=== PATIENT | male | born 1945 | race Caucasian/White ===

== ENCOUNTER → 2020-01-11 14:37 | Outpatient (BNVA) | payer MEDICARE, SELFPAY | PROVIDERS: Family Provider Nurse Practitioner; PCP Nurse Practitioner; Visit Provider Nurse Practitioner | DX: I11.0 Hypertensive heart disease with heart failure (principal) | CPT/HCPCS: 80053; 81003; 85025 ==

== ENCOUNTER → 2020-01-31 09:30 | Outpatient (BNVA) | payer MEDICARE, SELFPAY | PROVIDERS: Family Provider Nurse Practitioner; PCP Nurse Practitioner; Visit Provider Nurse Practitioner | DX: E11.9 Type 2 diabetes mellitus without complications (principal); I10 Essential (primary) hypertension | CPT/HCPCS: 80061; 83036 ==

== ENCOUNTER → 2020-04-20 10:11 | Outpatient (BNVA) | payer MEDICARE, SELFPAY | PROVIDERS: Family Provider Nurse Practitioner; PCP Nurse Practitioner; Visit Provider Nurse Practitioner | DX: I10 Essential (primary) hypertension (principal); E78.5 Hyperlipidemia, unspecified; Z95.1 Presence of aortocoronary bypass graft; E11.9 Type 2 diabetes mellitus without complications; I50.9 Heart failure, unspecified; J44.9 Chronic obstructive pulmonary disease, unspecified | CPT/HCPCS: 80053; 81000; 83036 ==

== ENCOUNTER 2020-05-09 12:53 | Emergency (ER) | payer MEDICARE, SELFPAY ==
[2020-05-09 13:05] VITALS: PULSE 60; RESP 18; TEMP 36.5; O2SAT 91; BMI 28.8
--- NOTE | 2020-05-09 14:01 | W.ED.SKABFB ---
HPI - Skin/Abscess/Foreign Bdy General: Chief complaint: General Medical Stated complaint: chemical ortega Time Seen by Provider: 05/09/20 13:35 Source: patient Mode of arrival: ambulatory Limitations: no limitations History of Present Illness: HPI narrative: Patient is a very nice 75-year-old male who presents to ED today with complaints of itching to his bilateral forearms. Patient tells me approximately 1.5 weeks ago he was spraying bug spray around his house when the wind caused some of the spray to get on his forearms. Patient tells me he irrigated the arms but has noticed itching since that time. He has been trying several OTC lotions/creams/ointments without much relief. He states placing cold packs on his arms seems to help with the itching. He has not noticed any blisters or swelling. Patient has not started any new medications recently. He has had no other known household or chemical exposures. MD complaint: rash Onset (ago): day(s) Tetanus up to date: yes Location: E and RUE Quality: pruritic Pain Consistency: constant Relieving factors: cold therapy Exacerbating factors: none Context: other (chemical use) Associated symptoms: Deny chills, fever(s), nausea or vomiting Review of Systems Const: Denies: fever(s) or chills Eyes: Denies: change in vision, blurry vision, photophobia, floaters or seeing flashes ENMT: Denies: throat pain, enlarged tonsils, odynophagia, swelling of lips/tongue, oral sores, bleeding gums, nasal discharge or nasal congestion Card: Denies: chest pain Resp: Denies: dyspnea GI: Denies: abdominal pain, nausea or vomiting Musc: Denies: neck pain or back pain Skin/Breast: Reports: rash and pruritus; Denies: skin pain Neuro: Denies: numbness in extremities or sensory changes PFS ED PFSH: Medical History (Updated 05/09/20 @ 14:04 by AARON Allison) Abdominal aortic aneurysm (AAA) Aortic stenosis, mild Carotid stenosis CHF (congestive heart failure) CKD (chronic kidney disease) COPD (chronic obstructive pulmonary disease) Dyslipidemia History of stent insertion of renal artery Hypertension Occlusion of right internal carotid artery Pulmonary emphysema Renal artery stenosis Tobacco abuse Type 2 diabetes mellitus Surgical History Aortocoronary bypass status History of carotid artery stenosis History of colon cancer 2014 History of endovascular stent graft for abdominal aortic aneurysm (AAA) History of fracture of right shoulder 3 times surgery- bone repair with screws and anchor History of procedure for peripheral vascular disease Right leg Hx of primary malignant neoplasm of urinary bladder Status post four vessel coronary artery bypass (~02/2014) Family History Family/Other Diabetes Hypertension CAD (coronary artery disease) Social History Smoking and tobacco status: current every day smoker Second hand smoke exposure: Yes Smoking risk assessment/counseling performed?: Yes Alcohol intake: current Desire information about alcohol rehabilitation?: No Counseling given: No Desire information about substance/drug rehabilitation?: No Counseling given: No Adopted: No Caregiver/support person: No Lives independently: Yes Household members: spouse Housing: House Marital status: service: No Current occupational status: retired History of recent travel: No Current gender identity: Male Physical Exam Const: COMMON NORMALS: no acute distress, average body habitus, patient oriented x3, no limitations, healthy appearing, alert and well nourished HENMT: COMMON NORMALS: normocephalic and atraumatic HEAD & SCALP: normocephalic and atraumatic Resp: COMMON NORMALS: normal respiratory effort and clear to auscultation bilaterally AUSCULTATION: clear to auscultation bilaterally Cardio: COMMON NORMALS: regular rate and regular rhythm RATE: regular rate RHYTHM: regular rhythm Extremity: COMMON NORMALS: normal to inspection, full ROM, capillary refill normal, no joint enlargement and no clubbing, cyanosis or edema GENERAL: Yes normal exam except as noted Neuro: COMMON NORMALS: patient oriented x3 SENSORIUM/ORIENTATION: Yes alert Skin: OTHER: 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; he has a few scattered erythematous papules to bilateral forearms that he state are itchy Course Vital Signs: Vital signs: Vital Signs Temperature 97.7 F 05/09/20 13:05 Pulse Rate 78 05/09/20 14:32 Respiratory Rate 18 05/09/20 14:32 Blood Pressure 136/75 05/09/20 14:32 Pulse Oximetry 98 05/09/20 14:32 Discharge Plan Discharge Patient Disposition: Home, Self-Care Clinical Impression: Irritant contact dermatitis Qualifiers: Contact dermatitis trigger: other chemical product Qualified Code(s): L24.5 - Irritant contact dermatitis due to other chemical products Condition: Stable Prescriptions: New hydrocortisone 1 % cream 1 applic TOPICAL BID PRN (Reason: itching) Qty: 14.2 RF: 0 prednisone 10 mg tablet 10 mg PO DAILY 7 Days Qty: 20 RF: 0 No Action nitroglycerin [Nitrostat] 0.4 mg tablet, sublingual 0.4 mg SUBLINGUAL Q5M PRN (Reason: chest pain) Qty: 25 RF: 5 amlodipine [Norvasc] 10 mg tablet 10 mg PO DAILY Qty: 30 RF: 2 fenofibrate nanocrystallized [Tricor] 145 mg tablet 145 mg PO DAILY Qty: 30 RF: 2 furosemide 40 mg tablet 40 mg PO BID Qty: 60 RF: 2 isosorbide mononitrate 60 mg tablet extended release 24 hr 60 mg PO BID Qty: 60 RF: 2 Tradjenta 5 mg tablet 5 mg PO DAILY Qty: 30 RF: 2 metolazone 2.5 mg tablet 2.5 mg PO DAILY Qty: 14 RF: 0 Anoro Ellipta 62.5-25 mcg/actuation blister with device 1 inh INHALATION DAILY Qty: 60 RF: 2 metoprolol tartrate 75 mg tablet 75 mg PO BID Qty: 60 RF: 2 hydralazine 50 mg tablet 50 mg PO TID Qty: 90 RF: 2 Discharge Orders: Discharge Order (Routine); Ordered 05/09/20 Ordered By: Candis Yao Referrals: Glenys Portillo, [facility] [Primary Care Provider] - Patient Instructions: Chemical Ortega, Dermatitis (Contact), Chemical Skin Burn (ED) Discharge Date/Time: 05/09/20 14:36 Coding Level of Care Code ED Media Relations Coordinator for Katherine Orr
[2020-05-09 14:32] VITALS: BP 136/75; PULSE 78; RESP 18; O2SAT 98
== END 2020-05-09 14:36 | disposition home or self-care (01) ==
PROVIDERS: Emergency Provider Physician Assistant; PCP Nurse Practitioner
DX: T65.891A Toxic effect of other specified substances, accidental (unintentional), initial encounter (principal); L24.5 Irritant contact dermatitis due to other chemical products; F17.210 Nicotine dependence, cigarettes, uncomplicated; I11.0 Hypertensive heart disease with heart failure; I50.9 Heart failure, unspecified; J44.9 Chronic obstructive pulmonary disease, unspecified; E78.5 Hyperlipidemia, unspecified; E11.9 Type 2 diabetes mellitus without complications
CPT/HCPCS: 12345; 99281

== ENCOUNTER → 2020-07-17 15:54 | Outpatient (BNVA) | payer MEDICARE, SELFPAY | PROVIDERS: PCP Nurse Practitioner; Visit Provider Nurse Practitioner | DX: E11.65 Type 2 diabetes mellitus with hyperglycemia (principal); I12.9 Hypertensive chronic kidney disease with stage 1 through stage 4 chronic kidney disease, or unspecified chronic kidney disease; N18.9 Chronic kidney disease, unspecified; E55.9 Vitamin D deficiency, unspecified; E78.5 Hyperlipidemia, unspecified; Z95.1 Presence of aortocoronary bypass graft; J43.1 Panlobular emphysema; K21.9 Gastro-esophageal reflux disease without esophagitis | CPT/HCPCS: 80053; 80061; 81000; 82306; 82310; 83036; 83970; 85025 ==

== ENCOUNTER → 2020-10-17 10:47 | Outpatient (BNVA) | payer MEDICARE, SELFPAY | PROVIDERS: PCP Nurse Practitioner; Visit Provider Nurse Practitioner | DX: J43.1 Panlobular emphysema (principal); E78.5 Hyperlipidemia, unspecified; Z95.1 Presence of aortocoronary bypass graft; E11.65 Type 2 diabetes mellitus with hyperglycemia; K21.9 Gastro-esophageal reflux disease without esophagitis; E55.9 Vitamin D deficiency, unspecified; I11.0 Hypertensive heart disease with heart failure; I50.9 Heart failure, unspecified | CPT/HCPCS: 80053; 81000; 83036; 85025 ==

== ENCOUNTER 2021-01-02 21:00 | Inpatient (IN) | payer MEDICARE, SELFPAY ==
[2021-01-02] VITALS (7 sets, daily range): BP systolic 143–192; BP diastolic 83–96; PULSE 63–73; RESP 21–24; TEMP 36.6; O2SAT 92–98; BMI 28.2
--- NOTE | 2021-01-02 21:11 | ECG_ITS ---
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 Measurements Intervals [place] Rate: 74 P: 110 DE: 268 QRS: -41 QRSD: 154 T: 88 QT: 427 QTc: 475 Interpretive Statements SINUS RHYTHM WITH FIRST DEGREE AV BLOCK LEFT AXIS DEVIATION [QRS AXIS < -30] LEFT BUNDLE BRANCH BLOCK [120+ ms QRS DURATION, 80+ ms Q/S IN V1/V2, 85+ ms R IN I/aVL/V5/V6] Compared to ECG 12/24/2018 14:33:52 First degree AV block now present Sinus bradycardia no longer present Short DE interval no longer present Electronically Signed On 01-03-2021 20:25:38 AQUACULTURE PROGRAM DIRECTOR by Lauren Thomas M.D. [email or web address]
--- NOTE | 2021-01-02 21:11 | XR_ITS ---
WS: [id number] Portable AP upright chest, 01/02/2021 Clinical Data: sob Comparison: PA and lateral chest, 12/24/2018. Findings: Patchy bilateral opacities may represent interstitial edema.. The heart is enlarged. No nod ules, masses or effusions are seen. Midline sternotomy sutures are present. The aortic arch and desce nding aorta show calcification and tortuosity. There is an orthopedic anchor in the right humeral hea d. XR/XR chest 1V portable [id number] Impression: 1. Cardiomegaly and atherosclerosis. 2. Diffuse interstitial opacities which may represent pulmonary edema.
--- NOTE | 2021-01-02 21:22 | ED_ITS ---
HPI - SOB/Dyspnea General: Chief Complaint: Shortness of Breath/Dyspnea Stated Complaint: COPD/RESP. DISTRESS Time Seen by Provider: 01/02/21 21:14 Source: patient and EMS Mode of arrival: EMS Limitations: no limitations History of Present Illness: HPI Narrative: 76-year-old male has a history of congestive heart failure states tonight he started having increasing shortness of breath. Patient called EMS and he was hypoxic and they arrived and he has been on 4 L. Patient is in distress and able to talk in roughly 5-7 word sentences. He denies any fever or cough. Denies any chest pain. Patient is not on oxygen at baseline. Associated symptoms: Deny abdominal pain, chest pain, fever(s), nausea or vomiting Review of Systems Const: Denies: fever(s), chills, body aches or change in appetite Eyes: Denies: blurry vision or eye discomfort ENMT: Denies: throat pain or dental pain Card: Denies: chest pain Resp: Reports: dyspnea GI: Denies: abdominal pain, nausea, vomiting or diarrhea : Denies: dysuria Musc: Denies: neck pain or back pain Skin/Breast: Denies: rash Neuro: Denies: headache(s) Psych: Denies: depression David/Lymph: Denies: easy bruising All/Imm: Denies: urticaria PFSH ED PFSH: Medical History Abdominal aortic aneurysm (AAA) Aortic stenosis, mild Carotid stenosis CHF (congestive heart failure) CKD (chronic kidney disease) COPD (chronic obstructive pulmonary disease) Dyslipidemia History of stent insertion of renal artery Hypertension Occlusion of right internal carotid artery Pulmonary emphysema Renal artery stenosis Tobacco abuse Type 2 diabetes mellitus Vitamin D deficiency Surgical History Aortocoronary bypass status History of carotid artery stenosis History of colon cancer 2014 History of endovascular stent graft for abdominal aortic aneurysm (AAA) History of fracture of right shoulder 3 times surgery- bone repair with screws and anchor History of procedure for peripheral vascular disease Right leg Hx of primary malignant neoplasm of urinary bladder Status post four vessel coronary artery bypass (~02/2014) Family History Family/Other Diabetes Hypertension CAD (coronary artery disease) Social History Smoking and tobacco status: current every day smoker Second hand smoke exposure: Yes Smoking risk assessment/counseling performed?: Yes Alcohol intake: current Desire information about alcohol rehabilitation?: No Counseling given: No Desire information about substance/drug rehabilitation?: No Counseling given: No Adopted: No Caregiver/support person: No Lives independently: Yes Household members: spouse Housing: House Marital status: service: No Current occupational status: retired History of recent travel: No Current gender identity: Male Physical Exam Const: COMMON NORMALS: patient oriented x3 GENERAL APPEARANCE: in distress and ill appearing HENMT: COMMON NORMALS: normocephalic and atraumatic HEAD & SCALP: normocephalic and atraumatic Eye: COMMON NORMALS: Equal, round and reactive pupils present and EOMs intact bilaterally PUPIL: Yes Equal, round and reactive pupils present Neck/C-Spine: COMMON NORMALS: full ROM and supple Chest: COMMONS NORMALS: normal inspection of the chest and normal palpation of entire chest wall Resp: EFFORT & INSPECTION: Yes tachypneic and Yes respiratory distress AUSCULTATION: rales Cardio: COMMON NORMALS: regular rate, regular rhythm and No murmurs present (Cardio) RATE: regular rate RHYTHM: regular rhythm GI: COMMON NORMALS: Normal to inspection, nondistended, normoactive bowel sounds present, Soft to palpation, non-tender and no masses PALPATION: Yes Soft to palpation Extremity: COMMON NORMALS: full ROM NARRATIVE EXTREMITY EXAM: 2+ edema Neuro: COMMON NORMALS: patient oriented x3, moves all extremities and no focal motor deficits Psych: COMMON NORMALS: mental status grossly normal, Normal thought process present and cooperative THOUGHT PROCESS: Normal thought process present Skin: COMMON NORMALS: no rashes or lesions noted and no wounds GENERAL SKIN EXAM: no rashes or lesions noted Course Vital Signs: Vital signs: Vital Signs Temperature 97.9 F 01/02/21 21:20 Pulse Rate 72 01/02/21 21:24 Respiratory Rate 24 H 01/02/21 21:24 Blood Pressure 172/83 01/02/21 21:24 Pulse Oximetry 98 01/02/21 21:24 MDM - SOB/Dyspnea MDM Narrative: Medical decision making narrative: Max presents here with CHF exacerbation and is requiring oxygen. Patient given Lasix here. Patient had blood pressure treatment as well. I spoke to the hospitalist and will admit. Is no signs of pulmonary embolism. EKG here shows no sign of acute STEMI. Lab Data: Labs: Lab Results 01/02/21 01/02/21 01/02/21 Range/Units 21:30 21:30 21:30 WBC 13.1 H (4.0-10.0) 10^3/ uL RBC 4.47 (4.1-5.3) 10^6/u L Hgb 13.2 (11.7-16.6) g/dL Hct 40.9 L (42.0-52.0) % MCV 91.5 (80-94) fL MCH 29.5 (28.0-34.0) pg MCHC 32.3 (30.0-36.0) g/dL RDW 15.9 H (12.1-15.1) % Plt Count 260 (130-400) 10^3/c mm MPV 10.3 (7.4-10.4) fL Neut % (Auto) 90.7 % Lymph % (Auto) 3.0 % [place] % (Auto) 4.8 % Eos % (Auto) 0.0 % Baso % (Auto) 0.4 % Neut # (Auto) 11.86 H (1.8-7.7) 10^3/u L Lymph # (Auto) 0.4 L (0.8-4.8) 10^3/u L [place] # (Auto) 0.6 (0.2-0.9) 10^3/u L Eos # (Auto) 0.0 (0.0-0.8) 10^3/u L Baso # (Auto) 0.1 (0.0-0.1) 10^3/u L Nucleated RBC % (a uto) 0 % Nucleated RBCs # 0.0 /100WBC Sodium 138 (136-145) mmol/L Potassium 3.6 (3.5-5.1) mmol/L Chloride 99 (98-107) mmol/L Carbon Dioxide 26 (22-29) mmol/L Anion Gap 16.6 (5-19) BUN 34 H (8-23) mg/dL Creatinine 2.3 H (0.7-1.2) mg/dL GFR Calculation Not Reportable Glucose 134 H (65-115) mg/dL Calculated Osmolal ity 296 H (285-295) mOsm/k g Calcium 10.0 (8.5-10.5) mg/dL Total Bilirubin 1.3 H (0.15-1.2) mg/dL AST 17 (0-40) U/L ALT 13 (0-41) U/L Alkaline Phosphata se 39 L (40-130) IU/L Troponin T Baselin e 99 H (0-15) ng/L NT-Pro-B Natriuret Pep 64209 H (0-450) pg/mL Total Protein 7.6 (6.6-8.7) g/dL Albumin 3.9 (3.5-5.2) g/dL Globulin 3.7 (1.3-4.6) g/dL SARS-CoV-2 Ag (Rap id) (Negative) 01/02/21 Range/Units 21:59 WBC (4.0-10.0) 10^3/ uL RBC (4.1-5.3) 10^6/u L Hgb (11.7-16.6) g/dL Hct (42.0-52.0) % MCV (80-94) fL MCH (28.0-34.0) pg MCHC (30.0-36.0) g/dL RDW (12.1-15.1) % Plt Count (130-400) 10^3/c mm MPV (7.4-10.4) fL Neut % (Auto) % Lymph % (Auto) % [place] % (Auto) % Eos % (Auto) % Baso % (Auto) % Neut # (Auto) (1.8-7.7) 10^3/u L Lymph # (Auto) (0.8-4.8) 10^3/u L [place] # (Auto) (0.2-0.9) 10^3/u L Eos # (Auto) (0.0-0.8) 10^3/u L Baso # (Auto) (0.0-0.1) 10^3/u L Nucleated RBC % (a uto) % Nucleated RBCs # /100WBC Sodium (136-145) mmol/L Potassium (3.5-5.1) mmol/L Chloride (98-107) mmol/L Carbon Dioxide (22-29) mmol/L Anion Gap (5-19) BUN (8-23) mg/dL Creatinine (0.7-1.2) mg/dL GFR Calculation Glucose (65-115) mg/dL Calculated Osmolal ity (285-295) mOsm/k g Calcium (8.5-10.5) mg/dL Total Bilirubin (0.15-1.2) mg/dL AST (0-40) U/L ALT (0-41) U/L Alkaline Phosphata se (40-130) IU/L Troponin T Baselin e (0-15) ng/L NT-Pro-B Natriuret Pep (0-450) pg/mL Total Protein (6.6-8.7) g/dL Albumin (3.5-5.2) g/dL Globulin (1.3-4.6) g/dL SARS-CoV-2 Ag (Rap id) Negative (Negative) Imaging Data^: CXR: Attestation: I personally reviewed and interpreted this imaging study as follows: Radiologist's impression: pulmonary edema EKG Data^: EKG 1: Attestation: I personally reviewed and interpreted this EKG as follows: EKG Interpretation Date: 01/02/21 EKG interpretation time: 21:19 Interpretation: nsr hr [address] or t wave abnormalitie qrs 154 qtc 454 LBBB LAd Discharge Plan Discharge Patient Disposition: Admitted As Inpatient Clinical Impression: CHF (congestive heart failure), Hypertension Condition: Stable Prescriptions: No Action nitroglycerin [Nitrostat] 0.4 mg tablet, sublingual 0.4 mg SUBLINGUAL Q5M PRN (Reason: chest pain) Qty: 25 RF: 5 amlodipine [Norvasc] 10 mg tablet 10 mg PO DAILY Qty: 30 RF: 2 budesonide-formoterol [Symbicort] 160-4.5 mcg/actuation HFA aerosol inhaler 2 puff INHALATION Q12H Qty: 10.2 RF: 2 fenofibrate nanocrystallized [Tricor] 145 mg tablet 145 mg PO DAILY Qty: 30 RF: 2 furosemide 40 mg tablet 40 mg PO BID Qty: 60 RF: 2 hydralazine 50 mg tablet 50 mg PO TID Qty: 90 RF: 2 isosorbide mononitrate 60 mg tablet extended release 24 hr 60 mg PO BID Qty: 60 RF: 2 Tradjenta 5 mg tablet 5 mg PO DAILY Qty: 30 RF: 2 metoprolol tartrate 75 mg tablet 75 mg PO BID Qty: 60 RF: 2 famotidine [Pepcid] 40 mg tablet 40 mg PO BID Qty: 180 RF: 0 cholecalciferol (vitamin D3) 125 mcg (5,000 unit) capsule 125 mcg PO DAILY Qty: 90 RF: 0 metolazone 2.5 mg tablet 2.5 mg PO DAILY PRN (Reason: edema) Qty: 14 RF: 0 hydrocortisone 1 % cream 1 applic TOPICAL BID PRN (Reason: itching) Qty: 14.2 RF: 0 Referrals: Glenys Portillo FNP-C [Primary Care Provider] - Coding Level of Care Code ED Animal Skinner for Chg Fwd Exam Comprehensive
[2021-01-02 21:50] LABS: Basophils # 0.1 10^3/uL (0.0-0.1); Basophils % 0.4 %; Hematocrit 40.9 % (42.0-52.0); Hemoglobin 13.2 g/dL (11.7-16.6); Lymphocytes # 0.4 10^3/uL (0.8-4.8); Mean Corpuscular HGB Conc 32.3 g/dL (30.0-36.0); Mean Corpuscular Hemoglobin 29.5 pg (28.0-34.0); Mean Corpuscular Volume 91.5 fL (80-94); Mean Platelet Volume 10.3 fL (7.4-10.4); Monocytes # 0.6 10^3/uL (0.2-0.9); Monocytes % 4.8 %; Neutrophils # 11.86 10^3/uL (1.8-7.7); Neutrophils % 90.7 %; Nucleated Red Blood Cells % 0 %; Platelet Count 260 10^3/cmm (130-400); Red Blood Count 4.47 10^6/uL (4.1-5.3); Red Cell Distribution Width 15.9 % (12.1-15.1); White Blood Count 13.1 10^3/uL (4.0-10.0)
[2021-01-02] MEDS: FUROsemide 10 mg/mL SDV 4mL 40 MG IVP (21:56)
[2021-01-02 22:36] LABS: Troponin(5th) Baseline 99 ng/L (0-15)
[2021-01-02 22:44] LABS: Alanine Aminotransferase 13 U/L (0-41); Albumin Level 3.9 g/dL (3.5-5.2); Alkaline Phosphatase 39 IU/L (40-130); Anion Gap 16.6 (5-19); Aspartate Amino Transferase 17 U/L (0-40); Blood Urea Nitrogen 34 mg/dL (8-23); Carbon Dioxide 26 mmol/L (22-29); Chloride 99 mmol/L (98-107); Globulin 3.7 g/dL (1.3-4.6); Glucose 134 mg/dL (65-115); NT Pro B Type Natriuretic Pept 16079 pg/mL (0-450); Osmolality Calculated 296 mOsm/kg (285-295); Potassium 3.6 mmol/L (3.5-5.1); Sodium 138 mmol/L (136-145); Total Bilirubin 1.3 mg/dL (0.15-1.2); Total Protein 7.6 g/dL (6.6-8.7)
[2021-01-02 22:45] LABS: SARS Covid-2 Antigen Negative (Negative)
[2021-01-02] MEDS: labetalol 5 mg/mL SDV 20mL 10 MG IVP (23:12)
--- NOTE | 2021-01-02 23:12 | P.HP_ITS ---
Providers/Chief Complaint Primary Care Provider: KASHMIR Krueger Chief Complaint: COPD/RESP. DISTRESS History of Present Illness Zak Gibbs is a 76 year old male with a history of congestive heart failure, coronary artery disease, hypertension presented to the emergency department with a complaint of progressive bilateral lower extremity swelling and shortness of breath. Patient stated his lower extremity edema continued to get worse despite being compliant with his oral Lasix therapy. Chest x-ray done in the ED demon strates pulmonary edema. BNP is significantly elevated. His troponin is elevated. Patient is not hypoxic. He is admitted for further management of CHF exacerbation. Review of Systems Narrative: Except as documented, all other systems reviewed and negative. Medications/Allergies Home Medications Medication Instructions Recorded Confirmed Last Taken Type nitroglycerin 0.4 mg sublingual 0.4 mg SUBLINGUAL Q5M PRN #25 tab 02/02/20 10/17/20 Unknown Rx tablet hydrocortisone 1 applic TOPICAL BID PRN #14.2 gm 05/09/20 10/17/20 Unknown Rx amlodipine 10 mg tablet 10 mg PO DAILY #30 tab 10/17/20 10/17/20 Unknown Rx budesonide-formoterol HFA 160 2 puff INHALATION Q12H #10.2 gm 10/17/20 10/17/20 Unknown Rx mcg-4.5 mcg/actuation aerosol inhaler cholecalciferol (vitamin D3) 125 125 mcg PO DAILY #90 cap 10/17/20 10/17/20 Unknown Rx mcg (5,000 unit) capsule famotidine 40 mg tablet 40 mg PO BID #180 tab 10/17/20 10/17/20 Unknown Rx fenofibrate nanocrystallized 145 145 mg PO DAILY #30 tab 10/17/20 10/17/20 Unknown Rx mg tablet furosemide 40 mg tablet 40 mg PO BID #60 tab 10/17/20 10/17/20 Unknown Rx hydralazine 50 mg tablet 50 mg PO TID #90 tab 10/17/20 10/17/20 Unknown Rx isosorbide mononitrate 60 mg 60 mg PO BID #60 tab 10/17/20 10/17/20 Unknown Rx tablet,extended release 24 hr linagliptin 5 mg tablet 5 mg PO DAILY #30 tab 10/17/20 10/17/20 Unknown Rx metolazone 2.5 mg tablet 2.5 mg PO DAILY PRN #14 tab 10/17/20 10/17/20 Unknown Rx metoprolol tartrate 75 mg tablet 75 mg PO BID #60 tab 10/17/20 10/17/20 Unknown Rx Allergies Allergy/AdvReac Type Severity Reaction Status Date / Time morphine Allergy Unknown Verified 01/02/21 21:24 PFSH Acute PFSH: Medical History Abdominal aortic aneurysm (AAA) Aortic stenosis, mild Carotid stenosis CHF (congestive heart failure) CKD (chronic kidney disease) COPD (chronic obstructive pulmonary disease) Dyslipidemia History of stent insertion of renal artery Hypertension Occlusion of right internal carotid artery Pulmonary emphysema Renal artery stenosis Tobacco abuse Type 2 diabetes mellitus Vitamin D deficiency Surgical History Aortocoronary bypass status History of carotid artery stenosis History of colon cancer 2014 History of endovascular stent graft for abdominal aortic aneurysm (AAA) History of fracture of right shoulder 3 times surgery- bone repair with screws and anchor History of procedure for peripheral vascular disease Right leg Hx of primary malignant neoplasm of urinary bladder Status post four vessel coronary artery bypass (~02/2014) Family History Family/Other Diabetes Hypertension CAD (coronary artery disease) Social History Smoking and tobacco status: current every day smoker Second hand smoke exposure: Yes Smoking risk assessment/counseling performed?: Yes Alcohol intake: current Desire information about alcohol rehabilitation?: No Counseling given: No Desire information about substance/drug rehabilitation?: No Counseling given: No Adopted: No Caregiver/support person: No Lives independently: Yes Household members: spouse Housing: House Marital status: service: No Current occupational status: retired History of recent travel: No Current gender identity: Male Vitals/I&O/Wt Last Vital Signs Temp 97.9 F 01/02/21 21:20 Pulse 72 01/02/21 21:24 Resp 24 H 01/02/21 21:24 BP 172/83 01/02/21 21:24 Pulse Ox 98 01/02/21 21:24 Weight last 48 hrs Weight 99.79 kg Physical Exam Const: COMMON NORMALS: no acute distress, patient oriented x3, alert and well nourished GENERAL APPEARANCE: cooperative HENMT: COMMON NORMALS: normocephalic and atraumatic MOUTH: Normal oral and palatal mucosa present and moist mucous membranes abnormal Eye: COMMON NORMALS: Equal, round and reactive pupils present, EOMs intact bilaterally, conjunctivae normal and no scleral icterus Neck/C-Spine: COMMON NORMALS: no lymphadenopathy, supple and no JVD Lymph: LYMPHATIC: no lymphadenopathy noted Chest: COMMONS NORMALS: normal inspection of the chest and normal palpation of entire chest wall Resp: COMMON NORMALS: normal respiratory effort and No retractions AUSCULTATION: crackles Laterality: bilateral, no rhonchi and no wheezes Cardio: COMMON NORMALS: regular rate, regular rhythm, S1 normal heart sound present and S2 normal heart sound present GI: COMMON NORMALS: Normal to inspection, nondistended, normoactive bowel so unds present, Soft to palpation, non-tender and No hepatosplenomegaly present : COMMON NORMALS: Yes no CVA tenderness Back/Pelvis: COMMON NORMALS: no thoracic nor lumbar tenderness and thoraco- lumbar ROM normal Extremity: OTHER: 3+ bilateral lower extremity pitting edema Neuro: COMMON NORMALS: patient oriented x3, CN's II-XII intact bilaterally, moves all extremities and no focal motor deficits Psych: COMMON NORMALS: mental status grossly normal, Normal thought process present, cooperative and speech normal Skin: COMMON NORMALS: no rashes or lesions noted and no jaundice Data : 01/03/21 03:25 01/03/21 03:25 A&P Assessment and plan (1) Acute exacerbation of CHF (congestive heart failure): Status: Acute (2) Pulmonary edema: Status: Acute (3) Chronic kidney disease, stage III (moderate): Status: Acute (4) COPD (chronic obstructive pulmonary disease): Status: Chronic Qualifiers: COPD type: emphysema Emphysema type: panlobular Qualified Code(s): J43.1 - Panlobular emphysema (5) Type 2 diabetes mellitus: Status: Chronic Qualifiers: Diabetes mellitus complication status: with hyperglycemia Diabetes mellitus usp insulin use: without buttermaker helper use Qualified Code(s): E11.65 - Type 2 diabetes mellitus with hyperglycemia (6) Elevated troponin: Status: Acute Additional A&P Information Admit to the medical floor. Elevated troponin likely secondary to demand ischemia. Patient has no chest pain. Treat CHF exacerbation with IV Lasix. We will continue his home dose metolazone. Daily weight. Restrict fluid to 1500 mls per day. Obtain echocardiogram. Bronchodilators Insulin sliding scale for glucose management. Aggressive blood pressure control. Hydralazine IV as needed for BP spikes. Continue home antihypertensives. Attestations Medical Necessity Statement*: Patient need to be hospitalized for further management of CHF exacerbation that has failed outpatient treatment. He is expected to spend more than 2 midnights. Coding Level of Care Code Acute Transit Mixer Operator for [facility] Fwd Exam Comprehensive Diagnoses Acute exacerbation of CHF (congestive heart failure) I50.9 Pulmonary edema J81.1 Chronic kidney disease, stage III (moderate) N18.30 COPD (chronic obstructive pulmonary disease) J43.1 COPD type: emphysema Emphysema type: panlobular Type 2 diabetes mellitus E11.65 Diabetes mellitus complication status: with hyperglycemia Diabetes mellitus usp insulin use: without buttermaker helper use Elevated troponin R77.8
--- NOTE | 2021-01-02 23:20 | ECG_ITS ---
[facility] Test Date: 2021-01-02 Pat Name: Zak Gibbs Department: Room: Gender: Male Human Resources Temp: : 1945 Requested By: Marylou Hernandez Order Number: [id number] Ottoniel MD: Lauren Thomas M.D. Measurements Intervals [place] Rate: 71 P: 113 [place]: 304 QRS: -35 QRSD: 150 T: 74 QT: 429 QTc: 467 Interpretive Statements SINUS RHYTHM WITH FIRST DEGREE AV BLOCK LEFT AXIS DEVIATION [QRS AXIS < -30] LEFT BUNDLE BRANCH BLOCK [120+ ms QRS DURATION, 80+ ms Q/S IN V1/V2, 85+ ms R IN I/aVL/V5/V6] Compared to ECG 01/02/2021 21:19:01 No significant changes Electronically Signed On 01-03-2021 20:30:47 PHOTOGRAPHY ASSISTANT by Lauren Thomas M.D. [id number]
--- NOTE | 2021-01-02 23:33 | PC.NURSE ---
EKG done at 2330 shown to ER doctor
[2021-01-03] VITALS (7 sets, daily range): BP systolic 148–165; BP diastolic 67–85; PULSE 62–71; RESP 18–20; TEMP 36.5–36.9; O2SAT 92–97; BMI 28.2
[2021-01-03 00:12] LABS: Troponin 5 2HR 127.4 ng/L (0-15); Troponin 5 2HR Delta 28.4 ABS# (0-10)
--- NOTE | 2021-01-03 01:30 | USCV_ITS ---
Bernie, Max Age: 76 Gender: M : 1945 Exam Date: 01/03/2021 06:49 Ordering Phys: Angus Villagran MD Technologist: Deyanira Flannery [place] [facility] [place]: CHF BP: 165 / 77 HR: 66 Rhythm: Sinus Technical Quality: Adequate MEASUREMENTS (Male / Female) Normal Values 2D ECHO LV Diastolic Diameter PLAX 6.1 cm 4.2 - 5.9 / 3.9 - 5.3 cm LV Systolic Diameter PLAX 4.6 cm LV Chamber Size 3.4 cm IVS Diastolic Thickness 1.2 cm 0.6 - 1.0 / 0.6 - 0.9 cm IVS Systolic Thickness 1.9 cm LVPW Diastolic Thickness 1.7 cm 0.6 - 1.0 / 0.6 - 0.9 cm LVPW Systolic Thickness 2.3 cm RV Chamber Size 3.9 cm LVOT Diameter 2.1 cm LV Ejection Fraction 2D Teich 49.0 % LV Ejection Fraction MOD 2C 53.6 % LV Ejection Fraction 2C AL 54.1 % LA Diameter 4.4 cm LA Width 4.2 cm LA Height 5.7 cm RA Width 4.7 cm RA Height 5.0 cm Aorta at Sinotubular Diameter 2.5 cm M-MODE LV Diastolic Diameter MM 6.1 cm 4.2 - 5.9 / 3.9 - 5.3 cm LV Systolic Diameter MM 3.7 cm LV Ejection Fraction MM Teich 69.4 % IVS Diastolic Thickness MM 0.9 cm 0.6 - 1.0 / 0.6 - 0.9 cm IVS Systolic Thickness MM 1.1 cm LVPW Diastolic Thickness MM 1.1 cm 0.6 - 1.0 / 0.6 - 0.9 cm LVPW Systolic Thickness MM 1.4 cm Aortic Annulus Diameter 3.0 cm LA Ao Ratio MM 1.5 MV E Point Septal Separation 1.2 cm DOPPLER AV Peak Velocity 199.0 cm/s LVOT Peak Velocity 110.0 cm/s AV Area Cont Eq vti 1.7 cm squared AV Area Cont Eq pk 1.8 cm squared MV Area PHT 6.5 cm squared Mitral E to A Ratio 1.8 MV E' Velocity 84.0 cm/s Mitral E to MV E' Ratio 21.7 Mitral E to LV E' Lateral Ratio 21.1 Mitral E to LV E' Septal Ratio 22.6 TR Peak Velocity 423.0 cm/s TR Peak Gradient 71.6 mmHg TV Peak E Velocity 63.0 cm/s Right Atrial Pressure 3.0 mmHg Pulmonary Artery Systolic Pressu 74.6 mmHg PV Peak Velocity 98.0 cm/s RV Acceleration Time 0.1 s RV Ejection Time 0.3 s RV AcT/ET 0.4 FINDINGS Left Ventricle Normal left ventricular size. LV systolic function is mildly reduced with EF 40 to 45%. Regional wall motion abnormalities cannot be assessed because of limited visualization. Grade 3 diastolic dysfunction is seen. Right Ventricle The right ventricle is normal in size and function. Right Atrium The right atrium is normal in size. Left Atrium The left atrium is dilated. Mitral Valve Mild mitral annular calcification is seen. No significant mitral stenosis. There is trace mitral regurgitation. Aortic Valve Aortic valve is thickened. Mild aortic stenosis is present. There is no aortic regurgitation. Tricuspid Valve Structurally normal tricuspid valve without significant stenosis or regurgitation. Insufficient TR jet to collect RVSP. Pulmonic Valve Structurally normal pulmonic valve without significant stenosis. There is no pulmonic regurgitation. Pericardium Normal pericardium without effusion. Aorta Normal ascending aorta dimension. CONCLUSIONS LV systolic function is mildly reduced with EF of 40 to 45%. Regional wall motion abnormalities cannot be assessed because of limited visualization. Grade 3 diastolic dysfunction is seen. Mild mitral annular calcification is seen. Trace mitral regurgitation present. Left atrial enlargement. Aortic valve is thickened with mild aortic stenosis. Compared to prior study from 10/07/2018, LV systolic function is decreased. Igor Wright MD (Electronically Signed) Final Date: 03 January 2021 12:35 S
[2021-01-03] MEDS: FUROsemide 10 mg/mL SDV 10mL 60 MG IVP (01:55)
[2021-01-03] MEDS: heparin 5,000 unit/mL INJ 1 mL 5000 UNIT SUBCUT (01:55)
[2021-01-03 02:30] LABS: ABG PCO2 48.4 mmHg (35-45); ABG PH Result 7.38 (7.35-7.45); Arterial Blood Gas Hematocrit 42.7 % (42-52); Base Excess ABG 2.3 mmol/L (-2.0-2.0); Blood Gas Allen Test Pos; Blood Gas Operator Identificat HARKR; Blood Gas Sample Site Radial, right; Blood Gas Sample Type Arterial; HCO3 ABG 28.3 mmol/L (22-26); Oxygen Device NC; PO2 ABG 80.2 mmHg (80.0-100.0)
--- NOTE | 2021-01-03 03:20 | ECG_ITS ---
[facility] Test Date: 2021-01-03 Pat Name: Zak Gibbs Department: Room: 271 Gender: Male Compliance Tester: : 1945 Requested By: Marylou Hernandez Order Number: [id number] Ottoniel MD: Lauren Thomas M.D. Measurements Intervals [place] Rate: 68 P: 111 [place]: 287 QRS: -39 QRSD: 178 T: 110 QT: 468 QTc: 501 Interpretive Statements SINUS RHYTHM WITH FIRST DEGREE AV BLOCK MARKED LEFT AXIS DEVIATION [QRS AXIS < -30] INTRAVENTRICULAR CONDUCTION DELAY [130+ ms QRS DURATION] LATERAL MYOCARDIAL INFARCTION [40+ ms Q WAVE AND/OR ST/T ABNORMALITY IN I/aVL/V5/V6], OF INDETERMINATE AGE Compared to ECG 01/02/2021 23:29:52 Intraventricular conduction delay now present Myocardial infarct finding now present Left bundle-branch block no longer present Electronically Signed On 01-03-2021 20:29:23 LUNCHROOM MOTHER by Lauren Thomas M.D. [id number]
[2021-01-03 03:40] LABS: Basophils % 0.1 %; Hematocrit 39.6 % (42.0-52.0); Hemoglobin 12.6 g/dL (11.7-16.6); Lymphocytes # 0.3 10^3/uL (0.8-4.8); Lymphocytes % 4.1 %; Mean Corpuscular HGB Conc 31.8 g/dL (30.0-36.0); Mean Corpuscular Hemoglobin 29.1 pg (28.0-34.0); Mean Corpuscular Volume 91.5 fL (80-94); Mean Platelet Volume 10.2 fL (7.4-10.4); Monocytes # 0.1 10^3/uL (0.2-0.9); Monocytes % 1.7 %; Neutrophils # 7.75 10^3/uL (1.8-7.7); Neutrophils % 93.4 %; Nucleated Red Blood Cells % 0 %; Platelet Count 241 10^3/cmm (130-400); Red Blood Count 4.33 10^6/uL (4.1-5.3); Red Cell Distribution Width 15.9 % (12.1-15.1); White Blood Count 8.3 10^3/uL (4.0-10.0)
[2021-01-03 04:05] LABS: Anion Gap 15.3 (5-19); Blood Urea Nitrogen 36 mg/dL (8-23); Calcium 9.5 mg/dL (8.5-10.5); Carbon Dioxide 27 mmol/L (22-29); Chloride 100 mmol/L (98-107); Glucose 159 mg/dL (65-115); Magnesium 2.7 mg/dL (1.7-2.3); Osmolality Calculated 300 mOsm/kg (285-295); Phosphorus 3.5 mg/dL (2.5-4.5); Potassium 3.3 mmol/L (3.5-5.1); Sodium 139 mmol/L (136-145); Thyroid Stimulating Hormone 0.68 uIU/mL (0.27-4.20)
[2021-01-03 05:27] LABS: Troponin 5 6HR 168.5 ng/L (0-15); Troponin 5 6HR Delta 69.5 ng/L (0-12)
--- NOTE | 2021-01-03 07:14 | PC.NURSE ---
pt stated he will get up for breakfast closer to 8 oclock.
[2021-01-03 08:30] LABS: Partial Thromboplastin Time 35.9 SECONDS (23.9-36.7)
[2021-01-03] MEDS: cholecalciferol (vitamin D3) 1,000 unit Tablet 1000 UNIT PO (09:30)
[2021-01-03] MEDS: amlodipine 10 mg Tablet PO (09:30)
[2021-01-03] MEDS: hyDRALAzine 50 mg Tablet PO (09:30)
[2021-01-03] MEDS: fenofibrate 145 mg Tablet PO (09:30)
[2021-01-03] MEDS: isosorbide mononitrate ER 60 mg Tablet PO (09:30)
[2021-01-03] MEDS: famotidine 20 mg Tablet 40 MG PO (09:30)
[2021-01-03] MEDS: metoprolol tartrate 25 mg Tablet 75 MG PO (09:30)
[2021-01-03] MEDS: heparin 5,000 unit/mL INJ 1 mL IV (09:36)
[2021-01-03] MEDS: heparin drip 25,000 UNIT/500 ML PREMIX 28 UNIT IV (09:40)
--- NOTE | 2021-01-03 09:46 | PM.CONSULT ---
Providers/Reason For Consult Consulting Physican/Specialty*: Igor Wright MD/ Cardiology Reason for Consult*: NSTEMI Requesting Physcian: Dr Rivera Attending Physician: Antoni Rivera MD Primary Care Provider: ELISE KruegerP-C History of Present Illness History of Present Illness 76 year old male past medical history significant for extensive coronary artery disease status post CABG performed at [facility] [place], peripheral vascular disease status post AAA repair, history of renal stenosis and percutaneous intervention to renal artery, history of congestive heart failure, history of chronic kidney disease with baseline creatinine around 2.0, systolic heart failure, hypertension hyperlipidemia presented to ER with burning chest pain, shortness of breath and lower extremity edema. Troponins were elevated with a significant delta. According to patient he was walking yesterday when he started feeling burning sensation in the chest. He has been having increasing swelling in the lower extremities over the last week or so. He has history of noncompliance. He does not want to stay in the hospital and wants to leave. Since coming to the hospital he had 1 more episode of chest pain in the morning. proBNP is more than 16,000. Review of Systems Const: Denies: fever(s), chills, body aches or fatigue Eyes: Denies: change in vision or blurry vision ENMT: Denies: throat pain or odynophagia Card: Reports: chest pain and other (Pretension and hyperlipidemia); Denies: palpitations, irregular heart rhythm, swelling of feet/ankles, lightheadedness, pre-syncope, dyspnea on exertion, orthopnea or leg pain with exertion Resp: Reports: dyspnea, productive cough and other (COPD and smoker); Denies: non-productive cough GI: Denies: nausea, vomiting or heartburn : Denies: difficulty urinating Musc: Denies: neck pain, back pain or joint pain Skin/Breast: Denies: rash or pruritus Neuro: Denies: headache(s), numbness in extremities, weakness in extremities, dizziness or vertigo Psych: Denies: anxiety or depression Endo: Reports: other (Type 2 diabetes with kidney dysfunction) David/Lymph: Denies: easy bruising or easy bleeding All/Imm: Denies: seasonal rhinorrhea Meds/Allergies Home Medications and Allergies Home Medications Medication Instructions Recorded Confirmed Last Taken Type nitroglycerin 0.4 mg sublingual 0.4 mg SUBLINGUAL Q5M PRN #25 tab 02/02/20 01/04/21 01/04/21 Rx tablet amlodipine 10 mg tablet 10 mg PO DAILY #30 tab 10/17/20 01/04/21 01/04/21 Rx budesonide-formoterol HFA 160 2 puff INHALATION Q12H #10.2 gm 10/17/20 01/04/21 01/04/21 Rx mcg-4.5 mcg/actuation aerosol inhaler metolazone 2.5 mg tablet 2.5 mg PO DAILY PRN #14 tab 10/17/20 01/04/21 01/04/21 Rx Pepcid 40 mg PO BID@08,17 01/04/21 01/04/21 01/04/21 History Tricor 145 mg PO DAILY@22 01/04/21 01/04/21 01/03/21 History aspirin 81 mg PO DAILY@08 01/04/21 01/04/21 01/04/21 History cholecalciferol (vitamin D3) 125 mcg PO DAILY@1700 01/04/21 01/04/21 01/03/21 History furosemide 40 mg PO BID@08,17 01/04/21 01/04/21 01/04/21 History hydralazine 50 mg PO TID@08,15,18 01/04/21 01/04/21 01/04/21 History isosorbide mononitrate 60 mg PO BID@08,17 01/04/21 01/04/21 01/04/21 History clopidogrel 75 mg PO DAILY #90 tab 01/07/21 Unknown Rx metoprolol tartrate 12.5 mg PO BID@0900,2100 #60 tab 01/07/21 Unknown Rx Allergies Allergy/AdvReac Type Severity Reaction Status Date / Time morphine Allergy Unknown Verified 01/02/21 21:24 Current Medications Current Medications Generic Name Dose Route Start Last Admin Trade Name Freq PRN Reason Stop Dose Admin Amlodipine Besylate 10 mg 01/03/21 09:00 01/03/21 09:30 Amlodipine 10 Mg Tablet PO 10 mg DAILY JUANI Administration Famotidine 40 mg 01/03/21 09:00 01/03/21 09:30 Famotidine 20 Mg Tablet PO 40 mg BID JUANI Administration Fenofibrate 145 mg 01/03/21 09:00 01/03/21 09:30 Fenofibrate 145 Mg Tablet PO 145 mg DAILY JUANI Administration Furosemide 60 mg 01/03/21 01:30 01/03/21 01:55 Furosemide 10 Mg/Ml Sdv 10ml IVP 60 mg Q12H JUANI Administration Hydralazine HCl 50 mg 01/03/21 09:00 01/03/21 09:30 Hydralazine 50 Mg Tablet PO 50 mg TID JUANI Administration Isosorbide Mononitrate 60 mg 01/03/21 09:00 01/03/21 09:30 Isosorbide Mononitrate Er 60 Mg Tablet PO 60 mg BID JUANI Administration Metoprolol Tartrate 75 mg 01/03/21 09:00 01/03/21 09:30 Metoprolol Tartrate 25 Mg Tablet PO 75 mg BID JUANI Administration Vitamin D 1,000 unit 01/03/21 09:00 01/03/21 09:30 Cholecalciferol (Vitamin D3) 1,000 Unit Tablet PO 1,000 unit DAILY JUANI Administration PFSH Acute PFSH: Medical History Abdominal aortic aneurysm (AAA) Aortic stenosis, mild Carotid stenosis CHF (congestive heart failure) COPD (chronic obstructive pulmonary disease) D-dimer, elevated Dyslipidemia Elevated lipase History of stent insertion of renal artery Hypercalcemia Hypertension Occlusion of right internal carotid artery Pulmonary emphysema Renal artery stenosis Tobacco abuse Type 2 diabetes mellitus Vitamin D deficiency Surgical History Aortocoronary bypass status History of carotid artery stenosis History of colon cancer 2014 History of endovascular stent graft for abdominal aortic aneurysm (AAA) History of fracture of right shoulder 3 times surgery- bone repair with screws and anchor History of procedure for peripheral vascular disease Right leg Hx of primary malignant neoplasm of urinary bladder Status post four vessel coronary artery bypass (~02/2014) Family History Family/Other Diabetes Hypertension CAD (coronary artery disease) Social History Smoking and tobacco status: current every day smoker Second hand smoke exposure: Yes Smoking risk assessment/counseling performed?: Yes Alcohol intake: current Desire information about alcohol rehabilitation?: No Counseling given: No Desire information about substance/drug rehabilitation?: No Counseling given: No Adopted: No Caregiver/support person: No Lives independently: Yes Household members: spouse Housing: House Marital status: service: No Current occupational status: retired History of recent travel: No Current gender identity: Male Vitals/I&O/Wt Last Vital Signs Temp 97.7 F 01/03/21 07:17 Pulse 64 01/03/21 07:17 Resp 18 01/03/21 07:17 BP 164/67 01/03/21 07:17 Pulse Ox 92 01/03/21 07:17 01/02/21 01/03/21 01/03/21 22:59 06:59 14:59 Intake Total 200 / 200 Output Total 850 / 850 500 / 500 Balance -650 / -650 -500 / -500 Weight last 48 hrs Weight 220 lb Weight 220 lb Physical Exam Narrative: EXAM NARRATIVE: GENERAL: Patient is alert, awake and oriented x3. [] NECK: No jugular vein distension. [] HEENT: No cyanosis. No icterus. No pallor. [] HEART: Regular S1 and S2. No murmur, rub or gallop. [] LUNGS: Bilateral crackles throughout the lungs ABDOMEN: Soft, nontender and nondistended. Positive bowel sounds. No guarding, rebound or tenderness. [] CENTRAL NERVOUS SYSTEM: Grossly nonfocal. [] EXTREMITIES: Lower extremities with 2+ edema bilaterally. Pulses palpable in the lower extremities, both dorsalis pedis and posterior tibial. [] A&P Assessment and plan (1) Non-ST elevation SC (NSTEMI): Status: Acute (2) Pulmonary edema: Status: Acute (3) Acute exacerbation of CHF (congestive heart failure): Status: Acute Qualifiers: Heart failure type: systolic Qualified Code(s): I50.23 - Acute on chronic systolic (congestive) heart failure (4) Abdominal aortic aneurysm (AAA): Status: Acute (5) Renal artery stenosis: Status: Acute (6) Dyslipidemia: Status: Chronic (7) Hypertension: Status: Chronic (8) Type 2 diabetes mellitus: Status: Chronic Qualifiers: Diabetes mellitus retirement insulin use: without retirement use Diabetes mellitus complication status: with hyperglycemia Qualified Code(s): E11.65 - Type 2 diabetes mellitus with hyperglycemia Patient presented with chest pressure, worsening shortness of breath and CHF exacerbation. Aggressive diuresis with IV Lasix.Strict I and Os Aspirin and Plavix. IV heparin Order echocardiogram Patient has CKD. Once he is euvolemic, will consider performing a coronary angiography. Patient does not want to stay in the hospital. I have told him that he will end up coming back to the hospital if he leaves before being euvolemic as he is quite volume overloaded. He said he will think about whether he wants to stay in the hospital or not. Thank you for involving us with care of this patient. If patient ends up staying in the hospital, we will continue to follow. Please call with questions Coding Level of Care Code Acute Greenhouse Florist for Katherine Orr Diagnoses Non-ST elevation SC (NSTEMI) I21.4 Pulmonary edema J81.1 Acute exacerbation of CHF (congestive heart failure) I50.23 Heart failure type: systolic Abdominal aortic aneurysm (AAA) I71.4 Renal artery stenosis I70.1 Dyslipidemia E78.5 Hypertension I10 Type 2 diabetes mellitus E11.65 Diabetes mellitus retirement insulin use: without oil heaterman use Diabetes mellitus complication status: with hyperglycemia
--- NOTE | 2021-01-03 10:08 | PM.PN ---
Subjective Subjective: Interval history: Patient reports breathing okay at rest. He has been having worsening dyspnea on exertion over the last week or so. He has been having chest pressure on exertion yesterday which improved with nitroglycerin. He is diagnosed with non-ST elevation TX and cardiology was consulted. He continues to smoke 2 packs/day and reports that he will not quit. He voiced to Dr. Wright that he wants to go home. I had extensive discussion regarding importance of addressing everything correctly and that he needs to be diuresed and then evaluated with coronary angiogram. Patient voiced understanding and agreed to stay. Vitals/I&O/Wt Last Vital Signs Temp 97.7 F 01/03/21 07:17 Pulse 64 01/03/21 07:17 Resp 18 01/03/21 07:17 BP 164/67 01/03/21 07:17 Pulse Ox 92 01/03/21 07:17 01/02/21 01/03/21 01/03/21 22:59 06:59 14:59 Intake Total 200 / 200 Output Total 850 / 850 500 / 500 Balance -650 / -650 -500 / -500 Weight last 48 hrs Weight 99.79 kg Weight 99.79 kg Physical Exam Narrative: EXAM NARRATIVE: Lungs with very minimal bibasilar Rales. Heart is regular. Lower extremity 3+ edema bilaterally. Abdomen is soft and nontender with positive bowel sounds. Data : 01/03/21 03:25 01/03/21 03:25 A&P Assessment and plan (1) Acute exacerbation of CHF (congestive heart failure): Status: Acute (2) Pulmonary edema: Status: Acute (3) Chronic kidney disease, stage III (moderate): Status: Acute (4) COPD (chronic obstructive pulmonary disease): Status: Chronic Qualifiers: COPD type: emphysema Emphysema type: panlobular Qualified Code(s): J43.1 - Panlobular emphysema (5) Type 2 diabetes mellitus: Status: Chronic Qualifiers: Diabetes mellitus prison insulin use: without intermodal dispatcher use Diabetes mellitus complication status: with hyperglycemia Qualified Code(s): E11.65 - Type 2 diabetes mellitus with hyperglycemia (6) Non-ST elevation TX (NSTEMI): Present on admission. Type I versus type II. Status: Acute Additional A&P Information Continue with heparin drip and IV diuresis. Appreciate Dr. Wright's help. Awaiting echo report Replete potassium Attestations Medical Necessity Statement*: Patient with non-ST elevation TX requires close inpatient monitoring and treatment. Time Spent in Patient Care: Greater than 35 minutes Coding Level of Care Code Acute Solar Lab Technician for Chg Fwd Diagnoses Acute exacerbation of CHF (congestive heart failure) I50.9 Pulmonary edema J81.1 Chronic kidney disease, stage III (moderate) N18.30 COPD (chronic obstructive pulmonary disease) J43.1 COPD type: emphysema Emphysema type: panlobular Type 2 diabetes mellitus E11.65 Diabetes mellitus prison insulin use: without intermodal dispatcher use Diabetes mellitus complication status: with hyperglycemia Non-ST elevation TX (NSTEMI) I21.4
[2021-01-03] MEDS: potassium chloride ER 20 mEq Tablet 40 MEQ PO (10:40)
--- NOTE | 2021-01-03 11:10 | PC.CHAP ---
Pastoral Care Encounter/Spiritual Assessment Type of Contact [] Declined mill helper visit [] Patient/Family/Request visit [] Outpatient visit [] Follow-up visit [] Physician referral [] Code/Alert [x] Routine visit [] Staff referral [] Actively dying [] Patient sleeping [] Family support [] [] Out of room [] Palliative care [] [x] Receiving care in room [] Pre-surgical visit [] Trauma [] Long length of stay [] ICU visit [] Other: Relational/Emotional Strength [x] Patient feels connected with others/family/visitors/staff [] Distress [] Loneliness/isolation [] Abandonment Spirituality of Patient [] Person of Velma [] Attends Orthodoxy of their Velma [] Believes in Prayer [] Reads Bible or Jainism materials [] There are Spiritual issues to be addressed [place] Interventions [] Prayer [] Active listening [] Non-anxious presence [] Spiritual/emotional support [] Crisis/trauma care [] Spiritual counseling [] Bereavement support [] Provided bereavement packet [] Provided Bible/devotional materials [] Provided toy/stuffed animal, coloring book to patient or family member [] Provided Communion [] Anointing/[place] [] Salvation [] Completed spiritual assessment [] Other: Impact on Illness or Injury [] Angry [] Fearful [] Anxious [] Often cries [] Exhaustion [] Unable to work [] Unable to attend synagogue [] Unable to walk/stand [] Unable to read [] Unable to drive [] Unable to eat/drink [] Unable to sleep [] Unable to be with family [] Patient intubated [] Other: Summary has had 1 surgery and waiting for second surgery in spring has a good attitude going home for recovery Time spent with patient 10 mins
--- NOTE | 2021-01-03 13:15 | PC.NURSE ---
Patient left AMA at this time. Patient is aware of the risk. Left in the care of spouse. IV discontinued, tip intact. Signed AMA paper.
--- NOTE | 2021-01-03 13:17 | PC.NURSE ---
doctor aware patient left AMA.
--- NOTE | 2021-01-03 13:30 | P.DS_ITS ---
Discharge Providers Date of Admission: 01/02/21 22:52 Date of Discharge: January 03, 2021 Attending Provider at Admission: Angus Villagran Attending Provider at Discharge: Antoni Rivera MD Primary Care Provider: KASHMIR Krueger Diagnoses at Discharge Discharge Diagnosis (1) Acute exacerbation of CHF (congestive heart failure): Status: Acute (2) Pulmonary edema: Status: Acute (3) Chronic kidney disease, stage III (moderate): Status: Acute (4) COPD (chronic obstructive pulmonary disease): Status: Chronic Qualifiers: COPD type: emphysema Emphysema type: panlobular Qualified Code(s): J43.1 - Panlobular emphysema (5) Type 2 diabetes mellitus: Status: Chronic Qualifiers: Diabetes mellitus filler leaf cutter long insulin use: without correction use Diabetes mellitus complication status: with hyperglycemia Qualified Code(s): E11.65 - Type 2 diabetes mellitus with hyperglycemia (6) Non-ST elevation DC (NSTEMI): Status: Acute Reason for Visit Reason for Visit: COPD/RESP. DISTRESS Hospital Course Hospital Course Patient with extensive underlying medical problems including coronary artery disease requiring CABG surgery twice as well as diabetes mellitus and lifelong smoking presented with acute combined heart failure and non-ST elevation DC. Patient was seen by cardiology and treatment was initiated including heparin drip but patient decided to leave AGAINST MEDICAL ADVICE. I had extensive discussion with patient as well as his at the bedside regarding importance of appropriate medical care to make sure we address his heart failure and myocardial infarction. Patient voiced understanding and reports that he absolutely wants to go home and will consider going to [place] in a day or 2 to see a laboratory director at [facility] where his relative works (I think granddaughter). He voiced understanding that he is leaving AGAINST MEDICAL ADVICE may result in significant morbidity/disability and potentially mortality but he is adamant that he is going home. His also did not succeed in making patient stay. He agreed to provide pharmacy and agreed to roller picker medications we will prescribe for him to take. I have told him to follow-up with primary care physician and laboratory director as soon as possible. I have requested lab work with results sent to primary care physician and Dr. Wright in case if he chooses not to be seen in the hospital to make sure his electrolytes within normal limits. I have told the patient that we absolutely need to make sure his kidney function and electrolytes within normal limits since we are changing his medications. He voiced understanding. Patient told me that he previously was on Plavix but self discontinued. He also told me that Lasix does not really work and I suspect that patient was not very compliant with his medications. We have discussed that changing to different diuretic definitely can be considered but he will need to comply with treatment and follow recommendations of physician. I have discussed regarding importance of medical compliance during my morning evaluation and this afternoon but unfortunately patient told me that he is leaving AGAINST MEDICAL ADVICE whether we want it or not. I have discussed with Dr. Wright who is aware that patient is leaving AMA. Dr. Wright recommended to increase Lasix to 80 mg twice daily and to have patient on aspirin and Plavix as well as follow-up with him early as possible if patient chooses not to go to the hospital. Physical Exam Narrative: EXAM NARRATIVE: Exam as per my note earlier. Discharge Data Data Completed and Pending: Completed Studies During Hospitalization Category Date Time Status XR chest 1V pola ble [id number] Urgent Exams 01/02/21 21:11 Completed CV echo complete* [id number] Routine Ultrasound 01/03/21 01:30 Completed Pending at discharge Category Date Time Status PTT [Partial Thro mboplastin Time] T imed Lab 01/03/21 15:45 Ordered Labs from last 24 hours 01/03/21 01/03/21 01/03/21 03:25 03:25 03:25 WBC 8.3 RBC 4.33 Hgb 12.6 Hct 39.6 L MCV 91.5 MCH 29.1 MCHC 31.8 RDW 15.9 H Plt Count 241 MPV 10.2 Neut % (Auto) 93.4 Lymph % (Auto) 4.1 [place] % (Auto) 1.7 Eos % (Auto) 0.0 Baso % (Auto) 0.1 Neut # (Auto) 7.75 H Lymph # (Auto) 0.3 L [place] # (Auto) 0.1 L Eos # (Auto) 0.0 Baso # (Auto) 0.0 Nucleated RBC % (a uto) 0 Nucleated RBCs # 0.0 APTT 35.9 Specimen Type Sample Site ABG pH ABG pCO2 ABG pO2 ABG HCO3 ABG Base Excess Jonas Test Hematocrit O2 Delivery Device O2 Liters/Min [employer] Representative ID Sodium 139 Potassium 3.3 L Chloride 100 Carbon Dioxide 27 Anion Gap 15.3 BUN 36 H Creatinine 2.2 H GFR Calculation Not Reportable Glucose 159 H Calculated Osmolal ity 300 H Calcium 9.5 Phosphorus 3.5 Magnesium 2.7 H Total Bilirubin AST ALT Alkaline Phosphata se Troponin T Baselin e Troponin T 120 Min yurok Delta Troponin T Troponin T Hi Sens 6Hr Troponin T Hi Sens 6Hr Delta NT-Pro-B Natriuret Pep Total Protein Albumin Globulin TSH 0.68 SARS-CoV-2 Ag (Rap id) 01/03/21 01/02/21 01/02/21 03:25 23:13 21:59 WBC RBC Hgb Hct MCV MCH MCHC RDW Plt Count MPV Neut % (Auto) Lymph % (Auto) [place] % (Auto) Eos % (Auto) Baso % (Auto) Neut # (Auto) Lymph # (Auto) [place] # (Auto) Eos # (Auto) Baso # (Auto) Nucleated RBC % (a uto) Nucleated RBCs # APTT Specimen Type Sample Site ABG pH ABG pCO2 ABG pO2 ABG HCO3 ABG Base Excess Jonas Test Hematocrit O2 Delivery Device O2 Liters/Min [employer] Representative ID Sodium Potassium Chloride Carbon Dioxide Anion Gap BUN Creatinine GFR Calculation Glucose Calculated Osmolal ity Calcium Phosphorus Magnesium Total Bilirubin AST ALT Alkaline Phosphata se Troponin T Baselin e Troponin T 120 Min yurok 127.4 H Delta Troponin T 28.4 H* Troponin T Hi Sens 6Hr 168.5 H Troponin T Hi Sens 6Hr Delta 69.5 H* NT-Pro-B Natriuret Pep Total Protein Albumin Globulin TSH SARS-CoV-2 Ag (Rap id) Negative 01/02/21 01/02/21 01/02/21 21:30 21:30 21:30 WBC 13.1 H RBC 4.47 Hgb 13.2 Hct 40.9 L MCV 91.5 MCH 29.5 MCHC 32.3 RDW 15.9 H Plt Count 260 MPV 10.3 Neut % (Auto) 90.7 Lymph % (Auto) 3.0 [place] % (Auto) 4.8 Eos % (Auto) 0.0 Baso % (Auto) 0.4 Neut # (Auto) 11.86 H Lymph # (Auto) 0.4 L [place] # (Auto) 0.6 Eos # (Auto) 0.0 Baso # (Auto) 0.1 Nucleated RBC % (a uto) 0 Nucleated RBCs # 0.0 APTT Specimen Type Sample Site ABG pH ABG pCO2 ABG pO2 ABG HCO3 ABG Base Excess Jonas Test Hematocrit O2 Delivery Device O2 Liters/Min [employer] Representative ID Sodium 138 Potassium 3.6 Chloride 99 Carbon Dioxide 26 Anion Gap 16.6 BUN 34 H Creatinine 2.3 H GFR Calculation Not Reportable Glucose 134 H Calculated Osmolal ity 296 H Calcium 10.0 Phosphorus Magnesium Total Bilirubin 1.3 H AST 17 ALT 13 Alkaline Phosphata se 39 L Troponin T Baselin e 99 H Troponin T 120 Min yurok Delta Troponin T Troponin T Hi Sens 6Hr Troponin T Hi Sens 6Hr Delta NT-Pro-B Natriuret Pep 58771 H Total Protein 7.6 Albumin 3.9 Globulin 3.7 TSH SARS-CoV-2 Ag (Rap id) 01/02/21 21:20 WBC RBC Hgb Hct MCV MCH MCHC RDW Plt Count MPV Neut % (Auto) Lymph % (Auto) [place] % (Auto) Eos % (Auto) Baso % (Auto) Neut # (Auto) Lymph # (Auto) [place] # (Auto) Eos # (Auto) Baso # (Auto) Nucleated RBC % (a uto) Nucleated RBCs # APTT Specimen Type Arterial Sample Site Radial, right ABG pH 7.38 ABG pCO2 48.4 H ABG pO2 80.2 ABG HCO3 28.3 H ABG Base Excess 2.3 H Jonas Test Pos Hematocrit 42.7 O2 Delivery Device Nc O2 Liters/Min 4.0 Veterans Employment Representative ID Harkr Sodium Potassium Chloride Carbon Dioxide Anion Gap BUN Creatinine GFR Calculation Glucose Calculated Osmolal ity Calcium Phosphorus Magnesium Total Bilirubin AST ALT Alkaline Phosphata se Troponin T Baselin e Troponin T 120 Min yurok Delta Troponin T Troponin T Hi Sens 6Hr Troponin T Hi Sens 6Hr Delta NT-Pro-B Natriuret Pep Total Protein Albumin Globulin TSH SARS-CoV-2 Ag (Rap id) Vitals: Last Vital Signs Temp 98.5 F 01/03/21 13:03 Pulse 62 01/03/21 13:03 Resp 18 01/03/21 13:03 BP 162/71 01/03/21 13:03 Pulse Ox 95 01/03/21 13:03 Discharge Plan Discharge Patient Disposition: Left Against Medical Advice Condition: Stable Prescriptions: New aspirin 81 mg tablet,delayed release (DR/EC) 81 mg PO DAILY Qty: 30 RF: 0 potassium chloride [Klor-Con M20] 20 mEq tablet,ER particles/crystals 20 meq PO BID Qty: 20 RF: 0 clopidogrel [Plavix] 75 mg tablet 75 mg PO DAILY Qty: 30 RF: 0 Changed furosemide 40 mg tablet 80 mg PO BID Qty: 60 RF: 2 No Action nitroglycerin [Nitrostat] 0.4 mg tablet, sublingual 0.4 mg SUBLINGUAL Q5M PRN (Reason: chest pain) Qty: 25 RF: 5 amlodipine [Norvasc] 10 mg tablet 10 mg PO DAILY Qty: 30 RF: 2 budesonide-formoterol [Symbicort] 160-4.5 mcg/actuation HFA aerosol inhaler 2 puff INHALATION Q12H Qty: 10.2 RF: 2 fenofibrate nanocrystallized [Tricor] 145 mg tablet 145 mg PO DAILY Qty: 30 RF: 2 hydralazine 50 mg tablet 50 mg PO TID Qty: 90 RF: 2 isosorbide mononitrate 60 mg tablet extended release 24 hr 60 mg PO BID Qty: 60 RF: 2 Tradjenta 5 mg tablet 5 mg PO DAILY Qty: 30 RF: 2 metoprolol tartrate 75 mg tablet 75 mg PO BID Qty: 60 RF: 2 famotidine [Pepcid] 40 mg tablet 40 mg PO BID Qty: 180 RF: 0 cholecalciferol (vitamin D3) 125 mcg (5,000 unit) capsule 125 mcg PO DAILY Qty: 90 RF: 0 metolazone 2.5 mg tablet 2.5 mg PO DAILY PRN (Reason: edema) Qty: 14 RF: 0 Discharge Orders: Discharge Order (Routine); Ordered 01/03/21 Ordered By: Antoni Rivera Other Ambulatory Orders: Comprehensive Metabolic Panel (Routine) Timeframe: 20210107 Facility: [facility] - Location: Lab - Main Lab Ordered By: Antoni Rivera Referrals: Glenys Portillo FNP-C [Primary Care Provider] - Igor Wright M.D [Physician] - 1-3 days Discharge Diet: As Directed Discharge Activity: Limit activity as instructed Activity Restrictions/Additional Instructions: Please follow-up with your primary care physician earliest possible and present back to ER if your condition worsens or you develop chest pain, lightheadedness, fatigue or see blood in your stool or black stool. Please note that you have a very high chance of heart failure and have repeat myocardial infarction which could be massive potentially predisposing you to severe morbidity/disability and possibly mortality as we have discussed. I again would like to mention that I recommend you to reconsider and present b ack to the hospital earliest possible. Please note that I am requesting a lab work to make sure your electrolytes within normal limits in case if you decide not to seek any medical attention in hospitals. Please follow-up with Dr. Wright at cardiology clinic earliest possible. Discharge Attestations Time Spent in Discharge Care*: greater than 30 min Quality Metrics Clinical Quality Measures During this hospital stay, did patient experience: AMI Clinical Trial Participant: No Contraindication to aspirin (AMI): Aspirin given Contraindication to statin: Statin prescribed Coding Level of Care Code Acute Dementia Program Director for g Fwd Diagnoses Acute exacerbation of CHF (congestive heart failure) I50.9 Pulmonary edema J81.1 Chronic kidney disease, stage III (moderate) N18.30 COPD (chronic obstructive pulmonary disease) J43.1 COPD type: emphysema Emphysema type: panlobular Type 2 diabetes mellitus E11.65 Diabetes mellitus correction insulin use: without correction use Diabetes mellitus complication status: with hyperglycemia Non-ST elevation DC (NSTEMI) I21.4
--- NOTE | 2021-01-04 16:01 | PC.RESP ---
Smoking Cessation information sent to patient.
== END 2021-01-03 13:17 | disposition left against medical advice (07) | DRG 280 ==
LOC: ER 23:09 → MEDSURG 23:56
PROVIDERS: Admitting Provider Internal Medicine; Emergency Provider Emergency Medicine; PCP Nurse Practitioner; Visit Provider Internal Medicine
DX: I21.4 Non-ST elevation (NSTEMI) myocardial infarction (principal); I50.43 Acute on chronic combined systolic (congestive) and diastolic (congestive) heart failure; I13.0 Hypertensive heart and chronic kidney disease with heart failure and stage 1 through stage 4 chronic kidney disease, or unspecified chronic kidney disease; N18.30 Chronic kidney disease, stage 3 unspecified; E11.22 Type 2 diabetes mellitus with diabetic chronic kidney disease; I25.10 Atherosclerotic heart disease of native coronary artery without angina pectoris; Z95.1 Presence of aortocoronary bypass graft; I35.0 Nonrheumatic aortic (valve) stenosis; J43.1 Panlobular emphysema; E78.5 Hyperlipidemia, unspecified; F17.210 Nicotine dependence, cigarettes, uncomplicated; E55.9 Vitamin D deficiency, unspecified; E11.51 Type 2 diabetes mellitus with diabetic peripheral angiopathy without gangrene; Z91.19 Patient's noncompliance with other medical treatment and regimen; Z53.29 Procedure and treatment not carried out because of patient's decision for other reasons
CPT/HCPCS: 12345; 36415; 71045; 80048; 80053; 82803; 83735; 83880; 84100; 84443; 84484; 85025; 85730; 87426; 93005; 93306; 96372; 99282; J1644; J1940; J3490

== ENCOUNTER 2021-01-04 13:28 | Inpatient (IN) | payer MEDICARE, SELFPAY ==
[2021-01-04] VITALS (14 sets, daily range): BP systolic 160–195; BP diastolic 65–99; PULSE 52–78; RESP 16–24; TEMP 36.4–36.5; O2SAT 90–96; BMI 27.4
--- NOTE | 2021-01-04 13:39 | XR_ITS ---
WS: [id number] Portable AP upright chest, 01/04/2021 Clinical Data: CP Comparison: Portable chest, 01/02/2021. Findings: The heart remains enlarged. Bilateral pulmonary opacities are present which probably repres ent pulmonary edema although pneumonia could be present. No nodules or masses are seen. Midline aguirre otomy sutures are present. There is a monitor lead on the chest wall. The aortic arch and descending aorta are tortuous. XR/XR chest 1V portable [id number] Impression: 1. Cardiomegaly with probable pulmonary vascular congestion. 2. Atherosclerosis.
--- NOTE | 2021-01-04 13:39 | ECG_ITS ---
[facility] Test Date: 2021-01-04 Pat Name: Zak Gibbs Department: Room: Gender: Male Rhinologist: : 1945 Requested By: Ebony Campbell I Order Number: [id number] Ottoniel MD: Igor Wright M.D. Measurements Intervals [place] Rate: 56 P: 72 WA: 229 QRS: -44 QRSD: 169 T: 113 QT: 478 QTc: 464 Interpretive Statements SINUS BRADYCARDIA WITH FIRST DEGREE AV BLOCK LEFT AXIS DEVIATION [QRS AXIS < -30] INTRAVENTRICULAR CONDUCTION DELAY [130+ ms QRS DURATION] LATERAL MYOCARDIAL INFARCTION , OF INDETERMINATE AGE [40+ ms Q WAVE AND/OR ST/T ABNORMALITY IN I/aVL/V5/V6] Compared to ECG 01/03/2021 03:10:28 Sinus rhythm no longer present Myocardial infarct finding still present Electronically Signed On 01-05-2021 10:55:10 DATA CODER OPERATOR by Igor Wright M.D. [id number]
[2021-01-04 13:57] LABS: Basophils % 0.2 %; Eosinophils % 0.1 %; Hematocrit 41.9 % (42.0-52.0); Hemoglobin 13.5 g/dL (11.7-16.6); Lymphocytes # 1.2 10^3/uL (0.8-4.8); Lymphocytes % 10.5 %; Mean Corpuscular HGB Conc 32.2 g/dL (30.0-36.0); Mean Corpuscular Hemoglobin 29.2 pg (28.0-34.0); Mean Corpuscular Volume 90.5 fL (80-94); Mean Platelet Volume 10.1 fL (7.4-10.4); Monocytes % 8.8 %; Neutrophils # 8.73 10^3/uL (1.8-7.7); Neutrophils % 79.5 %; Nucleated Red Blood Cells % 0 %; Platelet Count 303 10^3/cmm (130-400); Red Blood Count 4.63 10^6/uL (4.1-5.3); Red Cell Distribution Width 15.7 % (12.1-15.1)
[2021-01-04] MEDS: nitroglycerin 1 gm/inch oint Pkt 1 INCH TOPICAL (13:59)
[2021-01-04] MEDS: aspirin 81 mg Chew Tablet 243 MG PO (13:59)
[2021-01-04 14:07] LABS: INR 1.06 (0.8-1.2)
[2021-01-04 14:11] LABS: Lactic Sepsis W/Reflex 1.5 mmol/L (0.5-2.2)
--- NOTE | 2021-01-04 14:16 | W.ED.CHESTPA ---
HPI - Chest Pain General: Chief Complaint: Chest Pain Stated Complaint: Suspects heart attack Time Seen by Provider: 01/04/21 13:32 Source: patient and family () Limitations: no limitations History of Present Illness: HPI narrative: Patient was on admission at this facility for a non-STEMI and CHF exacerbation and his left AGAINST MEDICAL ADVICE yesterday. When asked him why he left he states that he did not like the nurses that was on the floor that he was on, and that they were rude to him. He also states that the transport conductor that he saw was rude to him which is why he left AMA. Developed chest pain earlier today and has gradually worsened. Pertinent past history: coronary artery disease, prior VA and CABG Onset (ago): hour(s) (3) Timing of current episode: episodic Prior episodes: Yes Onset: during rest Pain location: left chest Pain radiation: right arm Severity: moderate Quality: sharp Relieving factors: nitroglycerin Exacerbating factors: nothing Associated symptoms: Reports nausea; Deny abdominal pain, diaphoresis, dyspnea, fever(s), leg edema, palpitations, sense of impending doom, syncope or vomiting Treatment prior to arrival: aspirin and nitroglycerin Review of Systems General: Reports: 10 or more systems reviewed and unremarkable except in HPI and below Const: Denies: fever(s) or diaphoresis Eyes: Denies: change in vision or blurry vision ENMT: Denies: throat pain, enlarged tonsils, odynophagia, hoarseness, mouth pain or swelling of lips/tongue Card: Denies: palpitations or syncope Resp: Denies: dyspnea GI: Reports: nausea; Denies: abdominal pain or vomiting : Denies: flank pain, dysuria, urinary frequency, urinary urgency or urinary hesitancy Musc: Denies: neck pain, back pain or extremity swelling Skin/Breast: Denies: rash, pruritus or erythema Neuro: Denies: headache(s), numbness in extremities or weakness in extremities Endo: Denies: polyuria, polydipsia or tired all the time PFS ED PFSH: Medical History Abdominal aortic aneurysm (AAA) Aortic stenosis, mild Carotid stenosis CHF (congestive heart failure) CKD (chronic kidney disease) COPD (chronic obstructive pulmonary disease) Dyslipidemia History of stent insertion of renal artery Hypertension Occlusion of right internal carotid artery Pulmonary emphysema Renal artery stenosis Tobacco abuse Type 2 diabetes mellitus Vitamin D deficiency Surgical History Aortocoronary bypass status History of carotid artery stenosis History of colon cancer 2014 History of endovascular stent graft for abdominal aortic aneurysm (AAA) History of fracture of right shoulder 3 times surgery- bone repair with screws and anchor History of procedure for peripheral vascular disease Right leg Hx of primary malignant neoplasm of urinary bladder Status post four vessel coronary artery bypass (~02/2014) Family History Family/Other Diabetes Hypertension CAD (coronary artery disease) Social History Smoking and tobacco status: current every day smoker Second hand smoke exposure: Yes Smoking risk assessment/counseling performed?: Yes Alcohol intake: current Desire information about alcohol rehabilitation?: No Counseling given: No Desire information about substance/drug rehabilitation?: No Counseling given: No Adopted: No Caregiver/support person: No Lives independently: Yes Household members: spouse Housing: House Marital status: service: No Current occupational status: retired History of recent travel: No Current gender identity: Male Physical Exam Const: COMMON NORMALS: no acute distress, average body habitus, patient oriented x3, no limitations, healthy appearing, alert and well nourished HENMT: COMMON NORMALS: normocephalic, atraumatic and moist oral mucous membranes HEAD & SCALP: normocephalic and atraumatic Neck/C-Spine: COMMON NORMALS: no meningeal signs and no JVD Chest: COMMONS NORMALS: normal inspection of the chest and normal palpation of entire chest wall Resp: COMMON NORMALS: normal respiratory effort, No retractions, No use of accessory muscles, clear to auscultation bilaterally and percussion normal AUSCULTATION: clear to auscultation bilaterally PERCUSSION: percussion normal Cardio: COMMON NORMALS: no JVD, regular rate, regular rhythm, S1 normal heart sound present, S2 normal heart sound present, No gallops present (Cardio), No clicks present (Cardio), No murmurs present (Cardio), No rub (Cardio) and Peripheral pulses 2+ throughout RATE: regular rate RHYTHM: regular rhythm HEART SOUNDS: S1 normal heart sound present and S2 normal heart sound present PERIPHERAL PULSES: Peripheral pulses 2+ throughout GI: COMMON NORMALS: Normal to inspection, nondistended, normoactive bowel sounds present, Soft to palpation, non-tender, No hepatosplenomegaly present, no masses and no bruits PALPATION: Yes Soft to palpation and Yes No hepatosplenomegaly present Extremity: COMMON NORMALS: normal to inspection, full ROM, capillary refill normal, no calf tenderness and no pedal edema Neuro: COMMON NORMALS: patient oriented x3 SENSORIUM/ORIENTATION: Yes alert MENINGEAL SIGNS: Yes no meningeal signs Skin: COMMON NORMALS: no rashes or lesions noted, no wounds, turgor normal, no jaundice, no petechiae and no mottling GENERAL SKIN EXAM: no rashes or lesions noted and turgor normal Course Reevaluation(s): Reevaluation #1: Discussed his initial troponin with the patient and his , discussed that compared to his labs that he had 2 days ago this is a significant increase in the troponin. Advised that he may have had an VA and will need to be admitted to the hospital for management. I discussed the fact that he left AGAINST MEDICAL ADVICE yesterday and asked if he wanted to be transferred to another facility. He states that he wants to be treated here however he would like to be admitted to a different floor and have a different transport conductor. The transport conductor he saw during admission was Dr. Mcneal and one marketing information analyst today is Dr. Siddiqui. Time: 14:35 Consultations: Consultation #1: Placed a call to Dr. Siddiqui, transport conductor marketing information analyst to discuss the patient with him. He is in a complex procedure and he said he will call me back when he is done. Time: 14:28 Consultation #2: Discussed the patient with Dr. Bowman, hospitalist. He kindly accepted the patient to his service but would like the patient to be evaluated by cardiology also. Also since the patient left AGAINST MEDICAL ADVICE yesterday we need to find out if the patient wants to be treated here. Time: 14:31 Vital Signs: Vital signs: Vital Signs Temperature 97.6 F 01/04/21 19:23 Pulse Rate 65 01/04/21 23:58 Respiratory Rate 16 01/04/21 23:58 Blood Pressure 167/74 01/04/21 23:58 Pulse Oximetry 96 01/04/21 23:58 MDM - Chest Pain MDM Narrative: Medical decision making narrative: 76-year-old male with clinical features consistent with a non-STEMI and a CHF exacerbation. He had left the facility AGAINST MEDICAL ADVICE yesterday because he was apparently not satisfied with the care that he had received. He however was willing to be admitted today. In the emergency department he received a dose of Lovenox and furosemide. He is admitted for further evaluation and management. Medical Records: Attestation: I reviewed the patient's medical records. Lab Data: Attestation: I reviewed the patient's lab results. Labs: Lab Results 01/04/21 01/04/21 01/04/21 Range/Units 13:40 13:40 13:40 WBC 11.0 H (4.0-10.0) 10^3/ uL RBC 4.63 (4.1-5.3) 10^6/u L Hgb 13.5 (11.7-16.6) g/dL Hct 41.9 L (42.0-52.0) % MCV 90.5 (80-94) fL MCH 29.2 (28.0-34.0) pg MCHC 32.2 (30.0-36.0) g/dL RDW 15.7 H (12.1-15.1) % Plt Count 303 (130-400) 10^3/c mm MPV 10.1 (7.4-10.4) fL Neut % (Auto) 79.5 % Lymph % (Auto) 10.5 % [facility] % (Auto) 8.8 % Eos % (Auto) 0.1 % Baso % (Auto) 0.2 % Neut # (Auto) 8.73 H (1.8-7.7) 10^3/u L Lymph # (Auto) 1.2 (0.8-4.8) 10^3/u L [facility] [place] # (Auto) 1.0 H (0.2-0.9) 10^3/u L Eos # (Auto) 0.0 (0.0-0.8) 10^3/u L Baso # (Auto) 0.0 (0.0-0.1) 10^3/u L Nucleated RBC % (a uto) 0 % Nucleated RBCs # 0.0 /100WBC PT 14.20 (12.1-14.9) SECO NDS INR 1.06 (0.8-1.2) D-Dimer 4.26 H (0-0.59) ug/mIFE U Sodium 136 (136-145) mmol/L Potassium 3.4 L (3.5-5.1) mmol/L Chloride 93 L (98-107) mmol/L Carbon Dioxide 28 (22-29) mmol/L Anion Gap 18.4 (5-19) BUN 52 H (8-23) mg/dL Creatinine 2.2 H (0.7-1.2) mg/dL GFR Calculation Not Reportable Glucose 105 (65-115) mg/dL Calculated Osmolal ity 296 H (285-295) mOsm/k g Lactic Acid (0.5-2.2) mmol/L Calcium 10.7 H (8.5-10.5) mg/dL Total Bilirubin 1.0 (0.15-1.2) mg/dL AST 31 (0-40) U/L ALT 16 (0-41) U/L Alkaline Phosphata se 40 (40-130) IU/L Troponin T Baselin e (0-15) ng/L Troponin T 120 Min [place] (0-15) ng/L Delta Troponin T (0-10) ABS# C-Reactive Protein 104.5 H (0.0-4.9) mg/L NT-Pro-B Natriuret Pep 37399 H (0-450) pg/mL Total Protein 8.1 (6.6-8.7) g/dL Albumin 4.0 (3.5-5.2) g/dL Globulin 4.1 (1.3-4.6) g/dL Lipase 79 H (13-60) U/L Procalcitonin 0.22 (0-0.5) ng/mL Influenza Type A A g (Negative) Influenza Type B A g (Negative) SARS-CoV-2 Ag (Rap id) (Negative) 01/04/21 01/04/21 01/04/21 Range/Units 13:40 13:40 14:00 WBC (4.0-10.0) 10^3/ uL RBC (4.1-5.3) 10^6/u L Hgb (11.7-16.6) g/dL Hct (42.0-52.0) % MCV (80-94) fL MCH (28.0-34.0) pg MCHC (30.0-36.0) g/dL RDW (12.1-15.1) % Plt Count (130-400) 10^3/c mm MPV (7.4-10.4) fL Neut % (Auto) % Lymph % (Auto) % [facility] % (Auto) % Eos % (Auto) % Baso % (Auto) % Neut # (Auto) (1.8-7.7) 10^3/u L Lymph # (Auto) (0.8-4.8) 10^3/u L [facility] [place] # (Auto) (0.2-0.9) 10^3/u L Eos # (Auto) (0.0-0.8) 10^3/u L Baso # (Auto) (0.0-0.1) 10^3/u L Nucleated RBC % (a uto) % Nucleated RBCs # /100WBC PT (12.1-14.9) SECO NDS INR (0.8-1.2) D-Dimer (0-0.59) ug/mIFE U Sodium (136-145) mmol/L Potassium (3.5-5.1) mmol/L Chloride (98-107) mmol/L Carbon Dioxide (22-29) mmol/L Anion Gap (5-19) BUN (8-23) mg/dL Creatinine (0.7-1.2) mg/dL GFR Calculation Glucose (65-115) mg/dL Calculated Osmolal ity (285-295) mOsm/k g Lactic Acid 1.5 (0.5-2.2) mmol/L Calcium (8.5-10.5) mg/dL Total Bilirubin (0.15-1.2) mg/dL AST (0-40) U/L ALT (0-41) U/L Alkaline Phosphata se (40-130) IU/L Troponin T Baselin e 416 H* (0-15) ng/L Troponin T 120 Min [place] (0-15) ng/L Delta Troponin T (0-10) ABS# C-Reactive Protein (0.0-4.9) mg/L NT-Pro-B Natriuret Pep (0-450) pg/mL Total Protein (6.6-8.7) g/dL Albumin (3.5-5.2) g/dL Globulin (1.3-4.6) g/dL Lipase (13-60) U/L Procalcitonin (0-0.5) ng/mL Influenza Type A A g Negative (Negative) Influenza Type B A g Negative (Negative) SARS-CoV-2 Ag (Rap id) (Negative) 01/04/21 01/04/21 Range/Units 14:00 15:22 WBC (4.0-10.0) 10^3/ uL RBC (4.1-5.3) 10^6/u L Hgb (11.7-16.6) g/dL Hct (42.0-52.0) % MCV (80-94) fL MCH (28.0-34.0) pg MCHC (30.0-36.0) g/dL RDW (12.1-15.1) % Plt Count (130-400) 10^3/c mm MPV (7.4-10.4) fL Neut % (Auto) % Lymph % (Auto) % [facility] [place] % (Auto) % Eos % (Auto) % Baso % (Auto) % Neut # (Auto) (1.8-7.7) 10^3/u L Lymph # (Auto) (0.8-4.8) 10^3/u L [facility] [place] # (Auto) (0.2-0.9) 10^3/u L Eos # (Auto) (0.0-0.8) 10^3/u L Baso # (Auto) (0.0-0.1) 10^3/u L Nucleated RBC % (a uto) % Nucleated RBCs # /100WBC PT (12.1-14.9) SECO NDS INR (0.8-1.2) D-Dimer (0-0.59) ug/mIFE U Sodium (136-145) mmol/L Potassium (3.5-5.1) mmol/L Chloride (98-107) mmol/L Carbon Dioxide (22-29) mmol/L Anion Gap (5-19) BUN (8-23) mg/dL Creatinine (0.7-1.2) mg/dL GFR Calculation Glucose (65-115) mg/dL Calculated Osmolal ity (285-295) mOsm/k g Lactic Acid (0.5-2.2) mmol/L Calcium (8.5-10.5) mg/dL Total Bilirubin (0.15-1.2) mg/dL AST (0-40) U/L ALT (0-41) U/L Alkaline Phosphata se (40-130) IU/L Troponin T Baselin e (0-15) ng/L Troponin T 120 Min [place] 411.4 H (0-15) ng/L Delta Troponin T -4.6 L (0-10) ABS# C-Reactive Protein (0.0-4.9) mg/L NT-Pro-B Natriuret Pep (0-450) pg/mL Total Protein (6.6-8.7) g/dL Albumin (3.5-5.2) g/dL Globulin (1.3-4.6) g/dL Lipase (13-60) U/L Procalcitonin (0-0.5) ng/mL Influenza Type A A g (Negative) Influenza Type B A g (Negative) SARS-CoV-2 Ag (Rap id) Negative (Negative) Imaging Data^: CXR: Attestation: I personally reviewed and interpreted this imaging study as follows: Radiologist's impression: [address] [address] XRay Report Signed Patient: Zak Gibbs #: [id number] : 5Acct#:[id number] Age/Sex: 76 / MADM Date: 01/04/21 Loc: [facility]/Bed: Attending Dr: Ordering Provider/Ordering MD: Ebony Campbell MD, [facility] [place] of Service: 01/04/21 Procedure(s): XR chest 1V portable [id number] Accession Number(s): [id number] Report Number: [id number] WS: [id number] Portable AP upright chest, 01/04/2021 Clinical Data: CP Comparison: Portable chest, 01/02/2021. Findings: The heart remains enlarged. Bilateral pulmonary opacities are present which probably represent pulmonary edema although pneumonia could be present. No nodules or masses are seen. Midline sternotomy sutures are present. There is a monitor lead on the chest wall. The aortic arch and descending aorta are tortuous. XR/XR chest 1V portable [id number] Impression: 1. Cardiomegaly with probable pulmonary vascular congestion. 2. Atherosclerosis. Dictated By:Kerry Abebe MD Signed By:Kerry Abebe MDSigned Date/Time:01/04/21 1354 DD/ 1352 Other Imaging: Attestation: I personally reviewed and interpreted this imaging study as follows: Radiologist's impression: [address] [address] Nuclear Medicine Report Signed Patient: Zak Gibbs #: [id number] : 5Acct#:[id number] Age/Sex: 76 / MADM Date: 01/04/21 Loc: [place]/Bed: [facility] Attending Dr: Jhonathan Bowman MD Ordering Provider/Ordering MD: Ebony Campbell MD, [facility] [place] Date of Service: 01/04/21 Procedure(s): NM pul vent and perfus* [id number] Accession Number(s): [id number] Report Number: [id number] PROCEDURE INFORMATION: Exam: NM Lung Ventilation and Perfusion Imaging Exam date and time: 01/04/2021 4:12 PM Age: 76 years old Clinical indication: Shortness of breath; Prior surgery; Surgery date: 6+ months; Surgery type: Cabg x 2; Additional info: SOB, elevated d-dimer, copd TECHNIQUE: Imaging protocol: Nuclear pulmonary ventilation with aerosol or gas was performed followed by perfusion. Views: Ventilation acquired with multiple projections. Perfusion acquired with multiple projections. Total images: 2 Radiopharmaceutical: 5.1 mCi Tc-99m MAA (Macroaggregated Albumin), IV. 30.1 mCi Tc-99m DTPA (DTPA Aerosol), Inhalation. COMPARISON: CR XR chest 1V portable [id number] 01/04/2021 1:40 PM FINDINGS: Ventilation: Speckled heterogenous ventilation aerosol tracer activity consistent with the patient's chronic lung disease and pulmonary fibrosis. Perfusion: No perfusion defect. NM/NM pul vent and perfus* [id number] IMPRESSION: Low probability for pulmonary embolism. Dictated By:Gulshan Allen Signed By:Gulshan AllenSisowmya Date/Time:01/04/211756 DD/ 55 EKG Data^: EKG 1: Attestation: I personally reviewed and interpreted this EKG as follows: EKG interpretation date: 01/04/21 EKG interpretation time: 13:34 Prior EKG tracings: available for review Interpretation: Sinus bradycardia with first-degree AV block. Heart rate 56 bpm. Left axis deviation. Intraventricular conduction delay. No ST changes. EKG 2: Attestation: I personally reviewed and interpreted this EKG as follows: EKG interpretation date: 01/04/21 EKG interpretation time: 16:13 Prior EKG tracings: available for review Interpretation: Sinus bradycardia. Heart rate 49 bpm. Left axis deviation. Intraventricular conduction delay. No ST changes. No significant change from earlier Discharge Plan Discharge Patient Disposition: Admitted As Inpatient Admit Provider: Jhonathan Bowman Clinical Impression: Non-ST elevation VA (NSTEMI), CHF (congestive heart failure) Condition: Stable Coding Level of Care Code ED Breaker Oiler for Chg Fwd Exam Comprehensive
[2021-01-04 14:17] LABS: D Dimer 4.26 ug/mIFEU (0-0.59)
[2021-01-04 14:22] LABS: NT Pro B Type Natriuretic Pept 21709 pg/mL (0-450); Procalcitonin 0.22 ng/mL (0-0.5)
[2021-01-04 14:24] LABS: Troponin(5th) Baseline 416 ng/L (0-15)
[2021-01-04 14:29] LABS: Influenza A by IFA Negative (Negative); Influenza B by IFA Negative (Negative); SARS Covid-2 Antigen Negative (Negative)
[2021-01-04 14:34] LABS: Alanine Aminotransferase 16 U/L (0-41); Alkaline Phosphatase 40 IU/L (40-130); Anion Gap 18.4 (5-19); Aspartate Amino Transferase 31 U/L (0-40); Carbon Dioxide 28 mmol/L (22-29); Globulin 4.1 g/dL (1.3-4.6); Glucose 105 mg/dL (65-115); Sodium 136 mmol/L (136-145); Total Protein 8.1 g/dL (6.6-8.7)
[2021-01-04 14:51] LABS: Blood Urea Nitrogen 52 mg/dL (8-23); Calcium 10.7 mg/dL (8.5-10.5); Chloride 93 mmol/L (98-107); Osmolality Calculated 296 mOsm/kg (285-295); Potassium 3.4 mmol/L (3.5-5.1)
[2021-01-04 14:52] LABS: C Reactive Protein 104.5 mg/L (0.0-4.9); Lipase 79 U/L (13-60)
--- NOTE | 2021-01-04 15:39 | ECG_ITS ---
[facility] Test Date: 2021-01-04 Pat Name: Zak Gibbs Department: Room: Gender: Male Hand Tube Bender: : 1945 Requested By: Ebony Campbell I Order Number: [id number] Ottoniel MD: Igor Wright M.D. Measurements Intervals Sharon Rate: 49 P: 90 ME: 221 QRS: -42 QRSD: 182 T: 117 QT: 512 QTc: 463 Interpretive Statements SINUS BRADYCARDIA WITH FIRST DEGREE AV BLOCK LEFT AXIS DEVIATION [QRS AXIS < -30] INTRAVENTRICULAR CONDUCTION DELAY [130+ ms QRS DURATION] Compared to ECG 01/04/2021 13:34:16 No significant changes Electronically Signed On 01-05-2021 11:08:12 SALON MANAGER by Igor Wright M.D. [id number]
--- NOTE | 2021-01-04 15:45 | NMR_ITS ---
PROCEDURE INFORMATION: Exam: NM Lung Ventilation and Perfusion Imaging Exam date and time: 01/04/2021 4:12 PM Age: 76 years old Clinical indication: Shortness of breath; Prior surgery; Surgery date: 6+ months; Surgery type: Cabg x 2; Additional info: SOB, elevated d-dimer, copd TECHNIQUE: Imaging protocol: Nuclear pulmonary ventilation with aerosol or gas was performed followed by perfusion. Views: Ventilation acquired with multiple projections. Perfusion acquired with multiple projections. Total images: 2 Radiopharmaceutical: 5.1 mCi Tc-99m MAA (Macroaggregated Albumin), IV. 30.1 mCi Tc-99m DTPA (DTPA Aerosol), Inhalation. COMPARISON: CR XR chest 1V portable [id number] 01/04/2021 1:40 PM FINDINGS: Ventilation: Speckled heterogenous ventilation aerosol tracer activity consistent with the patient's chronic lung disease and pulmonary fibrosis. Perfusion: No perfusion defect. NM/NM pul vent and perfus* [id number] IMPRESSION: Low probability for pulmonary embolism.
[2021-01-04] MEDS: enoxaparin 100 mg/mL Syringe SUBCUT (15:59)
[2021-01-04] MEDS: FUROsemide 10 mg/mL SDV 10mL 80 MG IVP (16:00)
[2021-01-04 16:07] LABS: Troponin 5 2HR 411.4 ng/L (0-15); Troponin 5 2HR Delta -4.6 ABS# (0-10)
--- NOTE | 2021-01-04 18:23 | P.HP_ITS ---
Providers/Chief Complaint Admitting Physician: Jhonathan Bowman Primary Care Provider: KASHMIR Krueger Chief Complaint: Suspects heart attack History of Present Illness 76-year-old gentleman with history of CAD, CABG, NSTEMI for which she was admitted and assessed on 01/02, leaving the hospital AGAINST MEDICAL ADVICE on 01/03 with intention of seeing a software quality assurance specialist at [facility]. He returned to ER today due to recurrent symptoms of chest pain. The pain is relieved by nitroglycerin. It is sharp. Central. Radiating to the arms. He is noted to have persistent elevation of troponin, currently higher at 416 at baseline. EKG with sinus bradycardia, first-degree block, LAD, Q waves noted in 1, aVL, poor R wave progression. During my visit he is currently chest pain-free, after pain was relieved by nitroglycerin patch. He is noted to have minimal leukocytosis of 11. He does report concomitant shortness of breath which has recently been getting worse. He is quite short of breath on exertion. Also reports PND. He has been having lower extremity edema. He denies that position changes improved symptoms of shortness of breath or chest pain. Chest x-ray with noted cardiomegaly with probable pulmonary vascular congestion, atherosclerosis. With noted D-dimer level of normal at 4.26, with chest pain, shortness of breath, he is additionally assessed by VQ scan which shows low probability for PE. Rapid COVID-19, influenza negative. Chronic any disease noted with creatinine of 2.2. NT proBNP evident at 21,709. Lipase minimally elevated at 79. Calcium minimally elevated 10.7 with albumin of 4. Procalcitonin 0.22. Per discussion of both ER physician myself with patient, he is currently agreeable to stay in the hospital for additional assessment and treatment. In ER he has received in addition to nitroglycerin a dose of Lasix 80 mg, a therapeutic dose of Lovenox and aspirin. He is currently feeling better. He is accompanied in ER by his . Review of Systems Const: Denies: fever(s), chills, body aches or malaise Eyes: Denies: change in vision or eye redness ENMT: Denies: throat pain, oral sores or ear or mastoid pain Card: Reports: chest pain, edema and dyspnea on exertion; Denies: pre-syncope Resp: Reports: dyspnea, productive cough and change in phlegm color; Denies: hemoptysis GI: Denies: abdominal pain, nausea, vomiting, diarrhea, constipation, hematochezia or melena : Denies: flank pain, difficulty urinating, urinary frequency or hematuria Musc: Denies: back pain, joint swelling or joint redness Skin/Breast: Denies: rash, sores or new lesions Neuro: Denies: headache(s), numbness in extremities, weakness in extremities, dizziness, confusion or seizure-like activity Endo: Denies: polyuria or polydipsia David/Lymph: Denies: easy bleeding or purpura All/Imm: Denies: urticaria, throat swelling or tongue swelling Medications/Allergies Home Medications Medication Instructions Recorded Confirmed Last Taken Type nitroglycerin 0.4 mg sublingual 0.4 mg SUBLINGUAL Q5M PRN #25 tab 02/02/20 01/04/21 01/04/21 Rx tablet amlodipine 10 mg tablet 10 mg PO DAILY #30 tab 10/17/20 01/04/21 01/04/21 Rx budesonide-formoterol HFA 160 2 puff INHALATION Q12H #10.2 gm 10/17/20 01/04/21 01/04/21 Rx mcg-4.5 mcg/actuation aerosol inhaler metolazone 2.5 mg tablet 2.5 mg PO DAILY PRN #14 tab 10/17/20 01/04/21 01/04/21 Rx Pepcid 40 mg PO BID@08,01/04/21 01/04/21 01/04/21 History Tricor 145 mg PO DAILY@01/04/21 01/04/21 01/03/21 History aspirin 81 mg PO DAILY@08 01/04/21 01/04/21 01/04/21 History cholecalciferol (vitamin D3) 125 mcg PO DAILY@1700 01/04/21 01/04/21 01/03/21 History furosemide 40 mg PO BID@08,17 01/04/21 01/04/21 01/04/21 History hydralazine 50 mg PO TID@08,15,18 01/04/21 01/04/21 01/04/21 History isosorbide mononitrate 60 mg PO BID@08,17 01/04/21 01/04/21 01/04/21 History metoprolol tartrate 75 mg PO Q12H 01/04/21 01/04/21 01/04/21 History Allergies Allergy/AdvReac Type Severity Reaction Status Date / Time morphine Allergy Unknown Verified 01/02/21 21:24 PFSH Acute PFSH: Medical History Abdominal aortic aneurysm (AAA) Aortic stenosis, mild Carotid stenosis CHF (congestive heart failure) CKD (chronic kidney disease) COPD (chronic obstructive pulmonary disease) Dyslipidemia History of stent insertion of renal artery Hypertension Occlusion of right internal carotid artery Pulmonary emphysema Renal artery stenosis Tobacco abuse Type 2 diabetes mellitus Vitamin D deficiency Surgical History Aortocoronary bypass status History of carotid artery stenosis History of colon cancer 2014 History of endovascular stent graft for abdominal aortic aneurysm (AAA) History of fracture of right shoulder 3 times surgery- bone repair with screws and anchor History of procedure for peripheral vascular disease Right leg Hx of primary malignant neoplasm of urinary bladder Status post four vessel coronary artery bypass (~02/2014) Family History Family/Other Diabetes Hypertension CAD (coronary artery disease) Social History Smoking and tobacco status: current every day smoker Second hand smoke exposure: Yes Smoking risk assessment/counseling performed?: Yes Alcohol intake: current Desire information about alcohol rehabilitation?: No Counseling given: No Desire information about substance/drug rehabilitation?: No Counseling given: No Adopted: No Caregiver/support person: No Lives independently: Yes Household members: spouse Housing: House Marital status: service: No Current occupational status: retired History of recent travel: No Current gender identity: Male Vitals/I&O/Wt Last Vital Signs Temp 97.7 F 01/04/21 13:38 Pulse 54 L 01/04/21 18:13 Resp 23 H 01/04/21 15:58 BP 195/82 01/04/21 18:13 Pulse Ox 90 01/04/21 18:13 Weight last 48 hrs Weight 97.069 kg Physical Exam Const: COMMON NORMALS: no acute distress and patient oriented x3 HENMT: COMMON NORMALS: oropharynx normal Neck/C-Spine: COMMON NORMALS: no JVD Chest: OTHER: Midline all sternotomy scar Resp: COMMON NORMALS: normal respiratory effort AUSCULTATION: diminished lung sounds Cardio: COMMON NORMALS: no JVD, regular rhythm, S1 normal heart sound present, S2 normal heart sound present and No murmurs present (Cardio) RHYTHM: regular rhythm HEART SOUNDS: S1 normal heart sound present and S2 normal heart sound present GI: COMMON NORMALS: Normal to inspection, nondistended, normoactive bowel sounds present, Soft to palpation and non-tender PALPATION: Yes Soft to palpation Extremity: COMMON NORMALS: no joint enlargement GENERAL: Yes edema (2+ LE edema below knees) Neuro: COMMON NORMALS: patient oriented x3 and moves all extremities Skin: COMMON NORMALS: no rashes or lesions noted GENERAL SKIN EXAM: no rashes or lesions noted Data : 01/04/21 13:40 01/04/21 13:40 A&P Assessment and plan (1) Non-ST elevation NC (NSTEMI): Continue aspirin, metabolic, statin, Lovenox. Cardiology consultation. Cardiac monitoring. Echocardiogram was just performed on 01/03. Status: Acute (2) CHF (congestive heart failure): CHF exacerbation, acute, systolic and diastolic with dyspnea on exertion, PND. Continue Lasix IV. Metolazone. Monitor CHRIST. Santillan catheter for accurate I&O. EF 40-45%. Grade 3 diastolic dysfunction. Trace MR. Aortic valve thickened with mild . Status: Chronic Qualifiers: Heart failure chronicity: acute on chronic Heart failure type: unspecified Qualified Code(s): I50.9 - Heart failure, unspecified (3) COPD (chronic obstructive pulmonary disease): Reports history of COPD. Not normally on supplemental oxygen. Collect sputum culture. Discussed with him his , prednisone, doxycycline, neb treatments. Status: Chronic Qualifiers: COPD type: emphysema Emphysema type: panlobular Qualified Code(s): J43.1 - Panlobular emphysema (4) Chronic kidney disease, stage III (moderate): Cr at baseline, 2.2 Status: Acute (5) Tobacco abuse: Encourage cessation. Status: Acute (6) D-dimer, elevated: Low probability PE on VQ Suspect probably 2/2 NSTEMI Status: Acute (7) Hypercalcemia: Minimal 10.7 w albumnin 4. Reassess. Check ionized Ca. Status: Acute (8) Elevated lipase: Minimal lipase elevation. Unclear reason, but not suggestive of acute pancreatitis. Status: Acute (9) Bradycardia, sinus: Decrease metoprolol dose to 50mg. Monitor on telemetry. Status: Acute Attestations Medical Necessity Statement*: Admission of over 2 midnights is going to needed for assessment of management of non-STEMI, CHF exacerbation, COPD distribution. 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
--- NOTE | 2021-01-04 18:50 | PC.NURSE ---
Received patient from the ER via wheelchair at 1835, report received. Patient is bradycardic-in the 50's and hypertensive -161/99. Awaiting medication orders to be loaded in the Pyxis. Patient is alert and oriented. Patient has been oriented to room and call dubon. PT has been instructed to alert nurse for feelings of dizziness, SOB, or if they need any help. Patient verbalized understanding.
--- NOTE | 2021-01-04 19:39 | ECG_ITS ---
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 Measurements Intervals [place] Rate: 59 P: IN: QRS: 22 QRSD: 177 T: 203 QT: 479 QTc: 477 Interpretive Statements SINUS BRADYCARDIA LEFT BUNDLE BRANCH BLOCK [120+ ms QRS DURATION, 80+ ms Q/S IN V1/V2, 85+ ms R IN I/aVL/V5/V6] Compared to ECG 01/04/2021 16:13:08 Left bundle-branch block now present Sinus bradycardia no longer present First degree AV block no longer present Left-axis deviation no longer present Intraventricular conduction delay no longer present Electronically Signed On 01-05-2021 11:01:49 ACADEMIC ADVISER by Igor Wright M.D. [id number]
[2021-01-04 20:11] LABS: Ionized Calcium 1.3 mmol/L (1.1-1.4)
[2021-01-04] MEDS: ipratropium-albuterol 3 mL Neb INHALATION (20:14)
--- NOTE | 2021-01-04 20:17 | PM.CONSULT ---
Providers/Reason For Consult Consulting Physican/Specialty*: Cardiology Reason for Consult*: Non-ST ovation VT, decompensated systolic heart failure Attending Physician: Jhonathan Bowman Primary Care Provider: KASHMIR Krueger History of Present Illness History of Present Illness Zak Gibbs is a 76 year old male past medical history significant for extensive coronary artery disease status [place] [facility] peripheral vascular disease status post AAA repair, history of renal stenosis and percutaneous intervention to renal artery, history of congestive heart failure, history of chronic kidney disease with baseline creatinine around 2.0, systolic heart failure, hypertension hyperlipidemia presented to ER with worsening of chest pain shortness of breath PND orthopnea. Cardiac markers were consistent with non-ST elevation VT with troponin more than 400. Patient left hospital AGAINST MEDICAL ADVICE yesterday when he was admitted for non-ST elevation VT and CHF exacerbation. He was not happy with the care and would like to go to [facility] however he decided to come back since his symptoms are getting worse. Currently he is chest pain-free but admits to orthopnea and dyspnea on exertion. Review of Systems General: Reports: 10 or more systems reviewed and unremarkable except in HPI and below Const: Denies: fever(s), chills, body aches, malaise or diaphoresis Eyes: Denies: change in vision, blurry vision, photophobia or eye redness ENMT: Denies: throat pain, enlarged tonsils, odynophagia, hoarseness, mouth pain, swelling of lips/tongue, oral sores or ear or mastoid pain Card: Reports: chest pain, edema and dyspnea on exertion; Denies: palpitations, syncope or pre-syncope Resp: Reports: dyspnea, productive cough and change in phlegm color; Denies: hemoptysis GI: Denies: abdominal pain, nausea, vomiting, diarrhea, constipation, hematochezia or melena : Denies: flank pain, difficulty urinating, dysuria, urinary frequency, urinary urgency, urinary hesitancy or hematuria Musc: Denies: neck pain, back pain, extremity swelling, joint swelling or joint redness Skin/Breast: Denies: rash, pruritus, erythema, sores or new lesions Neuro: Denies: headache(s), numbness in extremities, weakness in extremities, dizziness, confusion or seizure-like activity Endo: Denies: polyuria, polydipsia or tired all the time David/Lymph: Denies: easy bleeding or purpura All/Imm: Denies: urticaria, throat swelling or tongue swelling Meds/Allergies Home Medications and Allergies Home Medications Medication Instructions Recorded Confirmed Last Taken Type nitroglycerin 0.4 mg sublingual 0.4 mg SUBLINGUAL Q5M PRN #25 tab 02/02/20 01/04/21 01/04/21 Rx tablet amlodipine 10 mg tablet 10 mg PO DAILY #30 tab 10/17/20 01/04/21 01/04/21 Rx budesonide-formoterol HFA 160 2 puff INHALATION Q12H #10.2 gm 10/17/20 01/04/21 01/04/21 Rx mcg-4.5 mcg/actuation aerosol inhaler metolazone 2.5 mg tablet 2.5 mg PO DAILY PRN #14 tab 10/17/20 01/04/21 01/04/21 Rx Pepcid 40 mg PO BID@08,17 01/04/21 01/04/21 01/04/21 History Tricor 145 mg PO DAILY@22 01/04/21 01/04/21 01/03/21 History aspirin 81 mg PO DAILY@08 01/04/21 01/04/21 01/04/21 History cholecalciferol (vitamin D3) 125 mcg PO DAILY@1700 01/04/21 01/04/21 01/03/21 History furosemide 40 mg PO BID@08,17 01/04/21 01/04/21 01/04/21 History hydralazine 50 mg PO TID@08,15,18 01/04/21 01/04/21 01/04/21 History isosorbide mononitrate 60 mg PO BID@08,17 01/04/21 01/04/21 01/04/21 History metoprolol tartrate 75 mg PO Q12H 01/04/21 01/04/21 01/04/21 History Allergies Allergy/AdvReac Type Severity Reaction Status Date / Time morphine Allergy Unknown Verified 01/02/21 21:24 Current Medications Current Medications Generic Name Dose Route Start Last Admin Trade Name Freq PRN Reason Stop Dose Admin Albuterol/Ipratropium 3 ml 01/04/21 21:00 01/04/21 20:14 Ipratropium-Albuterol 3 Ml Neb INHALATION 3 ml Q6H.RESPIRATORY JUANI Administration Fluticasone/Salmeterol 1 puff 01/04/21 20:00 01/04/21 19:36 Fluticasone-Salmeterol 500-50 Diskus INHALATION 1 puff BID.RESPIRATORY JUANI Administration PFSH Acute PFSH: Medical History Abdominal aortic aneurysm (AAA) Aortic stenosis, mild Carotid stenosis CHF (congestive heart failure) CKD (chronic kidney disease) COPD (chronic obstructive pulmonary disease) Dyslipidemia History of stent insertion of renal artery Hypertension Occlusion of right internal carotid artery Pulmonary emphysema Renal artery stenosis Tobacco abuse Type 2 diabetes mellitus Vitamin D deficiency Surgical History Aortocoronary bypass status History of carotid artery stenosis History of colon cancer 2014 History of endovascular stent graft for abdominal aortic aneurysm (AAA) History of fracture of right shoulder 3 times surgery- bone repair with screws and anchor History of procedure for peripheral vascular disease Right leg Hx of primary malignant neoplasm of urinary bladder Status post four vessel coronary artery bypass (~02/2014) Family History Family/Other Diabetes Hypertension CAD (coronary artery disease) Social History Smoking and tobacco status: current every day smoker Second hand smoke exposure: Yes Smoking risk assessment/counseling performed?: Yes Alcohol intake: current Desire information about alcohol rehabilitation?: No Counseling given: No Desire information about substance/drug rehabilitation?: No Counseling given: No Adopted: No Caregiver/support person: No Lives independently: Yes Household members: spouse Housing: House Marital status: service: No Current occupational status: retired History of recent travel: No Current gender identity: Male Dietary Habits: Current diet type/program: diabetic Caffeine: Yes Safety: Seatbelt use: always Helmet use: No Drive intoxicated or ride with intoxicated tow motor driver?: never Vitals/I&O/Wt Last Vital Signs Temp 97.6 F 01/04/21 19:23 Pulse 63 01/04/21 20:17 Resp 16 01/04/21 20:14 BP 161/99 01/04/21 19:23 Pulse Ox 93 01/04/21 20:14 01/04/21 01/04/21 01/04/21 06:59 14:59 22:59 Output Total 500 / 500 Balance -500 / -500 Weight last 48 hrs Weight 214 lb Physical Exam Narrative: EXAM NARRATIVE: GENERAL: Patient is alert, awake and oriented x3. NECK: No jugular vein distension. HEENT: No cyanosis. No icterus. No pallor. HEART: Regular S1 and S2. No murmur, rub or gallop. LUNGS: Inspiratory crackles bilaterally. ABDOMEN: Soft, nontender and nondistended. Positive bowel sounds. No guarding, rebound or tenderness. CENTRAL NERVOUS SYSTEM: Grossly nonfocal. EXTREMITIES: Lower extremities with edema bilaterally. A&P Assessment and plan (1) Non-ST elevation VT (NSTEMI): Patient complains of off-and-on chest pain but overall stable. He is not heart failure with acute exacerbation. He has underlying chronic kidney disease stage IV with baseline creatinine around 2.0 he is high risk for contrast-induced nephropathy. At this point we will try to manage him conservatively if he continues to have chest pain despite of optimization of medicine or euvolemic state in that case due to unstable non-ST elevation VT may will consider left heart catheter weighing risk and benefit. We will add isosorbide mononitrate aspirin Plavix. Will reduce beta-tres due to bradycardia. Patient has already been started on anticoagulation. Status: Acute (2) Acute exacerbation of CHF (congestive heart failure): Continue diuresis as advised by the medicine. Continue to monitor urine output goal is -1.5 L daily continue to monitor creatinine Status: Acute Qualifiers: Heart failure type: systolic Qualified Code(s): I50.23 - Acute on chronic systolic (congestive) heart failure (3) History of endovascular stent graft for abdominal aortic aneurysm (AAA): Appear to be stable. Continue to monitor Status: Acute (4) Tobacco abuse: Status: Acute (5) CKD (chronic kidney disease): Patient baseline creatinine is around 2.0 he is in heart failure. I will diurese and hopefully it will improve his creatinine and bring back to his baseline. 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
[2021-01-04 20:42] LABS: Troponin 5 6HR 479.3 ng/L (0-15)
[2021-01-04 20:43] LABS: Troponin 5 6HR Delta 63.3 ng/L (0-12)
[2021-01-04] MEDS: clopidogrel 300 mg Tablet PO (21:51)
[2021-01-04] MEDS: doxycycline 100 mg Tablet PO (21:51)
[2021-01-04] MEDS: hyDRALAzine 50 mg Tablet PO (21:52)
[2021-01-04] MEDS: fenofibrate 145 mg Tablet PO (21:52)
[2021-01-04] MEDS: atorvastatin 40 mg Tablet PO (21:52)
[2021-01-04] MEDS: metoprolol tartrate 25 mg Tablet 12.5 MG PO (21:52)
[2021-01-04] MEDS: predniSONE 20 mg Tablet 40 MG PO (21:52)
[2021-01-05] VITALS (21 sets, daily range): BP systolic 128–163; BP diastolic 62–89; PULSE 52–95; RESP 13–30; TEMP 36.6–36.9; O2SAT 94–97
[2021-01-05] MEDS: potassium chloride ER 20 mEq Tablet 40 MEQ PO ×2 (00:04→12:43)
[2021-01-05] MEDS: ipratropium-albuterol 3 mL Neb INHALATION ×4 (02:36→20:13)
[2021-01-05] MEDS: FUROsemide 10 mg/mL SDV 10mL 80 MG IVP (04:26)
[2021-01-05 04:47] LABS: Basophils % 0.1 %; Hematocrit 41.8 % (42.0-52.0); Hemoglobin 13.3 g/dL (11.7-16.6); Lymphocytes # 0.4 10^3/uL (0.8-4.8); Lymphocytes % 5.5 %; Mean Corpuscular HGB Conc 31.8 g/dL (30.0-36.0); Mean Corpuscular Hemoglobin 29.1 pg (28.0-34.0); Mean Corpuscular Volume 91.5 fL (80-94); Mean Platelet Volume 10.2 fL (7.4-10.4); Monocytes # 0.2 10^3/uL (0.2-0.9); Monocytes % 2.3 %; Neutrophils # 6.98 10^3/uL (1.8-7.7); Neutrophils % 90.8 %; Nucleated Red Blood Cells % 0 %; Platelet Count 309 10^3/cmm (130-400); Red Blood Count 4.57 10^6/uL (4.1-5.3); Red Cell Distribution Width 15.7 % (12.1-15.1); White Blood Count 7.7 10^3/uL (4.0-10.0)
[2021-01-05 05:29] LABS: Anion Gap 19.3 (5-19); Blood Urea Nitrogen 52 mg/dL (8-23); Calcium 10.8 mg/dL (8.5-10.5); Carbon Dioxide 29 mmol/L (22-29); Chloride 96 mmol/L (98-107); Glucose 145 mg/dL (65-115); Osmolality Calculated 309 mOsm/kg (285-295); Potassium 3.3 mmol/L (3.5-5.1); Sodium 141 mmol/L (136-145)
[2021-01-05] MEDS: hyDRALAzine 50 mg Tablet PO ×3 (07:58→19:01)
[2021-01-05] MEDS: isosorbide mononitrate ER 60 mg Tablet PO ×2 (07:58→17:11)
[2021-01-05] MEDS: clopidogrel 75 mg Tablet PO (08:37)
[2021-01-05] MEDS: predniSONE 20 mg Tablet 40 MG PO (08:39)
[2021-01-05] MEDS: doxycycline 100 mg Tablet PO ×2 (08:40→20:00)
[2021-01-05] MEDS: metoprolol tartrate 25 mg Tablet 12.5 MG PO ×2 (08:40→20:00)
[2021-01-05] MEDS: famotidine 20 mg Tablet 40 MG PO ×2 (08:45→17:11)
[2021-01-05] MEDS: amlodipine 5 mg Tablet PO (10:09)
[2021-01-05] MEDS: aspirin 81 mg EC Tablet PO (14:13)
[2021-01-05 15:24] LABS: Magnesium 2.7 mg/dL (1.7-2.3)
[2021-01-05] MEDS: enoxaparin 100 mg/mL Syringe SUBCUT (16:41)
[2021-01-05] MEDS: cholecalciferol (vitamin D3) 5,000 unit Tablet 5000 UNIT PO (16:46)
[2021-01-05] MEDS: FUROsemide 10 mg/mL SDV 4mL 40 MG IVP (17:11)
--- NOTE | 2021-01-05 17:18 | PM.PN ---
Subjective Subjective: Interval history: Diuresed well overnight feeling much better tightness of the chest has gone away shortness of breath has improved Vitals/I&O/Wt Last Vital Signs Temp 98.0 F 01/05/21 15:06 Pulse 70 01/05/21 15:25 Resp 17 01/05/21 15:19 BP 150/89 01/05/21 15:06 Pulse Ox 95 01/05/21 15:19 01/05/21 01/05/21 01/05/21 06:59 14:59 22:59 Intake Total 1080 / 1080 Output Total 400 / 2600 1500 / 1500 300 / 1800 Balance -400 / -2100 -420 / -420 -300 / -720 Weight last 48 hrs Weight 212 lb 12.8 oz Weight 214 lb Physical Exam Narrative: EXAM NARRATIVE: GENERAL: Patient is alert, awake and oriented x3. NECK: No jugular vein distension. HEENT: No cyanosis. No icterus. No pallor. HEART: Regular S1 and S2. No murmur, rub or gallop. LUNGS: No crepitus bilaterally. ABDOMEN: Soft, nontender and nondistended. Positive bowel sounds. No guarding, rebound or tenderness. CENTRAL NERVOUS SYSTEM: Grossly nonfocal. EXTREMITIES: Lower extremities with edema bilaterally. Data : 01/05/21 04:19 01/05/21 04:19 A&P Assessment and plan (1) Non-ST elevation MT (NSTEMI): Patient complains of off-and-on chest pain but overall stable. He is not heart failure with acute exacerbation. He has underlying chronic kidney disease stage IV with baseline creatinine around 2.0 he is high risk for contrast-induced nephropathy. At this point we will try to manage him conservatively if he continues to have chest pain despite of optimization of medicine or euvolemic state in that case due to unstable non-ST elevation MT may will consider left heart catheter weighing risk and benefit. We will add isosorbide mononitrate aspirin Plavix. Will reduce beta-tres due to bradycardia. Patient has already been started on anticoagulation. On today's rounding with the patient on 01/05/2021 patient is stable and improved. Denies chest pain shortness of breath has also improved. Continue current regimen Status: Acute (2) Acute exacerbation of CHF (congestive heart failure): Diuresed well continue current regimen continue current IV 40 mg of Lasix twice a day Status: Acute Qualifiers: Heart failure type: systolic Qualified Code(s): I50.23 - Acute on chronic systolic (congestive) heart failure (3) History of endovascular stent graft for abdominal aortic aneurysm (AAA): Appear to be stable. Continue to monitor Status: Acute (4) Tobacco abuse: Status: Acute (5) CKD (chronic kidney disease): Stable creatinine continue to monitor Status: Chronic Qualifiers: Chronic kidney disease stage: stage 4 (severe) Qualified Code(s): N18.4 - Chronic kidney disease, stage 4 (severe) Attestations Medical Necessity Statement*: Patient require continuation hospitalization for above defined care. 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
--- NOTE | 2021-01-05 17:45 | P.PN_ITS ---
Subjective Subjective: Interval history: He reports today he is feeling better. Breathing easier. Denies chest pain. Edema in lower extremities is decreasing. Vitals/I&O/Wt Last Vital Signs Temp 98.0 F 01/05/21 15:06 Pulse 70 01/05/21 15:25 Resp 17 01/05/21 15:19 BP 150/89 01/05/21 15:06 Pulse Ox 95 01/05/21 15:19 01/05/21 01/05/21 01/05/21 06:59 14:59 22:59 Intake Total 1080 / 1080 Output Total 400 / 2600 1500 / 1500 300 / 1800 Balance -400 / -2100 -420 / -420 -300 / -720 Weight last 48 hrs Weight 96.524 kg Weight 97.069 kg Physical Exam Const: COMMON NORMALS: no acute distress and patient oriented x3 HENMT: COMMON NORMALS: oropharynx normal Neck/C-Spine: COMMON NORMALS: no JVD Chest: OTHER: Midline all sternotomy scar Resp: COMMON NORMALS: normal respiratory effort AUSCULTATION: diminished lung sounds Cardio: COMMON NORMALS: no JVD, regular rhythm, S1 normal heart sound present, S2 normal heart sound present and No murmurs present (Cardio) RHYTHM: regular rhythm HEART SOUNDS: S1 normal heart sound present and S2 normal heart sound present GI: COMMON NORMALS: Normal to inspection, nondistended, normoactive bowel sounds present, Soft to palpation and non-tender PALPATION: Yes Soft to palpation Extremity: COMMON NORMALS: no joint enlargement GENERAL: Yes edema (2+ LE edema below knees, improving) Neuro: COMMON NORMALS: patient oriented x3 and moves all extremities Skin: COMMON NORMALS: no rashes or lesions noted GENERAL SKIN EXAM: no rashes or lesions noted Data : 01/05/21 04:19 01/05/21 04:19 A&P Assessment and plan (1) Non-ST elevation [place] (NSTEMI): Continue aspirin, metabolic, statin, Lovenox. Plavix. Continue optimization of acute exacerbation of systolic and diastolic CHF with consideration of possible left heart cath depending on response to treatment and condition. Chest pain so far has resolved. Cardiac monitoring. Echocardiogram was just performed on 01/03. Status: Acute (2) CHF (congestive heart failure): CHF exacerbation, acute, systolic and diastolic with dyspnea on exertion, PND. Continue Lasix IV. Hold metolazone as he is diuresing very well. Monitor renal function with chronic kidney disease. He is -2.76 L, he is concerned about overly brisk diuresis, will decrease Lasix a little to 40 mg twice daily. Monitor I&O. He declined Santillan catheter. EF 40-45%. Grade 3 diastolic dysfunction. Trace MR. Aortic valve thickened with mild . Status: Chronic Qualifiers: Heart failure chronicity: acute on chronic Heart failure type: unspecified Qualified Code(s): I50.9 - Heart failure, unspecified (3) COPD (chronic obstructive pulmonary disease): Air entry improving. Reports history of COPD. Not normally on supplemental oxygen. Collect sputum culture. Continue prednisone, doxycycline, neb treatments. Status: Chronic Qualifiers: COPD type: emphysema Emphysema type: panlobular Qualified Code(s): J43.1 - Panlobular emphysema (4) Chronic kidney disease, stage III (moderate): Cr at baseline, 2.2 Status: Acute (5) Tobacco abuse: Encourage cessation. Status: Acute (6) D-dimer, elevated: Low probability PE on VQ. Assess lower extremity venous duplex ultrasound. Suspect probably 2/2 NSTEMI Status: Acute (7) Hypercalcemia: Minimal 10.8, however, ionized calcium is normal. Follow-up with primary care provider. Status: Acute (8) Elevated lipase: Minimal lipase elevation. Unclear reason, but not suggestive of acute pancreatitis. Status: Acute (9) Bradycardia, sinus: Metoprolol decreased to 12.5 mg twice daily. Monitor on telemetry. Status: Acute Attestations Medical Necessity Statement*: Continue admission for assessment management of acute systolic and diastolic CHF exacerbation, COPD exacerbation, NSTEMI in a gentleman with chronic kidney disease, current smoker. 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
[2021-01-05] MEDS: atorvastatin 40 mg Tablet PO (20:00)
[2021-01-05] MEDS: acetaminophen 325 mg Tablet 650 MG PO (20:02)
[2021-01-05] MEDS: fenofibrate 145 mg Tablet PO (22:15)
[2021-01-06] VITALS (17 sets, daily range): BP systolic 123–176; BP diastolic 68–106; PULSE 57–79; RESP 16–20; TEMP 35.8–36.8; O2SAT 95–99
[2021-01-06] MEDS: ipratropium-albuterol 3 mL Neb INHALATION ×4 (03:26→21:08)
[2021-01-06 04:30] LABS: Basophils % 0.3 %; Eosinophils % 0.1 %; Hematocrit 40.4 % (42.0-52.0); Lymphocytes # 1.7 10^3/uL (0.8-4.8); Lymphocytes % 16.8 %; Mean Corpuscular HGB Conc 32.2 g/dL (30.0-36.0); Mean Corpuscular Hemoglobin 28.8 pg (28.0-34.0); Mean Corpuscular Volume 89.4 fL (80-94); Mean Platelet Volume 9.7 fL (7.4-10.4); Neutrophils # 7.29 10^3/uL (1.8-7.7); Neutrophils % 71.4 %; Nucleated Red Blood Cells % 0 %; Platelet Count 311 10^3/cmm (130-400); Red Blood Count 4.52 10^6/uL (4.1-5.3); Red Cell Distribution Width 15.5 % (12.1-15.1); White Blood Count 10.2 10^3/uL (4.0-10.0)
[2021-01-06 04:50] LABS: Blood Urea Nitrogen 60 mg/dL (8-23); Calcium 10.7 mg/dL (8.5-10.5); Carbon Dioxide 30 mmol/L (22-29); Chloride 95 mmol/L (98-107); Glucose 124 mg/dL (65-115); Osmolality Calculated 302 mOsm/kg (285-295); Sodium 137 mmol/L (136-145)
[2021-01-06 04:55] LABS: Anion Gap 15.3 (5-19); Potassium 3.3 mmol/L (3.5-5.1)
[2021-01-06] MEDS: FUROsemide 10 mg/mL SDV 4mL 40 MG IVP ×2 (05:57→16:26)
[2021-01-06] MEDS: amlodipine 5 mg Tablet PO (08:21)
[2021-01-06] MEDS: famotidine 20 mg Tablet 40 MG PO ×2 (08:21→16:25)
[2021-01-06] MEDS: predniSONE 20 mg Tablet 40 MG PO (08:22)
[2021-01-06] MEDS: hyDRALAzine 50 mg Tablet PO ×3 (08:22→17:37)
[2021-01-06] MEDS: metoprolol tartrate 25 mg Tablet 12.5 MG PO ×2 (08:22→20:19)
[2021-01-06] MEDS: doxycycline 100 mg Tablet PO ×2 (08:24→20:18)
[2021-01-06] MEDS: aspirin 81 mg EC Tablet PO (08:24)
--- NOTE | 2021-01-06 08:30 | ECG_ITS ---
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1945 Requested By: Jhonathan Bowman Order Number: [id number] Reading MD: GILDARDO FIGUEROA Measurements Intervals [place] Rate: 64 P: IN: QRS: -46 QRSD: 143 T: 79 QT: 441 QTc: 457 Interpretive Statements ATRIAL FIBRILLATION MARKED LEFT AXIS DEVIATION [QRS AXIS < -30] LEFT BUNDLE BRANCH BLOCK [120+ ms QRS DURATION, 80+ ms Q/S IN V1/V2, 85+ ms R IN I/aVL/V5/V6] Compared to ECG 01/04/2021 20:59:04 Left-axis deviation now present Sinus bradycardia no longer present Electronically Signed On 01-06-2021 21:17:12 CREDIT OFFICER by GILDARDO FIGUEROA [email or web address]
[2021-01-06] MEDS: potassium chloride ER 20 mEq Tablet 40 MEQ PO (09:13)
[2021-01-06] MEDS: clopidogrel 75 mg Tablet PO (09:13)
[2021-01-06] MEDS: isosorbide mononitrate ER 60 mg Tablet PO ×2 (09:14→16:26)
--- NOTE | 2021-01-06 11:00 | PC.NURSE ---
Physician Rounding Rounded with Dr. Siddiqui, the plan is to change lasix to PO and continue to monitor for 24 hours. If no events occur pt will be d/c. Pt has c/o heater not working in the room. Maintenance has been called and patient will be moved to private room when one becomes available.
[2021-01-06] MEDS: enoxaparin 100 mg/mL Syringe SUBCUT (15:17)
--- NOTE | 2021-01-06 16:02 | P.PN_ITS ---
Subjective Subjective: Interval history: Continues to diurese well feeling much better he is walking around without any chest pain creatinine stays around 2.1 Medications: Reviewed: Yes Vitals/I&O/Wt Last Vital Signs Temp 974 F H 01/06/21 15:09 Pulse 73 01/06/21 15:09 Resp 17 01/06/21 15:09 BP 127/77 01/06/21 15:09 Pulse Ox 98 01/06/21 15:09 01/06/21 01/06/21 01/06/21 06:59 14:59 22:59 Intake Total 600 / 600 Output Total 650 / 3970 850 / 850 Balance -650 / -2330 -250 / -250 Weight last 48 hrs Weight 210 lb 8 oz Weight 212 lb 12.8 oz Physical Exam Narrative: EXAM NARRATIVE: GENERAL: Patient is alert, awake and oriented x3. NECK: No jugular vein distension. HEENT: No cyanosis. No icterus. No pallor. HEART: Regular S1 and S2. No murmur, rub or gallop. LUNGS: No crepitus bilaterally. ABDOMEN: Soft, nontender and nondistended. Positive bowel sounds. No guarding, r ebound or tenderness. CENTRAL NERVOUS SYSTEM: Grossly nonfocal. EXTREMITIES: Lower extremities with edema bilaterally. Data : 01/06/21 04:00 01/06/21 04:12 A&P Assessment and plan (1) Non-ST elevation [place] (NSTEMI): Continues to do better denies any more chest pain. Since patient is doing well on optimization of medicine and because of the fact patient has a lot of comorbidities including chronic kidney disease with baseline creatinine of 2.0 and high risk for bleeding we would consider medical management and not opt for invasive strategy until absolutely necessary such as worsening of heart failure with increased ischemia burden arrhythmia. I have discussed with the patient and the by bedside they all are in agreement. Continue current regimen Status: Acute (2) Acute exacerbation of CHF (congestive heart failure): Continue diuretics as it is. We will switch him to p.o. from tomorrow Status: Acute Qualifiers: Heart failure type: systolic Qualified Code(s): I50.23 - Acute on chronic systolic (congestive) heart failure (3) History of endovascular stent graft for abdominal aortic aneurysm (AAA): Appear to be stable. 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
[2021-01-06] MEDS: cholecalciferol (vitamin D3) 5,000 unit Tablet 5000 UNIT PO (16:26)
--- NOTE | 2021-01-06 17:17 | PC.NURSE ---
pt up and ambulating down hallways pt is walking down the hallways with at bedside. Pt denies any chest pain or discomfort to nurse. Pt denies any shortness of breath to nurse.
--- NOTE | 2021-01-06 18:00 | USR_ITS ---
PROCEDURE INFORMATION: Exam: US Duplex Lower Extremity Veins, Bilateral Exam date and time: 01/06/2021 6:13 AM Age: 76 years old Clinical indication: Abnormal findings; Abnormal lab test; Elevated d-dimer; Swelling (edema) of limb; Lower extremity, bilateral; Additional info: Swelling, elev ddimer, assess for vte TECHNIQUE: Imaging protocol: Real-time duplex ultrasound of the extremities with 2-D nguyen scale, color Doppler flow and spectral waveform analysis with image documentation. Complete exam focused on the bilateral lower extremity veins. COMPARISON: No relevant prior studies available. FINDINGS: Right deep veins: Unremarkable. The common femoral, femoral, proximal profunda femoral and popliteal veins are patent without thrombus. Normal Doppler waveforms. Normal compressibility and augmentation response. Right superficial veins: The right greater saphenous vein is not identified (previous graft harvesting?), no thrombus identified. Left deep veins: Unremarkable. The common femoral, femoral, proximal profunda femoral and popliteal veins are patent without thrombus. Normal Doppler waveforms. Normal compressibility and augmentation response. Left superficial veins: Saphenofemoral junction is patent without thrombus. The left greater saphenous vein is not identified below the knee (previous graft harvesting?). Soft tissues: Unremarkable. US/[place] [id number] IMPRESSION: No evidence of deep vein thrombosis.
[2021-01-06] MEDS: acetaminophen 325 mg Tablet 650 MG PO (20:18)
[2021-01-06] MEDS: atorvastatin 40 mg Tablet PO (20:19)
--- NOTE | 2021-01-06 20:54 | P.PN_ITS ---
Subjective Subjective: Interval history: Today he is doing well. Denies any chest pain or pressure. Swelling is significantly decreasing and resolving in his legs. He is walking around and is happy with progress he has been making. Vitals/I&O/Wt Last Vital Signs Temp 98.3 F 01/06/21 19:58 Pulse 77 01/06/21 19:58 Resp 19 H 01/06/21 19:58 BP 126/79 01/06/21 19:58 Pulse Ox 95 01/06/21 19:58 01/06/21 01/06/21 01/06/21 06:59 14:59 22:59 Intake Total 600 / 600 120 / 720 Output Total 650 / 3970 850 / 850 320 / 1170 Balance -650 / -2330 -250 / -250 -200 / -450 Weight last 48 hrs Weight 95.481 kg Weight 96.524 kg Physical Exam Const: COMMON NORMALS: no acute distress and patient oriented x3 HENMT: COMMON NORMALS: oropharynx normal Neck/C-Spine: COMMON NORMALS: no JVD Chest: OTHER: Midline old sternotomy scar Resp: COMMON NORMALS: normal respiratory effort AUSCULTATION: diminished lung sounds Cardio: COMMON NORMALS: no JVD, regular rhythm, S1 normal heart sound present, S2 normal heart sound present and No murmurs present (Cardio) RHYTHM: regular rhythm HEART SOUNDS: S1 normal heart sound present and S2 normal heart sound present GI: COMMON NORMALS: Normal to inspection, nondistended, normoactive bowel sounds present, Soft to palpation and non-tender PALPATION: Yes Soft to palpation Extremity: COMMON NORMALS: no joint enlargement GENERAL: Yes edema (2+ LE edema below knees, improving) Neuro: COMMON NORMALS: patient oriented x3 and moves all extremities Skin: COMMON NORMALS: no rashes or lesions noted GENERAL SKIN EXAM: no rashes or lesions noted Data : 01/06/21 04:00 01/06/21 04:12 A&P Assessment and plan (1) Non-ST elevation [place] (NSTEMI): He is making good progress with his volume status, CHF exacerbation. Chest pain without recurrence. Continue aspirin, metabolic, statin, Lovenox. Plavix. Continue optimization of acute exacerbation of systolic and diastolic CHF with additional assessment and treatment depending on cardiology recommendations. Cardiac monitoring. Status: Acute (2) CHF (congestive heart failure): Continue Lasix IV 40 twice daily. Monitor I&O. Monitor renal function. So far tolerating diuresis very well. Continue CAD medications. May benefit from initiation of ACEI/ARB prior to discharge if renal function remains stable. EF 40-45%. Grade 3 diastolic dysfunction. Trace MR. Aortic valve thickened with mild . Status: Chronic Qualifiers: Heart failure chronicity: acute on chronic Heart failure type: unspecified Qualified Code(s): I50.9 - Heart failure, unspecified (3) COPD (chronic obstructive pulmonary disease): Taper down prednisone. Air entry improving. Reports history of COPD. Not normally on supplemental oxygen. Collect sputum culture. Continue doxycycline, neb treatments. Status: Chronic Qualifiers: COPD type: emphysema Emphysema type: panlobular Qualified Code(s): J43.1 - Panlobular emphysema (4) Chronic kidney disease, stage III (moderate): Cr at baseline, 2.2 Status: Acute (5) Tobacco abuse: Encourage cessation. Status: Acute (6) D-dimer, elevated: Low probability PE on VQ. Assess lower extremity venous duplex ultrasound. Suspect probably 2/2 NSTEMI Status: Acute (7) Hypercalcemia: Minimal 10.8, however, ionized calcium is normal. Follow-up with primary care provider. Status: Acute (8) Elevated lipase: Minimal lipase elevation. Unclear reason, but not suggestive of acute pancreatitis. Status: Acute (9) Bradycardia, sinus: Metoprolol decreased to 12.5 mg twice daily. Improved. Monitor on telemetry. Status: Acute Attestations Medical Necessity Statement*: Continue admission for assessment management of acute exacerbation of systolic and diastolic CHF, non-STEMI, in the setting of chronic kidney disease, COPD exacerbation in a gentleman who is a current smoker and at high risk of cardiac, renal and respiratory complications. 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
[2021-01-06] MEDS: fenofibrate 145 mg Tablet PO (21:29)
[2021-01-07] VITALS (9 sets, daily range): BP systolic 146–171; BP diastolic 69–91; PULSE 60–82; RESP 15–30; TEMP 36.8–37.3; O2SAT 93–96
[2021-01-07] MEDS: ipratropium-albuterol 3 mL Neb INHALATION ×2 (02:28→08:29)
[2021-01-07 05:43] LABS: Basophils % 0.2 %; Eosinophils % 0.1 %; Hematocrit 42.4 % (42.0-52.0); Hemoglobin 13.7 g/dL (11.7-16.6); Lymphocytes # 1.5 10^3/uL (0.8-4.8); Lymphocytes % 15.1 %; Mean Corpuscular HGB Conc 32.3 g/dL (30.0-36.0); Mean Corpuscular Hemoglobin 29.3 pg (28.0-34.0); Mean Corpuscular Volume 90.6 fL (80-94); Mean Platelet Volume 10.1 fL (7.4-10.4); Monocytes # 0.8 10^3/uL (0.2-0.9); Monocytes % 8.2 %; Neutrophils # 7.27 10^3/uL (1.8-7.7); Neutrophils % 74.8 %; Nucleated Red Blood Cells % 0 %; Platelet Count 343 10^3/cmm (130-400); Red Blood Count 4.68 10^6/uL (4.1-5.3); Red Cell Distribution Width 15.9 % (12.1-15.1); White Blood Count 9.7 10^3/uL (4.0-10.0)
[2021-01-07 06:09] LABS: Anion Gap 17.5 (5-19); Blood Urea Nitrogen 62 mg/dL (8-23); Calcium 10.9 mg/dL (8.5-10.5); Carbon Dioxide 28 mmol/L (22-29); Chloride 95 mmol/L (98-107); Glucose 115 mg/dL (65-115); Osmolality Calculated 303 mOsm/kg (285-295); Potassium 3.5 mmol/L (3.5-5.1); Sodium 137 mmol/L (136-145)
[2021-01-07] MEDS: FUROsemide 10 mg/mL SDV 4mL 40 MG IVP (06:22)
[2021-01-07] MEDS: aspirin 81 mg EC Tablet PO (08:36)
[2021-01-07] MEDS: isosorbide mononitrate ER 60 mg Tablet PO (08:36)
[2021-01-07] MEDS: hyDRALAzine 50 mg Tablet PO (08:37)
[2021-01-07] MEDS: amlodipine 5 mg Tablet PO (08:37)
[2021-01-07] MEDS: clopidogrel 75 mg Tablet PO (08:37)
[2021-01-07] MEDS: predniSONE 20 mg Tablet PO (08:37)
[2021-01-07] MEDS: metoprolol tartrate 25 mg Tablet 12.5 MG PO (08:38)
[2021-01-07] MEDS: doxycycline 100 mg Tablet PO (08:39)
[2021-01-07] MEDS: famotidine 20 mg Tablet 40 MG PO (08:40)
--- NOTE | 2021-01-07 10:34 | DCPLANNER ---
IMM completed on 01/07/21 @ 9445. Copy of rights given to pt.
--- NOTE | 2021-01-07 12:47 | PM.PN ---
Subjective Subjective: Interval history: Feeling much better denies any chest pain denies shortness of breath walking around without any difficulty. Medications: Reviewed: Yes Vitals/I&O/Wt Last Vital Signs Temp 98.2 F 01/07/21 10:49 Pulse 64 01/07/21 10:49 Resp 15 01/07/21 10:49 BP 146/91 01/07/21 10:49 Pulse Ox 96 01/07/21 10:49 01/06/21 01/07/21 01/07/21 22:59 06:59 14:59 Intake Total 370 / 970 150 / 1120 720 / 720 Output Total 1720 / 2570 Balance -1350 / -1600 150 / -1450 720 / 720 Weight last 48 hrs Weight 210 lb 8 oz Physical Exam Narrative: EXAM NARRATIVE: GENERAL: Patient is alert, awake and oriented x3. NECK: No jugular vein distension. HEENT: No cyanosis. No icterus. No pallor. HEART: Regular S1 and S2. No murmur, rub or gallop. LUNGS: No crepitus bilaterally. ABDOMEN: Soft, nontender and nondistended. Positive bowel sounds. No guarding, rebound or tenderness. CENTRAL NERVOUS SYSTEM: Grossly nonfocal. EXTREMITIES: Lower extremities with edema bilaterally. Data : 01/07/21 05:11 01/07/21 05:11 A&P Assessment and plan (1) Non-ST elevation [place] (NSTEMI): Patient is stable after optimization of medicine he is euvolemic denies any chest pain. Continue Plavix for 1 year he would like to be treated medically and I agree with him due to his underlying comorbidities including chronic kidney disease stage III-IV. We therefore will be continuing medical management. Patient can be discharged today and see us in clinic as advised Status: Acute (2) Acute exacerbation of CHF (congestive heart failure): Well compensated. Patient will be switched to oral medicine Status: Acute Qualifiers: Heart failure type: systolic Qualified Code(s): I50.23 - Acute on chronic systolic (congestive) heart failure (3) History of endovascular stent graft for abdominal aortic aneurysm (AAA): Appear to be stable. 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
--- NOTE | 2021-01-07 13:10 | P.DS_ITS ---
Discharge Providers Date of Admission: 01/04/21 17:14 Date of Discharge: January 07, 2021 Attending Provider at Admission: Jhonathan Bowman Attending Provider at Discharge: Braydon Ward MD Consults: Cardiology: Dr. Siddiqui Primary Care Provider: KASHMIR Krueger Diagnoses at Discharge Discharge Diagnosis (1) Non-ST elevation MS (NSTEMI): Status: Acute (2) CHF (congestive heart failure): Status: Chronic Qualifiers: Heart failure chronicity: acute on chronic Heart failure type: unspecified Qualified Code(s): I50.9 - Heart failure, unspecified (3) COPD (chronic obstructive pulmonary disease): Status: Chronic Qualifiers: COPD type: emphysema Emphysema type: panlobular Qualified Code(s): J43.1 - Panlobular emphysema (4) Chronic kidney disease, stage III (moderate): Status: Acute (5) Tobacco abuse: Status: Acute (6) D-dimer, elevated: Status: Acute (7) Hypercalcemia: Status: Acute (8) Elevated lipase: Status: Acute (9) Bradycardia, sinus: Status: Acute Reason for Visit Reason for Visit: Suspects heart attack Hospital Course Hospital Course Zak Gibbs is a 76 year old male past medical history significant for extensive coronary artery disease status [place] [facility] [place] peripheral vascular disease status post AAA repair, history of renal stenosis and percutaneous intervention to renal artery, history of congestive heart failure, history of chronic kidney disease with baseline creatinine around 2.0, systolic heart failure, hypertension hyperlipidemia presented to ER with worsening of chest pain shortness of breath PND orthopnea. Cardiac markers were consistent with non-ST elevation MS with troponin more than 400. Patient left hospital AGAINST MEDICAL ADVICE yesterday when he was admitted for non-ST elevation MS and CHF exacerbation. He was under the hospital for symptoms of exacerbation of congestive heart failure and non-ST elevation MS. Cardiology was consulted. Patient was aggressively diuresed with IV Lasix. He responded well to the treatment and is overall 6 L negative since the day of admission. Patient seems to be back to his baseline and has been saturating well on rest, ambulation on room air. He is able to sleep again back in bed without any difficulty in breathing. During hospitalization patient did not have any repeat chest pain. Since patient has been doing well on optimization of medications along with multiple comorbidities including CKD with baseline creatinine of 2, high risk of bleeding it was decided to manage patient with medical optimization versus invasive strategy until illness it was absolutely necessary with symptoms of worsening heart failure or increased ischemia burden. His cardiac medications are further optimized. He is been discharged hemodynamically stable condition advised to follow-up with cardiology in 1 month. He is advised to take low-salt low-fat diet. Monitor his intake and output at home and maintain a blood pressure diary. His care was discussed in detail with both this was at bedside and patient himself and they agree and verbalized understanding. Patient states that going forward he would like to follow-up with Dr. Siddiqui as an outpatient. After discussing with Dr. Siddiqui appointment has been made for him to be seen as an outpatient as well. Physical Exam Narrative: EXAM NARRATIVE: GENERAL: Patient is alert, awake and oriented x3. NECK: No jugular vein distension. HEENT: No cyanosis. No icterus. No pallor. HEART: Regular S1 and S2. No murmur, rub or gallop. LUNGS: No crepitus bilaterally. ABDOMEN: Soft, nontender and nondistended. Positive bowel sounds. No guarding, rebound or tenderness. CENTRAL NERVOUS SYSTEM: Grossly nonfocal. EXTREMITIES: Lower extremities with edema bilaterally. Discharge Data Data Completed and Pending: Completed Studies During Hospitalization Category Date Time Status XR chest 1V pola ble [id number] Stat Exams 01/04/21 13:39 Completed NM pul vent and p erfus* [id number] Stat Nuc Med 01/04/21 15:45 [place] [id number] Routin e Ultrasound 01/06/21 18:00 Completed Pending at discharge Category Date Time Status Sputum Culture an d Gram Stain Routi ne Lab 01/04/21 18:39 Uncollected Labs from last 24 hours 01/07/21 01/07/21 05:11 05:11 WBC 9.7 RBC 4.68 Hgb 13.7 Hct 42.4 MCV 90.6 MCH 29.3 MCHC 32.3 RDW 15.9 H Plt Count 343 MPV 10.1 Neut % (Auto) 74.8 Lymph % (Auto) 15.1 [place] % (Auto) 8.2 Eos % (Auto) 0.1 Baso % (Auto) 0.2 Neut # (Auto) 7.27 Lymph # (Auto) 1.5 [place] # (Auto) 0.8 Eos # (Auto) 0.0 Baso # (Auto) 0.0 Nucleated RBC % (a uto) 0 Nucleated RBCs # 0.0 Sodium 137 Potassium 3.5 Chloride 95 L Carbon Dioxide 28 Anion Gap 17.5 BUN 62 H Creatinine 2.3 H GFR Calculation Not Reportable Glucose 115 Calculated Osmolal ity 303 H Calcium 10.9 H Vitals: Last Vital Signs Temp 98.2 F 01/07/21 10:49 Pulse 64 01/07/21 10:49 Resp 15 01/07/21 10:49 BP 146/91 01/07/21 10:49 Pulse Ox 96 01/07/21 10:49 Discharge Plan Discharge Patient Disposition: Home Condition: Stable Prescriptions: New clopidogrel 75 mg Tablet 75 mg PO DAILY Qty: 90 RF: 3 metoprolol tartrate 25 mg Tablet 12.5 mg PO BID@0900,2100 Qty: 60 RF: 4 Continued nitroglycerin [Nitrostat] 0.4 mg tablet, sublingual 0.4 mg SUBLINGUAL Q5M PRN (Reason: chest pain) Qty: 25 RF: 5 amlodipine [Norvasc] 10 mg tablet 10 mg PO DAILY Qty: 30 RF: 2 budesonide-formoterol [Symbicort] 160-4.5 mcg/actuation HFA aerosol inhaler 2 puff INHALATION Q12H Qty: 10.2 RF: 2 metolazone 2.5 mg tablet 2.5 mg PO DAILY PRN (Reason: edema) Qty: 14 RF: 0 aspirin 81 mg Tablet,Chewable 81 mg PO DAILY@08 RF: 0 furosemide 40 mg tablet 40 mg PO BID@,17 RF: 0 Pepcid 40 mg tablet 40 mg PO BID@, RF: 0 isosorbide mononitrate 60 mg tablet extended release 24 hr 60 mg PO BID@, RF: 0 hydralazine 50 mg tablet 50 mg PO TID@,,18 RF: 0 cholecalciferol (vitamin D3) 125 mcg (5,000 unit) capsule 125 mcg PO DAILY@1700 RF: 0 Tricor 145 mg tablet 145 mg PO DAILY@22 RF: 0 Discontinued metoprolol tartrate 75 mg tablet 75 mg PO Q12H RF: 0 Discharge Orders: Discharge Order (Routine); Ordered 01/07/21 Ordered By: Braydon Ward Referrals: Glenys Portillo FNP-C [Primary Care Provider] - 01/14/21 10:00 am (You have a hospital followup with KASHMIR Manuel at [facility] on January 14 at 10:00am) Pancho Siddiqui MD [Physician] - 02/11/21 3:00 pm (You have a cardiology followup with Dr. Siddiqui at [facility] on February 11 at 3:00pm) Corrina Cabrera FNP [Nurse Practitioner] - 01/14/21 2:30 pm (You have an appointment with MOON Kwan at [facility] on January 14 at 2:30pm) Discharge Diet: Cardiac and Low Salt Discharge Activity: Resume usual activity Patient Instructions: Metoprolol (By mouth), Clopidogrel (By mouth) Activity Restrictions/Additional Instructions: Follow-up with Corrina Cabrera in 7 days, follow-up with Dr. Siddiqui in 1 month Discharge Attestations Time Spent in Discharge Care*: greater than 30 min Specific Discharge Activities: educating patient, educating and/or supporting family/caregiver, discussing with pcp/other providers, documenting/other paperwork and evaluating patient/reviewing data Status at Discharge: Cognitive status at discharge: cognitively intact , Behavioral status at discharge: cooperative , Functional status at discharge: independent ambulation Overall status at discharge: patient is back to baseline Quality Metrics Clinical Quality Measures During this hospital stay, did patient experience: None Coding Level of Care Code 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
--- NOTE | 2021-01-07 16:55 | PC.RESP ---
SMOKING CESSATION AND PULMONARY REHAB INFORMATION SENT TO PATIENT.
== END 2021-01-07 13:34 | disposition home or self-care (01) | DRG 280 ==
LOC: ER 13:50 → CSU 17:34
PROVIDERS: Internal Medicine; Admitting Provider Internal Medicine; Emergency Provider Family Medicine; PCP Nurse Practitioner; Visit Provider Student in an Organized Health Care Education/Training Program
DX: I21.4 Non-ST elevation (NSTEMI) myocardial infarction (principal); I50.43 Acute on chronic combined systolic (congestive) and diastolic (congestive) heart failure; I13.0 Hypertensive heart and chronic kidney disease with heart failure and stage 1 through stage 4 chronic kidney disease, or unspecified chronic kidney disease; I25.10 Atherosclerotic heart disease of native coronary artery without angina pectoris; Z95.1 Presence of aortocoronary bypass graft; I25.2 Old myocardial infarction; I35.0 Nonrheumatic aortic (valve) stenosis; N18.30 Chronic kidney disease, stage 3 unspecified; E11.22 Type 2 diabetes mellitus with diabetic chronic kidney disease; J43.9 Emphysema, unspecified; E78.5 Hyperlipidemia, unspecified; F17.210 Nicotine dependence, cigarettes, uncomplicated; E55.9 Vitamin D deficiency, unspecified; Z85.038 Personal history of other malignant neoplasm of large intestine; Z85.51 Personal history of malignant neoplasm of bladder; E83.52 Hypercalcemia; Z95.828 Presence of other vascular implants and grafts
CPT/HCPCS: 12345; 36415; 71045; 78014; 80048; 80053; 82330; 82803; 83605; 83690; 83735; 83880; 84100; 84132; 84145; 84443; 84484; 85025; 85378; 85610; 85730; 86140; 87426; 87804; 93005; 93306; 93970; 94640; 94664; 96372; 99282; 99283; A9540; A9567; J1644; J1650; J1940; J3490; J7512

== ENCOUNTER → 2021-01-21 13:42 | Outpatient (BNVA) | payer MEDICARE, SELFPAY | PROVIDERS: PCP Nurse Practitioner; Visit Provider Nurse Practitioner | DX: I10 Essential (primary) hypertension (principal); K21.9 Gastro-esophageal reflux disease without esophagitis; E78.5 Hyperlipidemia, unspecified; Z95.1 Presence of aortocoronary bypass graft; J43.1 Panlobular emphysema; I21.4 Non-ST elevation (NSTEMI) myocardial infarction; E11.65 Type 2 diabetes mellitus with hyperglycemia | CPT/HCPCS: 80053 ==

== ENCOUNTER → 2021-01-28 10:46 | Outpatient (BNVA) | payer MEDICARE, SELFPAY | PROVIDERS: PCP Nurse Practitioner; Visit Provider Nurse Practitioner | DX: J43.1 Panlobular emphysema (principal); E11.65 Type 2 diabetes mellitus with hyperglycemia; E87.6 Hypokalemia | CPT/HCPCS: 80048; 83036; 85025 ==

== ENCOUNTER → 2021-01-31 09:50 | Outpatient (BNVA) | payer MEDICARE, SELFPAY | PROVIDERS: PCP Nurse Practitioner; Visit Provider Nurse Practitioner | DX: E87.6 Hypokalemia (principal) | CPT/HCPCS: 80048 ==

== ENCOUNTER → 2021-02-07 09:58 | Outpatient (BNVA) | payer MEDICARE, SELFPAY | PROVIDERS: PCP Nurse Practitioner; Visit Provider Nurse Practitioner | DX: E87.6 Hypokalemia (principal); Z01.89 Encounter for other specified special examinations | CPT/HCPCS: 80048 ==

== ENCOUNTER → 2021-02-12 09:45 | Outpatient (BNVA) | payer MEDICARE, SELFPAY | PROVIDERS: PCP Nurse Practitioner; Visit Provider Nurse Practitioner | DX: E87.6 Hypokalemia (principal) | CPT/HCPCS: 80048 ==

== ENCOUNTER → 2021-02-19 09:42 | Outpatient (BNVA) | payer SELFPAY | PROVIDERS: PCP Nurse Practitioner; Visit Provider Dermatology | DX: Z01.89 Encounter for other specified special examinations (principal) ==

== ENCOUNTER 2021-04-01 08:09 | Inpatient (IN) | payer MEDICARE, SELFPAY ==
[2021-04-01] VITALS (13 sets, daily range): BP systolic 147–174; BP diastolic 59–87; PULSE 48–76; RESP 16–28; TEMP 36.3–36.5; O2SAT 92–95; BMI 25.4
--- NOTE | 2021-04-01 08:20 | ECG_ITS ---
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 Measurements Intervals Jayess Rate: 53 P: ND: QRS: -37 QRSD: 171 T: 135 QT: 512 QTc: 482 Interpretive Statements ATRIAL FIBRILLATION WITH SLOW VENTRICULAR RESPONSE LEFT AXIS DEVIATION [QRS AXIS < -30] INTRAVENTRICULAR CONDUCTION DELAY [130+ ms QRS DURATION] PROBABLE LATERAL MYOCARDIAL INFARCTION , OF INDETERMINATE AGE [35 ms Q WAVE IN I/aVL/V5/V6] Compared to ECG 01/06/2021 08:42:00 Intraventricular conduction delay now present Myocardial infarct finding now present Left bundle-branch block no longer present Electronically Signed On 04-03-2021 7:58:39 CDT by Igor Wright M.D. [id number]
--- NOTE | 2021-04-01 08:20 | XRR_ITS ---
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 Er physician findings: R middle lobe pneumonia, ? ? ? R hilar mass TECHNIQUE: Imaging protocol: XR of the chest. Views: 1 view. COMPARISON: CR XR chest 1V portable [id number] 01/04/2021 1:40 PM FINDINGS: Lungs: There is right basilar pulmonary consolidation consistent with pneumonia. The right pulmonary hilum is prominent. The left lung is clear. Pleural spaces: There is slight blunting of the right costophrenic angle which may indicate a small effusion. No pneumothorax is seen. Heart/Mediastinum: Unremarkable. No cardiomegaly. Bones/joints: Unremarkable. XR/XR chest 1V portable [id number] IMPRESSION: 1. Prominent right basilar consolidation consistent with pneumonia. 2. Right pulmonary hilar prominence. A right hilar mass cannot be excluded so that a CT scan is advised for further evaluation.
--- NOTE | 2021-04-01 08:22 | W.ED.CHESTPA ---
Documented by User: MOON Nowak 04/01/21 09:35 HPI - Chest Pain General: Chief Complaint: Arrhythmia/Palpitations Stated Complaint: HEART ISSUES Time Seen by Provider: 04/01/21 08:20 History of Present Illness: HPI narrative: 76-year-old male patient comes in today with complaints of chest discomfort last night. Patient also reports abdominal discomfort and constipation. Patient reports his last bowel movement was 2 days ago. Patient states that last night he had an episode of chest discomfort but has been having chest pain on and off for over a month now. Patient is waiting to get a stress test done through Dr. Siddiqui in cardiology. Patient was last seen by his office on March 11. Patient states that the nitroglycerin that he takes as needed takes care of his chest pain and he has not had any today. Patient reports that he has some bowel discomfort due to not having a bowel movement. 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 Patient chronic medical history includes COPD, coronary artery disease, chronic kidney disease, CHF, aortic stenosis, abdominal aortic aneurysm, renal artery stenosis, hypertension, and type 2 diabetes. MD complaint: chest pain Timing of current episode: episodic and now resolved Onset: during rest Pain location: substernal Pain radiation: none Severity: moderate Quality: tightness Relieving factors: nitroglycerin Exacerbating factors: nothing Associated symptoms: Reports abdominal pain Review of Systems General: Reports: 10 or more systems reviewed and unremarkable except in HPI and below Card: Reports: chest pain GI: Reports: abdominal pain and constipation PFS ED PFSH: Medical History Abdominal aortic aneurysm (AAA) Aortic stenosis, mild Carotid stenosis CHF (congestive heart failure) Chronic kidney disease, stage III (moderate) COPD (chronic obstructive pulmonary disease) D-dimer, elevated Dyslipidemia Elevated lipase Gastric reflux History of colon cancer 2014 Hx of primary malignant neoplasm of urinary bladder Hypercalcemia Hypertension Occlusion of right internal carotid artery Pulmonary emphysema Renal artery stenosis Tobacco abuse Type 2 diabetes mellitus Vitamin D deficiency Surgical History Aortocoronary bypass status History of carotid artery stenosis History of endovascular stent graft for abdominal aortic aneurysm (AAA) History of fracture of right shoulder 3 times surgery- bone repair with screws and anchor History of partial colectomy History of procedure for peripheral vascular disease Right leg History of stent insertion of renal artery Status post four vessel coronary artery bypass (~02/2014) Family History Family/Other Diabetes Hypertension CAD (coronary artery disease) Social History Smoking and tobacco status: current every day smoker Second hand smoke exposure: Yes Smoking risk assessment/counseling performed?: Yes Alcohol intake: current Desire information about alcohol rehabilitation?: No Counseling given: No Desire information about substance/drug rehabilitation?: No Counseling given: No Adopted: No Caregiver/support person: No Lives independently: Yes Household members: spouse Housing: House Marital status: service: No Current occupational status: retired History of recent travel: No Current gender identity: Male Physical Exam Const: COMMON NORMALS: no acute distress and patient oriented x3 GENERAL APPEARANCE: cooperative HENMT: COMMON NORMALS: normocephalic and Normal external nose present HEAD & SCALP: normal to inspection and normocephalic NOSE: Normal external nose present MOUTH: Normal oral and palatal mucosa present Eye: GENERAL EYE: appearance normal, both eyes and all related structures Neck/C-Spine: COMMON NORMALS: full ROM Chest: COMMONS NORMALS: normal inspection of the chest Resp: COMMON NORMALS: normal respiratory effort EFFORT & INSPECTION: Yes able to speak in complete sentences Cardio: COMMON NORMALS: regular rate and regular rhythm RATE: regular rate RHYTHM: regular rhythm GI: COMMON NORMALS: Soft to palpation PALPATION: Yes Soft to palpation and Yes Tenderness to palpation present (GI) (mild general) Back/Pelvis: COMMON NORMALS: thoracic and lumbar spine normal to inspection Extremity: COMMON NORMALS: normal to inspection Neuro: COMMON NORMALS: patient oriented x3 and moves all extremities Psych: COMMON NORMALS: mental status grossly normal and cooperative Skin: COMMON NORMALS: no rashes or lesions noted GENERAL SKIN EXAM: no rashes or lesions noted Course ED course: 845, discussed with chest x-ray with consolidation in the right middle lung field which may be possible obstructive in nature he recommended CT scan of the chest to rule out mass, we will add that to his CT of the abdomen pelvis for concerns of obstruction due to changes in bowels and abdominal pain. 920, Dr. Samson assumed care of patient for admission of to hospital. Vital Signs: Vital signs: Vital Signs Temperature 97.3 F L 04/01/21 08:11 Pulse Rate 53 L 04/01/21 12:18 Respiratory Rate 18 04/01/21 12:18 Blood Pressure 159/87 04/01/21 12:18 Pulse Oximetry 95 04/01/21 12:18 MDM - Chest Pain Lab Data: Labs: Lab Results 04/01/21 04/01/21 04/01/21 Range/Units 08:29 08:29 08:29 WBC 8.9 (4.0-10.0) 10^3/ uL RBC 4.61 (4.1-5.3) 10^6/u L Hgb 13.3 (11.7-16.6) g/dL Hct 41.7 L (42.0-52.0) % MCV 90.5 (80-94) fL MCH 28.9 (28.0-34.0) pg MCHC 31.9 (30.0-36.0) g/dL RDW 16.0 H (12.1-15.1) % Plt Count 229 (130-400) 10^3/c mm MPV 10.0 (7.4-10.4) fL Neut % (Auto) 69.5 % Lymph % (Auto) 19.2 % Benzie % (Auto) 9.3 % Eos % (Auto) 1.0 % Baso % (Auto) 0.4 % Neut # (Auto) 6.17 (1.8-7.7) 10^3/u L Lymph # (Auto) 1.7 (0.8-4.8) 10^3/u L Benzie # (Auto) 0.8 (0.2-0.9) 10^3/u L Eos # (Auto) 0.1 (0.0-0.8) 10^3/u L Baso # (Auto) 0.0 (0.0-0.1) 10^3/u L Nucleated RBC % (a uto) 0 % Nucleated RBCs # 0.0 /100WBC Sodium 136 (136-145) mmol/L Potassium 2.7 L* (3.5-5.1) mmol/L Chloride 96 L (98-107) mmol/L Carbon Dioxide 26 (22-29) mmol/L Anion Gap 16.7 (5-19) BUN 23 (8-23) mg/dL Creatinine 1.4 H (0.7-1.2) mg/dL GFR Calculation Not Reportable Glucose 141 H (65-115) mg/dL Calculated Osmolal ity 288 (285-295) mOsm/k g Calcium 9.8 (8.5-10.5) mg/dL Total Bilirubin 1.0 (0.15-1.2) mg/dL AST 19 (0-40) U/L ALT 11 (0-41) U/L Alkaline Phosphata se 51 (40-130) IU/L Troponin T Baselin e 61 H (0-15) ng/L Troponin T 120 Min [place] (0-15) ng/L Delta Troponin T (0-10) ABS# NT-Pro-B Natriuret Pep 8263 H (0-450) pg/mL Total Protein 6.5 L (6.6-8.7) g/dL Albumin 4.0 (3.5-5.2) g/dL Globulin 2.5 (1.3-4.6) g/dL Urine Color (Yellow) Urine Appearance (CLEAR) Urine pH (5-7) Ur Specific Gravit y (1.005-1.030) Urine Protein (Negative) Urine Glucose (UA) (Normal) Urine Ketones (Negative) Urine Blood (Negative) Urine Nitrate (Negative) Urine Bilirubin (Negative) Urine Urobilinogen (Negative) mg/dL Ur Leukocyte Dariana ase (Negative) 04/01/21 04/01/21 Range/Units 10:28 11:15 WBC (4.0-10.0) 10^3/ uL RBC (4.1-5.3) 10^6/u L Hgb (11.7-16.6) g/dL Hct (42.0-52.0) % MCV (80-94) fL MCH (28.0-34.0) pg MCHC (30.0-36.0) g/dL RDW (12.1-15.1) % Plt Count (130-400) 10^3/c mm MPV (7.4-10.4) fL Neut % (Auto) % Lymph % (Auto) % Benzie % (Auto) % Eos % (Auto) % Baso % (Auto) % Neut # (Auto) (1.8-7.7) 10^3/u L Lymph # (Auto) (0.8-4.8) 10^3/u L Benzie # (Auto) (0.2-0.9) 10^3/u L Eos # (Auto) (0.0-0.8) 10^3/u L Baso # (Auto) (0.0-0.1) 10^3/u L Nucleated RBC % (a uto) % Nucleated RBCs # /100WBC Sodium (136-145) mmol/L Potassium (3.5-5.1) mmol/L Chloride (98-107) mmol/L Carbon Dioxide (22-29) mmol/L Anion Gap (5-19) BUN (8-23) mg/dL Creatinine (0.7-1.2) mg/dL GFR Calculation Glucose (65-115) mg/dL Calculated Osmolal ity (285-295) mOsm/k g Calcium (8.5-10.5) mg/dL Total Bilirubin (0.15-1.2) mg/dL AST (0-40) U/L ALT (0-41) U/L Alkaline Phosphata se (40-130) IU/L Troponin T Baselin e (0-15) ng/L Troponin T 120 Min [place] 63.53 H (0-15) ng/L Delta Troponin T 2.53 (0-10) ABS# NT-Pro-B Natriuret Pep (0-450) pg/mL Total Protein (6.6-8.7) g/dL Albumin (3.5-5.2) g/dL Globulin (1.3-4.6) g/dL Urine Color Yellow (Yellow) Urine Appearance Clear (CLEAR) Urine pH 7 (5-7) Ur Specific Gravit y 1.005 (1.005-1.030) Urine Protein Neg (Negative) Urine Glucose (UA) Norm (Normal) Urine Ketones Negative (Negative) Urine Blood Neg (Negative) Urine Nitrate Negative (Negative) Urine Bilirubin Neg (Negative) Urine Urobilinogen Norm (Negative) mg/dL Ur Leukocyte Dariana ase Negative (Negative) Discharge Plan Discharge Patient Disposition: Admitted As Inpatient Admit Provider: Benitez Sarmiento Clinical Impression: Postobstructive pneumonia, Hypertension, COPD (chronic obstructive pulmonary disease), Hilar mass, Chest pain Condition: Stable Coding Level of Care Code ED Music Professor for Chg Fwd Exam Comprehensive Documented by User: Kang Samson DO 04/01/21 12:26 HPI - Chest Pain General: Chief Complaint: Arrhythmia/Palpitations Stated Complaint: HEART ISSUES Time Seen by Provider: 04/01/21 08:20 History of Present Illness: HPI narrative: 76-year-old male presents emergency room with complaint of shortness of breath cough is minimally productive. He has chest pain with an irregular heartbeat he is taken some nitro and has relief of it. He is supposed to be scheduled for stress test. He is also has some abdominal pain although he has not had any vomiting his last bowel movement was 2 days ago. He denies any hemoptysis denies any purulence productive cough. MD complaint: chest pain and chest discomfort Pertinent past history: coronary artery disease Onset (ago): day(s) Timing of current episode: episodic Prior episodes: Yes Onset: during rest and during exertion Pain location: left chest Severity: moderate Quality: tightness, aching and heaviness Relieving factors: nitroglycerin Exacerbating factors: nothing Associated symptoms: Reports abdominal pain, diaphoresis, dyspnea, nausea and palpitations; Deny fever(s), leg edema, sense of impending doom, syncope or vomiting Treatment prior to arrival: nitroglycerin Review of Systems Const: Reports: diaphoresis; Denies: fever(s) ENMT: Denies: throat pain, ear or mastoid pain, nasal discharge or nasal congestion Card: Reports: palpitations; Denies: syncope Resp: Reports: dyspnea GI: Reports: abdominal pain and nausea; Denies: vomiting : Denies: flank pain, dysuria, urinary frequency or urinary urgency Skin/Breast: Denies: rash or pruritus PFS ED PFSH: Medical History Abdominal aortic aneurysm (AAA) Aortic stenosis, mild Carotid stenosis CHF (congestive heart failure) Chronic kidney disease, stage III (moderate) COPD (chronic obstructive pulmonary disease) D-dimer, elevated Dyslipidemia Elevated lipase Gastric reflux History of colon cancer 2014 Hx of primary malignant neoplasm of urinary bladder Hypercalcemia Hypertension Occlusion of right internal carotid artery Pulmonary emphysema Renal artery stenosis Tobacco abuse Type 2 diabetes mellitus Vitamin D deficiency Surgical History Aortocoronary bypass status History of carotid artery stenosis History of endovascular stent graft for abdominal aortic aneurysm (AAA) History of fracture of right shoulder 3 times surgery- bone repair with screws and anchor History of partial colectomy History of procedure for peripheral vascular disease Right leg History of stent insertion of renal artery Status post four vessel coronary artery bypass (~02/2014) Family History Family/Other Diabetes Hypertension CAD (coronary artery disease) Social History Smoking and tobacco status: current every day smoker Second hand smoke exposure: Yes Smoking risk assessment/counseling performed?: Yes Alcohol intake: current Desire information about alcohol rehabilitation?: No Counseling given: No Desire information about substance/drug rehabilitation?: No Counseling given: No Adopted: No Caregiver/support person: No Lives independently: Yes Household members: spouse Housing: House Marital status: service: No Current occupational status: retired History of recent travel: No Current gender identity: Male Physical Exam Const: COMMON NORMALS: no acute distress GENERAL APPEARANCE: cooperative and comfortable ORIENTATION/CONSCIOUSNESS: Yes awake, Yes oriented to person, Yes oriented to place and Yes oriented to time HENMT: COMMON NORMALS: normocephalic, atraumatic and hearing grossly normal bilaterally HEAD & SCALP: normocephalic and atraumatic Neck/C-Spine: COMMON NORMALS: no JVD Resp: COMMON NORMALS: normal respiratory effort, No retractions, No use of accessory muscles and clear to auscultation bilaterally AUSCULTATION: clear to auscultation bilaterally Cardio: COMMON NORMALS: no JVD, regular rate, regular rhythm and No murmurs present (Cardio) RATE: regular rate RHYTHM: regular rhythm GI: COMMON NORMALS: Soft to palpation and No hepatosplenomegaly present AUSCULTATION: Yes normoactive bowel sounds PALPATION: Yes Soft to palpation, No Tenderness to palpation present (GI), No Guarding due to palpation present (GI) and Yes No hepatosplenomegaly present Extremity: COMMON NORMALS: normal to inspection, capillary refill normal, no clubbing, cyanosis or edema, no calf tenderness and no pedal edema Neuro: SENSORIUM/ORIENTATION: Yes oriented to person, Yes oriented to place and Yes oriented to time Skin: COMMON NORMALS: no rashes or lesions noted GENERAL SKIN EXAM: no rashes or lesions noted Course Vital Signs: Vital signs: Vital Signs Temperature 97.3 F L 04/01/21 08:11 Pulse Rate 53 L 04/01/21 12:18 Respiratory Rate 18 04/01/21 12:18 Blood Pressure 159/87 04/01/21 12:18 Pulse Oximetry 95 04/01/21 12:18 MDM - Chest Pain MDM Narrative: Medical decision making narrative: Reviewed x-rays discussed case with Erlin Alvarez. 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 Garay antibiotics have been admitted will admit for antibiotics treatment possible biopsy. Lab Data: Labs: Lab Results 04/01/21 04/01/21 04/01/21 Range/Units 08:29 08:29 08:29 WBC 8.9 (4.0-10.0) 10^3/ uL RBC 4.61 (4.1-5.3) 10^6/u L Hgb 13.3 (11.7-16.6) g/dL Hct 41.7 L (42.0-52.0) % MCV 90.5 (80-94) fL MCH 28.9 (28.0-34.0) pg MCHC 31.9 (30.0-36.0) g/dL RDW 16.0 H (12.1-15.1) % Plt Count 229 (130-400) 10^3/c mm MPV 10.0 (7.4-10.4) fL Neut % (Auto) 69.5 % Lymph % (Auto) 19.2 % Benzie % (Auto) 9.3 % Eos % (Auto) 1.0 % Baso % (Auto) 0.4 % Neut # (Auto) 6.17 (1.8-7.7) 10^3/u L Lymph # (Auto) 1.7 (0.8-4.8) 10^3/u L Benzie # (Auto) 0.8 (0.2-0.9) 10^3/u L Eos # (Auto) 0.1 (0.0-0.8) 10^3/u L Baso # (Auto) 0.0 (0.0-0.1) 10^3/u L Nucleated RBC % (a uto) 0 % Nucleated RBCs # 0.0 /100WBC Sodium 136 (136-145) mmol/L Potassium 2.7 L* (3.5-5.1) mmol/L Chloride 96 L (98-107) mmol/L Carbon Dioxide 26 (22-29) mmol/L Anion Gap 16.7 (5-19) BUN 23 (8-23) mg/dL Creatinine 1.4 H (0.7-1.2) mg/dL GFR Calculation Not Reportable Glucose 141 H (65-115) mg/dL Calculated Osmolal ity 288 (285-295) mOsm/k g Calcium 9.8 (8.5-10.5) mg/dL Total Bilirubin 1.0 (0.15-1.2) mg/dL AST 19 (0-40) U/L ALT 11 (0-41) U/L Alkaline Phosphata se 51 (40-130) IU/L Troponin T Baselin e 61 H (0-15) ng/L Troponin T 120 Min [place] (0-15) ng/L Delta Troponin T (0-10) ABS# NT-Pro-B Natriuret Pep 8263 H (0-450) pg/mL Total Protein 6.5 L (6.6-8.7) g/dL Albumin 4.0 (3.5-5.2) g/dL Globulin 2.5 (1.3-4.6) g/dL Urine Color (Yellow) Urine Appearance (CLEAR) Urine pH (5-7) Ur Specific Gravit y (1.005-1.030) Urine Protein (Negative) Urine Glucose (UA) (Normal) Urine Ketones (Negative) Urine Blood (Negative) Urine Nitrate (Negative) Urine Bilirubin (Negative) Urine Urobilinogen (Negative) mg/dL Ur Leukocyte Dariana ase (Negative) 04/01/21 04/01/21 Range/Units 10:28 11:15 WBC (4.0-10.0) 10^3/ uL RBC (4.1-5.3) 10^6/u L Hgb (11.7-16.6) g/dL Hct (42.0-52.0) % MCV (80-94) fL MCH (28.0-34.0) pg MCHC (30.0-36.0) g/dL RDW (12.1-15.1) % Plt Count (130-400) 10^3/c mm MPV (7.4-10.4) fL Neut % (Auto) % Lymph % (Auto) % Benzie % (Auto) % Eos % (Auto) % Baso % (Auto) % Neut # (Auto) (1.8-7.7) 10^3/u L Lymph # (Auto) (0.8-4.8) 10^3/u L Benzie # (Auto) (0.2-0.9) 10^3/u L Eos # (Auto) (0.0-0.8) 10^3/u L Baso # (Auto) (0.0-0.1) 10^3/u L Nucleated RBC % (a uto) % Nucleated RBCs # /100WBC Sodium (136-145) mmol/L Potassium (3.5-5.1) mmol/L Chloride (98-107) mmol/L Carbon Dioxide (22-29) mmol/L Anion Gap (5-19) BUN (8-23) mg/dL Creatinine (0.7-1.2) mg/dL GFR Calculation Glucose (65-115) mg/dL Calculated Osmolal ity (285-295) mOsm/k g Calcium (8.5-10.5) mg/dL Total Bilirubin (0.15-1.2) mg/dL AST (0-40) U/L ALT (0-41) U/L Alkaline Phosphata se (40-130) IU/L Troponin T Baselin e (0-15) ng/L Troponin T 120 Min [place] 63.53 H (0-15) ng/L Delta Troponin T 2.53 (0-10) ABS# NT-Pro-B Natriuret Pep (0-450) pg/mL Total Protein (6.6-8.7) g/dL Albumin (3.5-5.2) g/dL Globulin (1.3-4.6) g/dL Urine Color Yellow (Yellow) Urine Appearance Clear (CLEAR) Urine pH 7 (5-7) Ur Specific Gravit y 1.005 (1.005-1.030) Urine Protein Neg (Negative) Urine Glucose (UA) Norm (Normal) Urine Ketones Negative (Negative) Urine Blood Neg (Negative) Urine Nitrate Negative (Negative) Urine Bilirubin Neg (Negative) Urine Urobilinogen Norm (Negative) mg/dL Ur Leukocyte Dariana ase Negative (Negative) Discharge Plan Discharge Patient Disposition: Admitted As Inpatient Admit Provider: Benitez Sarmiento Clinical Impression: Postobstructive pneumonia, Hypertension, COPD (chronic obstructive pulmonary disease), Hilar mass, Chest pain Condition: Stable Coding Level of Care Code ED Music Professor for Galeng Fwd Exam Comprehensive
[2021-04-01 08:36] LABS: Basophils % 0.4 %; Eosinophils # 0.1 10^3/uL (0.0-0.8); Hematocrit 41.7 % (42.0-52.0); Hemoglobin 13.3 g/dL (11.7-16.6); Lymphocytes # 1.7 10^3/uL (0.8-4.8); Lymphocytes % 19.2 %; Mean Corpuscular HGB Conc 31.9 g/dL (30.0-36.0); Mean Corpuscular Hemoglobin 28.9 pg (28.0-34.0); Mean Corpuscular Volume 90.5 fL (80-94); Monocytes # 0.8 10^3/uL (0.2-0.9); Monocytes % 9.3 %; Neutrophils # 6.17 10^3/uL (1.8-7.7); Neutrophils % 69.5 %; Nucleated Red Blood Cells % 0 %; Platelet Count 229 10^3/cmm (130-400); Red Blood Count 4.61 10^6/uL (4.1-5.3); White Blood Count 8.9 10^3/uL (4.0-10.0)
--- NOTE | 2021-04-01 08:44 | CT_ITS ---
WS: [id number] CT CHEST, ABDOMEN AND PELVIS WITH CONTRAST. HISTORY: possible lung mass, bowel obstruction TECHNIQUE: Contiguous 5 mm axial imaging performed through the chest, abdomen and pelvis with IV cont rast, oral contrast has not been provided. Coronal and sagittal reformats chest. Coronal and sagittal reformats through the abdomen and pelvis. All CT scans at [facility] use at least one of these dose optimization techniques: automated exposure control; mA and/or kV adjustment per patient size (includes targeted exams where dose is matched to clinical indication); or iterative reconstruct ion. CONTRAST: Visipaque 320; 95 mL IV. DLP: 2300.03 mGy.cm COMPARISON: 11/17/2018, 09/28/[address]: Hyperexpanded lungs. Dense consolidation centered at the RIGHT hilum extends into the RIGHT lower lobe corresponds to the abnormality seen on the chest radiograph. This is a dense consolidated soft tissue mass which is contiguous with RIGHT hilar and mediastinal adenopathy. There are multifoc al satellite lesions extending into the RIGHT lower lobe with fluid and or soft tissue thickening monika ng the major fissure. Additional soft tissue nodularity in the RIGHT middle lobe extending along the pleura. There is a soft tissue mass measuring 2.9 x 2.4 cm abutting the pericardium of the RIGHT hear t. Small RIGHT pleural effusion. RIGHT supraclavicular lymph nodes measure up to 1.1 cm. Extensive RIGHT paratracheal and anterior med iastinal lymph nodes. There are additional enlarged lymph nodes extending into the RIGHT hilum, RIGHT subcarinal and precarinal. Large confluent collection of lymph nodes in the RIGHT paratracheal regio n measures at least 6.1 x 4.1 cm. RIGHT hilar confluent adenopathy contiguous with the RIGHT lower lo be mass measures 3.7 x 4.8 cm. Mild enlargement of the LEFT heart chambers. Mild encasement of the RIGHT pulmonary artery RIGHT cent ral bronchi at the hilum. Abdomen CT: No metastatic disease to the liver. Cholelithiasis without acute cholecystitis. Normal sp kristan. Normal pancreas. 10 mm nodule in the RIGHT adrenal gland indeterminate for adenoma versus neopl asm. Lobulated appearance of the RIGHT adrenal gland with 15 mm nodule this nodule was present on the prior study from 2018 and not significantly increased in size. Atrophied RIGHT kidney. Multiple masses associated with the LEFT kidney. Complex cystic and/or solid masses within the LEFT k idney. Complex masses were described on a prior CT from 2018. Slight increase in size of these masses . Not significantly changed in these may be complex cysts or slow-growing neoplasms. No obstruction. RIGHT celiac axis lymph node measures 1.4 cm. Status post aortic stent grafting is unchanged. 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 Pelvic CT: Ventral abdominal wall hernia. No GI tract obstruction. Urinary bladder is moderately well distended with mild wall thickening. Osteopenia. Moderate increase in thoracic kyphosis. No osteoblastic or osteolytic bone disease apprec iated. CT/CT chest abd pel w con* IMPRESSION: 1. Highly suspicious for neoplasm with adjacent satellite lesions involving a large portion of the RIGHT lower lobe with contiguous extension into the medias tinum consistent with neoplasm. Fluid and soft tissue nodularity extends along the RIGHT major fissure. 2. There is significant adenopathy within the chest. RIGHT supraclavicular, an terior mediastinum, RIGHT paratracheal, RIGHT hilar, precarinal and subcarinal adenopathy. 3. Pleural-based soft tissue masses and nodularity consistent with pleural inv olvement of metastatic disease is likely. Most significant nodularity in the RI GHT middle lobe. 4. RIGHT middle lobe soft tissue mass measures 2.9 x 2.4 cm abuts and extends into the pericardium. 5. Enlarging RIGHT celiac axis lymph nodes suspicious for metastatic lesion. 6. Nodules in the adrenal glands. Stable since 2018 and may be benign. 7. Severe atrophy RIGHT kidney, stable. 8. Multiple complex cystic masses in the LEFT kidney. Minimal increase in size since 2018. 9. Status post aortic stent grafting of the abdominal aorta. 10. Stable RIGHT femoral artery aneurysm. 11. Cholelithiasis without acute cholecystitis.
[2021-04-01 08:58] LABS: Troponin(5th) Baseline 61 ng/L (0-15)
[2021-04-01 09:14] LABS: Alanine Aminotransferase 11 U/L (0-41); Alkaline Phosphatase 51 IU/L (40-130); Anion Gap 16.7 (5-19); Aspartate Amino Transferase 19 U/L (0-40); Blood Urea Nitrogen 23 mg/dL (8-23); Calcium 9.8 mg/dL (8.5-10.5); Carbon Dioxide 26 mmol/L (22-29); Chloride 96 mmol/L (98-107); Creatinine Clr Calc Pharmacy 54.1234; Globulin 2.5 g/dL (1.3-4.6); Glucose 141 mg/dL (65-115); NT Pro B Type Natriuretic Pept 8263 pg/mL (0-450); Osmolality Calculated 288 mOsm/kg (285-295); Sodium 136 mmol/L (136-145); Total Protein 6.5 g/dL (6.6-8.7)
[2021-04-01 09:18] LABS: Potassium 2.7 mmol/L (3.5-5.1)
[2021-04-01] MEDS: iodixanol 320 mg/mL 100mL Btl IV (09:42)
[2021-04-01] MEDS: potassium chloride ER 20 mEq Tablet 40 MEQ PO (10:15)
[2021-04-01] MEDS: lidocaine 1% 5 ML in potassium chloride premix 100 ML 25 ML IV (10:17)
[2021-04-01 10:33] LABS: Add Urine Microscopic? NO; Charge for UA Resulting for Rev
[2021-04-01 10:41] LABS: Bilirubin Urine Neg (Negative); Blood Urine Neg (Negative); Glucose Urine UA Norm (Normal); Ketones Urine Negative (Negative); Leukocyte Esterase Urine Negative (Negative); Nitrate Urine Negative (Negative); Protein Urine Neg (Negative); Specific Gravity, Urine 1.005 (1.005-1.030); Urine Appearance Clear (CLEAR); Urine Color Yellow (Yellow); Urobilinogen Urine Norm (Negative); pH Urine 7 (5-7)
--- NOTE | 2021-04-01 11:25 | P.HP_ITS ---
Providers/Chief Complaint Primary Care Provider: KASHMIR Krueger Chief Complaint: HEART ISSUES History of Present Illness Zak Gibbs is a 76 year old male who presents to the emergency department with complaints of increasing shortness of breath the last week, pronounced in the last several days. He has not had a fever. He reports occasional cough but not anything over his norm. He had some chest discomfort last night which prompted him to come in today. It was pressure, left side of chest with no radiation, diaphoresis, or nausea. Currently the pain is gone away. He reports it felt like his angina did before. He relates he was to have a nuclear stress test soon and his mortgage field inspector was going to set this up. He has also had some abdominal pain, and has been attributing this to constipation as he has had some hard stools. Review of Systems General: Reports: 10 or more systems reviewed and unremarkable except in HPI and below Const: Reports: malaise; Denies: fever(s) or chills Eyes: Denies: change in vision ENMT: Denies: throat pain Card: Reports: chest pain Resp: Reports: dyspnea and non-productive cough GI: Reports: abdominal pain and constipation; Denies: melena : Denies: flank pain Musc: Denies: neck pain Skin/Breast: Denies: rash Neuro: Denies: headache(s) Psych: Denies: anxiety or depression Endo: Denies: polyuria David/Lymph: Denies: easy bruising All/Imm: Denies: urticaria Medications/Allergies Home Medications Medication Instructions Recorded Confirmed Last Taken Type nitroglycerin 0.4 mg sublingual 0.4 mg SUBLINGUAL Q5M PRN #25 tab 02/02/20 04/01/21 03/31/21 Rx tablet metolazone 2.5 mg tablet 2.5 mg PO DAILY PRN #14 tab 10/17/20 04/01/21 01/04/21 Rx albuterol sulfate 2.5 mg INHALATION Q4H PRN #75 ml 01/21/21 04/01/21 Unknown Rx budesonide-formoterol HFA 160 2 puff INHALATION Q12H #10.2 gm 01/21/21 04/01/21 03/31/21 Rx mcg-4.5 mcg/actuation aerosol inhaler famotidine 40 mg tablet 40 mg PO BID@08,17 #60 tab 01/21/21 04/01/21 04/01/21 Rx fenofibrate nanocrystallized 145 145 mg PO DAILY@22 #30 tab 01/21/21 04/01/21 03/31/21 Rx mg tablet furosemide 40 mg tablet 40 mg PO Q12H #60 tab 01/21/21 04/01/21 04/01/21 Rx isosorbide mononitrate 60 mg 60 mg PO BID@08,17 #60 tab 01/21/21 04/01/21 04/01/21 Rx tablet,extended release 24 hr cholecalciferol (vitamin D3) 125 125 mcg PO DAILY@1700 #90 cap 01/28/21 04/01/21 03/31/21 Rx mcg (5,000 unit) capsule carvedilol 6.25 mg tablet 6.25 mg PO BID #180 tab 02/11/21 04/01/21 04/01/21 Rx linagliptin 5 mg tablet 5 mg PO DAILY #30 tab 02/21/21 04/01/21 Unknown Rx potassium chloride 20 mEq/15 mL 40 meq PO TID #1500 ml 03/04/21 04/01/21 04/01/21 Rx oral liquid hydralazine 100 mg tablet 100 mg PO TID@08,15,18 #270 tab 03/29/21 04/01/21 04/01/21 Rx amlodipine 5 mg PO BID@08,19 04/01/21 04/01/21 04/01/21 History clopidogrel 75 mg PO DAILY@08 04/01/21 04/01/21 04/01/21 History Allergies Allergy/AdvReac Type Severity Reaction Status Date / Time morphine Allergy Unknown Verified 04/01/21 08:20 PFSH Acute PFSH: Medical History (Updated 04/01/21 @ 12:42 by Benitez Sarmiento MD) Abdominal aortic aneurysm (AAA) Aortic stenosis, mild Atrial fibrillation Carotid stenosis CHF (congestive heart failure) Chronic kidney disease, stage III (moderate) COPD (chronic obstructive pulmonary disease) D-dimer, elevated Dyslipidemia Elevated lipase Gastric reflux History of colon cancer 2014 Hx of primary malignant neoplasm of urinary bladder Hypercalcemia Hypertension Occlusion of right internal carotid artery Pulmonary emphysema Renal artery stenosis Tobacco abuse Type 2 diabetes mellitus Vitamin D deficiency Surgical History Aortocoronary bypass status History of carotid artery stenosis History of endovascular stent graft for abdominal aortic aneurysm (AAA) History of fracture of right shoulder 3 times surgery- bone repair with screws and anchor History of partial colectomy History of procedure for peripheral vascular disease Right leg History of stent insertion of renal artery Status post four vessel coronary artery bypass (~02/2014) Family History Family/Other Diabetes Hypertension CAD (coronary artery disease) Social History Smoking and tobacco status: current every day smoker Second hand smoke exposure: Yes Smoking risk assessment/counseling performed?: Yes Alcohol intake: current Desire information about alcohol rehabilitation?: No Counseling given: No Desire information about substance/drug rehabilitation?: No Counseling given: No Adopted: No Caregiver/support person: No Lives independently: Yes Household members: spouse Housing: House Marital status: service: No Current occupational status: retired History of recent travel: No Current gender identity: Male Vitals/I&O/Wt Last Vital Signs Temp 97.3 F L 04/01/21 08:11 Pulse 76 04/01/21 08:38 Resp 18 04/01/21 08:38 BP 147/59 04/01/21 08:38 Pulse Ox 94 04/01/21 08:38 Weight last 48 hrs Weight 89.811 kg Physical Exam Narrative: EXAM NARRATIVE: General exam is a white male, with mild to moderate respiratory distress HEENT: Atraumatic and normocephalic. Pupils equally round. Oropharynx clear. Neck is supple no lymphadenopathy or thyromegaly Cardiovascular irregular, irregular without murmur. I do not auscultate any rub. Lungs diminished breath sounds bilaterally, markedly right lower lobe with few crackles Abdomen is soft with positive bowel sounds. No obvious organomegaly was deferred Extremities no cyanosis clubbing or edema Skin without rash Neuro no focal deficits Data : 04/01/21 08:29 04/01/21 08:29 Micro: Microbiology 04/01/21 08:29 Blood Culture - Preliminary Blood SPECIMEN COLLECTED 04/01/21 08:50 Blood Culture - Preliminary Blood SPECIMEN COLLECTED Other data: Calcium 9.8, LFTs normal Troponin 61 with repeat of 63 BNP [address] chest abdomen pelvis demonstrates likely neoplasm right lower lobe with extension into mediastinum, and associated adenopathy most consistent with metastatic disease. A portion even invades the pericardium. Chest x-ray demonstrates right-sided hilar prominence, pneumonia EKG demonstrates atrial fibrillation, left axis deviation, intraventricular conduction delay A&P Assessment and plan (1) Postobstructive pneumonia: Secondary to hilar mass Admission to hospital IV antibiotics consisting of Zosyn Check MRSA PCR Oxygen as needed Status: Acute (2) Hilar mass: Probable malignancy Pulmonary consult for opinion regarding bronchoscopy. Note that he is on Plavix, which will likely need to be held prior to bronchoscopy Status: Acute (3) Chest pain: Patient states his discomfort is consistent with his angina prior bypass surgery past Continue home medications I will ask cardiology to see. From my understanding they may have been planning a nuclear stress test. We will need to coordinate this between subspecialties as Plavix will have to be held for bronchoscopy and biopsy. At this time plan on converting Plavix to aspirin Monitor for any recurrent chest discomfort Type II elevation of troponin. This may have been generated secondary to respiratory distress from hypoxia Status: Acute (4) Hypokalemia due to inadequate potassium intake: Supplementation initiated in the emergency department check magnesium level Status: Chronic (5) Type 2 diabetes mellitus: Sliding scale insulin Status: Chronic Qualifiers: Diabetes mellitus fci insulin use: without salvage determiner use Diabetes mellitus complication status: with hyperglycemia Qualified Code(s): E11.65 - Type 2 diabetes mellitus with hyperglycemia (6) Atrial fibrillation: Continue home medications Status: Acute Additional A&P Information Constipation. Add Colace. COPD. Pulmonary toilet. Budesonide twice daily. Will likely need home oxygen evaluation prior to discharge. History of chronic kidney disease 0.8 avoid renal toxic medication History of systolic CHF, currently compensated. BNP lower than usual.. Continue home medications. Recent last echo demonstrated EF of 40 to 45% and 3/4 diastolic dysfunction with mild aortic stenosis December 2020 Multiple other medical problems as outlined in past medical history Full code Heparin for DVT prophylaxis Attestations Medical Necessity Statement*: Will need greater than 2 midnight stay for treatment of postobstructive pneumonia with IV antibiotics Time Spent in Patient Care: Greater than 35 minutes Coding Level of Care Code Acute Credit Front Office Developer for Katherine [facility] Diagnoses Postobstructive pneumonia J18.9 Hilar mass R91.8 Chest pain R07.9 Hypokalemia due to inadequate potassium intake E87.6 Type 2 diabetes mellitus E11.65 Diabetes mellitus salvage determiner insulin use: without salvage determiner use Diabetes mellitus complication status: with hyperglycemia Atrial fibrillation I48.91
[2021-04-01 11:53] LABS: Troponin 5 2HR 63.53 ng/L (0-15); Troponin 5 2HR Delta 2.53 ABS# (0-10)
[2021-04-01] MEDS: levofloxacin-dextrose 5 % 750 MG/150 ML PREMIX 100 MG IV (11:58)
--- NOTE | 2021-04-01 12:19 | PC.NURSE ---
Attempted to call report x2 no answer
--- NOTE | 2021-04-01 12:31 | ECG_ITS ---
[facility] Test Date: 2021-04-01 Pat Name: Zak Gibbs Department: Room: 276 Gender: Male Web Site Developer: : 1945 Requested By: Kang Melgar Order Number: [id number] Ottoniel MD: Igor Wright M.D. Measurements Intervals [place] Rate: 61 P: NV: QRS: -45 QRSD: 162 T: 123 QT: 507 QTc: 511 Interpretive Statements ATRIAL FIBRILLATION INTRAVENTRICULAR CONDUCTION DELAY [130+ ms QRS DURATION] PROBABLE LATERAL MYOCARDIAL INFARCTION , OF INDETERMINATE AGE [35 ms Q WAVE IN I/aVL/V5/V6] Compared to ECG 04/01/2021 08:16:03 Left-axis deviation no longer present Myocardial infarct finding still present Electronically Signed On 04-03-2021 8:06:13 CDT by Igor Wright M.D. [id number]
--- NOTE | 2021-04-01 13:33 | P.CONIM_ITS ---
Providers/Reason For Consult Consulting Physican/Specialty*: Pulmonary critical care medicine Reason for Consult*: Suspected lung cancer Attending Physician: Benitez Sarmiento MD Primary Care Provider: KASHMIR Krueger History of Present Illness History of Present Illness Zak Gibbs is a 76 year old male who presented to the hospital with the complaints of increasing shortness of breath for about a week. The patient also experienced chest discomfort and pressure on the left side last night which has resolved. Patient has an extensive past medical history. He carries a diagnosis of coronary artery disease requiring CABG, peripheral arterial disease, status post AAA repair, ischemic cardiomyopathy, chronic kidney disease with a baseline creatinine around 2, hypertension, hyperlipidemia presented to the hospital with above-mentioned chief complaint. The patient had multiple recent hospitalization. He was hospitalized in December 2020 with NSTEMI and acute exacerbation of heart failure. The patient was diuresed. It appears that during that hospital admission the patient had left AGAINST MEDICAL ADVICE. The patient was admitted on January 01 and left AGAINST MEDICAL ADVICE on January 03. His plan was to go see his lunchroom operator in [place]. However, the patient presented to the hospital with chest pain again on January 04. This time the patient left the hospital on January 07. The patient was evaluated the cardiology office on January 21 after his hospital discharge and he was doing well. In February 11 the patient appeared to be having bilateral lower extremity edema. At that point the amlodipine was discontinued, the metoprolol switched to carvedilol. His last visit with the cardiology team was on March 11. At that visit, the patient did complain of worsening shortness of breath with exertion. In the emergency department today, the patient underwent a chest x-ray which revealed consolidation involving the right lower lung zone. There was fullness in the right hilum. The patient subsequently underwent a CT scan of the chest abdomen and pelvis. CT scan of the chest revealed narrowing of the right bronchus intermedius, right hilar mass and evidence of metastatic lymphadenopathy as well as other pulmonary lesions. The patient also has a right sided pleural effusion. His laboratory work-up did not reveal any leukocytosis. The patient has hypokalemia. His creatinine is 1.4. No significant change in the first follow- up troponin after 2 hours. His proBNP is about 8000. His pro BNP was significantly elevated at 21,000 when he was hospitalized in early December. Echocardiogram from December 2020 revealed an ejection fraction of 40 to 45%. The regional wall motion abnormalities could not be identified because of poor visibility. The patient had grade 3 diastolic dysfunction. Trace mitral regurgitation and mild aortic stenosis was noted. The patient had left atrial enlargement. The patient was seen and examined today. He appeared comfortable. The patient complains of mild cough especially when he lays down. No significant sputum production. Bedside ultrasound revealed moderate volume right-sided pleural effusion. There was positive plankton sign. Review of Systems Narrative: General: No fevers chills or night sweats. The patient reports malaise Skin: No rash HEENT: No change in vision Neck: There is no neck swelling Respiratory: Please see my HPI. Cardiovascular: No chest pain, exertional shortness of breath, no orthopnea or paroxysmal nocturnal dyspnea, minimal lower extremity edema. Gastrointestinal: No abdominal pain, nausea, vomiting Musculoskeletal: No joint pain or swelling Neurological: Patient is awake alert and oriented x3, no paralysis, gross motor function is normal. Psychiatric: No anxiety or depression. Meds/Allergies Home Medications and Allergies Home Medications Medication Instructions Recorded Confirmed Last Taken Type nitroglycerin 0.4 mg sublingual 0.4 mg SUBLINGUAL Q5M PRN #25 tab 02/02/20 04/01/21 03/31/21 Rx tablet metolazone 2.5 mg tablet 2.5 mg PO DAILY PRN #14 tab 10/17/20 04/01/21 01/04/21 Rx albuterol sulfate 2.5 mg INHALATION Q4H PRN #75 ml 01/21/21 04/01/21 Unknown Rx budesonide-formoterol HFA 160 2 puff INHALATION Q12H #10.2 gm 01/21/21 04/01/21 03/31/21 Rx mcg-4.5 mcg/actuation aerosol inhaler famotidine 40 mg tablet 40 mg PO BID@ #60 tab 01/21/21 04/01/21 04/01/21 Rx fenofibrate nanocrystallized 145 145 mg PO DAILY@22 #30 tab 01/21/21 04/01/21 03/31/21 Rx mg tablet furosemide 40 mg tablet 40 mg PO Q12H #60 tab 01/21/21 04/01/21 04/01/21 Rx isosorbide mononitrate 60 mg 60 mg PO BID@ #60 tab 01/21/21 04/01/21 04/01/21 Rx tablet,extended release 24 hr cholecalciferol (vitamin D3) 125 125 mcg PO DAILY@1700 #90 cap 01/28/21 04/01/21 03/31/21 Rx mcg (5,000 unit) capsule carvedilol 6.25 mg tablet 6.25 mg PO BID #180 tab 02/11/21 04/01/21 04/01/21 Rx linagliptin 5 mg tablet 5 mg PO DAILY #30 tab 02/21/21 04/01/21 Unknown Rx potassium chloride 20 mEq/15 mL 40 meq PO TID #1500 ml 03/04/21 04/01/21 04/01/21 Rx oral liquid hydralazine 100 mg tablet 100 mg PO TID@08,15,18 #270 tab 03/29/21 04/01/21 04/01/21 Rx amlodipine 5 mg PO BID@08,19 04/01/21 04/01/21 04/01/21 History clopidogrel 75 mg PO DAILY@08 04/01/21 04/01/21 04/01/21 History Allergies Allergy/AdvReac Type Severity Reaction Status Date / Time morphine Allergy Unknown Verified 04/01/21 08:20 PFSH Acute PFSH: Medical History Abdominal aortic aneurysm (AAA) Aortic stenosis, mild Atrial fibrillation Carotid stenosis CHF (congestive heart failure) Chronic kidney disease, stage III (moderate) COPD (chronic obstructive pulmonary disease) D-dimer, elevated Dyslipidemia Elevated lipase Gastric reflux History of colon cancer 2014 Hx of primary malignant neoplasm of urinary bladder Hypercalcemia Hypertension Occlusion of right internal carotid artery Pulmonary emphysema Renal artery stenosis Tobacco abuse Type 2 diabetes mellitus Vitamin D deficiency Surgical History Aortocoronary bypass status History of carotid artery stenosis History of endovascular stent graft for abdominal aortic aneurysm (AAA) History of fracture of right shoulder 3 times surgery- bone repair with screws and anchor History of partial colectomy History of procedure for peripheral vascular disease Right leg History of stent insertion of renal artery Status post four vessel coronary artery bypass (~02/2014) Family History Family/Other Diabetes Hypertension CAD (coronary artery disease) Social History Smoking and tobacco status: current every day smoker Second hand smoke exposure: Yes Smoking risk assessment/counseling performed?: Yes Alcohol intake: current Desire information about alcohol rehabilitation?: No Counseling given: No Desire information about substance/drug rehabilitation?: No Counseling given: No Adopted: No Caregiver/support person: No Lives independently: Yes Household members: spouse Housing: House Marital status: service: No Current occupational status: retired History of recent travel: No Current gender identity: Male Vitals/I&O/Wt Last Vital Signs Temp 97.3 F L 04/01/21 08:11 Pulse 56 L 04/01/21 13:10 Resp 18 04/01/21 13:10 BP 174/68 04/01/21 13:10 Pulse Ox 94 04/01/21 13:10 03/31/21 04/01/21 04/01/21 22:59 06:59 14:59 Intake Total 150 / 150 Balance 150 / 150 Weight last 48 hrs Weight 198 lb Physical Exam Narrative: EXAM NARRATIVE: General: Patient is awake alert and oriented, in no distress Neck: No JVD, no cervical or supraclavicular lymphadenopathy Respiratory: Auscultation: Reduced breath sound on the right side compared to the left, mild crackles above the dullness in the right posterior hemithorax Cardiovascular: Irregularly regular rhythm, variable first heart sound, no murmur, bilateral peripheral edema Abdomen: Soft, nontender, nondistended, positive bowel sound Musculoskeletal: No obvious joint deformity Skin: No rash Neuro: Mental status is normal, no gross cranial nerve deficit, normal motor and coordination. Data Micro: Micro: Microbiology 04/01/21 08:29 Blood Culture - Pr eliminary Blood SPECIMEN [facility] 04/01/21 08:50 Blood Culture - Pr eliminary Blood SPECIMEN [facility] Other Data: Attestation for Other Data: I personally reviewed and interpreted the following: Other data: I have reviewed his laboratory, microbiologic and radiologic data. Please see the HPI for detail A&P Assessment and plan (1) Hilar mass: The patient most likely has metastatic lung malignancy. I have performed a bedside thoracentesis. This will be tested for both conventional cytology and cell block examination. If we get a diagnosis from the pleural fluid analysis and have adequate cellularity of the sample, we might be able to complete the immunohistochemical testing and obtain to the appropriate diagnosis. If however, the sample is nondiagnostic the patient will need a bronchoscopic evaluation. Currently the patient is on Plavix. He needs to be off of Plavix for 5 days before bronchoscopic evaluation. The patient is in the process of undergoing a stress test that was ordered by his lunchroom operator. I would like for him to complete his cardiac work-up and have a definite cardiac planning before bronchoscopic evaluation if that becomes necessary. I have discussed this in detail with the patient. Status: Acute Coding Level of Care Code Acute F[facility] for [facility] Diagnoses Hilar mass R91.8
[2021-04-01 13:52] LABS: Magnesium 2.4 mg/dL (1.7-2.3)
--- NOTE | 2021-04-01 15:15 | PC.NURSE ---
1514: Dr. Celestin at bedside to perform u/s guided Thoracentesis of the right lung. Patient was placed in sitting position, leaned forward using safe patient techniques onto a bedside table with padded support from a pillow. Patient verbalizes comfort prior to procedure start. Present at bedside is Les Martinez RN, MSN and Dre Menendez RN, BSN for assistance. Time out performed successfully at 1514. Area was marked by Dr. Celestin with verification of patient and CXR. Area was prepped with 1% Lidocaine at 1517. Catheter introduced at 1518 with positive return of serosanguineous fluid. Dr. Celestin then connected the tubing to a 60 mL syringe and obtained 60 mL of sample pleural fluid immediately. Specimens were immediately taken to lab by Lse Martinez RN, MSN with instructions from Dr. Celestin on how to preserve the specimens for Pathology to analyze on 04/02/2021. VSS during procedure and patient denies discomfort throughout the procedure. Catheter was pulled and procedure finished at 1520. Patient tolerated procedure well.
[2021-04-01 15:32] LABS: Troponin 5 6HR 58.38 ng/L (0-15)
--- NOTE | 2021-04-01 15:36 | XRR_ITS ---
PROCEDURE INFORMATION: Exam: XR Chest Exam date and time: 04/01/2021 4:13 PM Age: 76 years old Clinical indication: Shortness of breath; Prior surgery; Surgery type: Open heart; Additional info: Post thoracentesis TECHNIQUE: Imaging protocol: XR of the chest. Views: 1 view. COMPARISON: CT chest abd pel w con* 04/01/2021 9:54 AM FINDINGS: Lungs: Nodular densities in some patchy airspace disease in the right lung similar to prior CT of the chest. Pleural spaces: Trace right pleural effusion. No pneumothorax. Heart/Mediastinum: The cardiac shadow is normal in size. Bones/joints: No acute abnormality. XR/XR chest 1V portable [id number] IMPRESSION: No pneumothorax. Similar appearance to nodular opacities and airspace disease in the right lung.
[2021-04-01 15:38] LABS: Troponin 5 6HR Delta -2.62 ng/L (0-12)
[2021-04-01 16:08] LABS: Body Fluid Polynuclear #Cells 0.291; Body Fluid WBC 2331 /uL
[2021-04-01] MEDS: ipratropium-albuterol 3 mL Neb INHALATION ×3 (16:40→23:25)
--- NOTE | 2021-04-01 16:41 | PM.ACPR ---
Procedure/Consent Time out: Time Out Performed: Yes Consent: Consent for Procedure: Consent obtained from patient Procedure Narrative: Name of the procedure: Right-sided thoracentesis under ultrasound guidance Indication: Suspicion for malignant pleural effusion Anesthetics: Local anesthesia with 1% lidocaine. IV pain medication: None. Description of the procedure: The procedure was explained to the patient in detail including the risks and a consent was obtained. The left hemithorax was scanned with ultrasound to find a safe fluid pocket. Moderate free-flowing fluid was noted. There was positive plankton sign. Following identification of the fluid pocket the site was marked. The site was cleaned using sterile technique. Lidocaine 1% was injected into the skin and the subcutaneous tissue. Subsequently, the periosteum in the parietal pleural was also anesthetized using lidocaine. The pleural space was entered in the posterior axillary line in the right ninth intercostal space. Serosanguineous fluid was aspirated. About 700 cc of fluid was aspirated. Sample: The pleural fluid was sent for cell count and differential, pH, protein, LDH, albumin, Gram stain and culture, fungal stain and culture, AFB stain and culture and cytology. We have saved sample for cell block examination. Postprocedure chest x-ray is pending. Acute Procedures Epistaxis Control: Time out performed: Yes
[2021-04-01 16:44] LABS: LDH Pleural Fluid 1847 U/L; Total Protein Pleural Fluid 3.5 g/dL
--- NOTE | 2021-04-01 17:06 | P.CONIM_ITS ---
Providers/Reason For Consult Consulting Physican/Specialty*: Igor Wright MD/ Cardiology Reason for Consult*: Chest pain/ pre procedure medical managment Requesting Physcian: Dr Sarmiento Attending Physician: Benitez Sarmiento MD Primary Care Provider: ELISE KruegerP-C History of Present Illness History of Present Illness Zak Gibbs is a 76 year old male with past medical history of chronic kidney disease, hypertension, dyslipidemia, history of colon cancer, coronary bypass surgery x2, diabetes, tobacco abuse, COPD, coronary artery disease with a renal artery stent for renal artery stenosis. He has had a AAA repair with a stent graft. He has had heart failure, carotid stenosis and a right carotid occlusion and mild aortic stenosis. Patient had admissions in December with CHF exacerbation and troponin elevation. He presented to hospital with complaints of mild chest discomfort and shortness of breath. He has been found to have a right hilar mass with postobstructive pneumonia. Patient underwent tho racentesis today. Possible plan for a bronchoscopy if diagnosis is not confirmed. Likely malignant neoplasm. Patient is currently not having any chest discomfort. His troponins did not significantly went up. NT proBNP is more than 8000. Has lower extremity edema. Review of Systems General: Reports: 10 or more systems reviewed and unremarkable except in HPI and below Const: Reports: malaise; Denies: fever(s) or chills Eyes: Denies: change in vision ENMT: Denies: throat pain Card: Reports: edema; Denies: chest pain Resp: Reports: dyspnea and non-productive cough GI: Reports: abdominal pain and constipation; Denies: melena : Denies: flank pain Musc: Denies: neck pain Skin/Breast: Denies: rash Neuro: Denies: headache(s) Psych: Denies: anxiety or depression Endo: Denies: polyuria David/Lymph: Denies: easy bruising All/Imm: Denies: urticaria Meds/Allergies Home Medications and Allergies Home Medications Medication Instructions Recorded Confirmed Last Taken Type nitroglycerin 0.4 mg sublingual 0.4 mg SUBLINGUAL Q5M PRN #25 tab 02/02/20 04/01/21 03/31/21 Rx tablet metolazone 2.5 mg tablet 2.5 mg PO DAILY PRN #14 tab 10/17/20 04/01/21 01/04/21 Rx albuterol sulfate 2.5 mg INHALATION Q4H PRN #75 ml 01/21/21 04/01/21 Unknown Rx budesonide-formoterol HFA 160 2 puff INHALATION Q12H #10.2 gm 01/21/21 04/01/21 03/31/21 Rx mcg-4.5 mcg/actuation aerosol inhaler famotidine 40 mg tablet 40 mg PO BID@ #60 tab 01/21/21 04/01/21 04/01/21 Rx fenofibrate nanocrystallized 145 145 mg PO DAILY@22 #30 tab 01/21/21 04/01/21 03/31/21 Rx mg tablet furosemide 40 mg tablet 40 mg PO Q12H #60 tab 01/21/21 04/01/21 04/01/21 Rx isosorbide mononitrate 60 mg 60 mg PO BID@ #60 tab 01/21/21 04/01/21 04/01/21 Rx tablet,extended release 24 hr cholecalciferol (vitamin D3) 125 125 mcg PO DAILY@1700 #90 cap 01/28/21 04/01/21 03/31/21 Rx mcg (5,000 unit) capsule carvedilol 6.25 mg tablet 6.25 mg PO BID #180 tab 02/11/21 04/01/21 04/01/21 Rx linagliptin 5 mg tablet 5 mg PO DAILY #30 tab 02/21/21 04/01/21 Unknown Rx potassium chloride 20 mEq/15 mL 40 meq PO TID #1500 ml 03/04/21 04/01/21 04/01/21 Rx oral liquid hydralazine 100 mg tablet 100 mg PO TID@,,18 #270 tab 03/29/21 04/01/21 04/01/21 Rx amlodipine 5 mg PO BID@08,04/01/21 04/01/21 04/01/21 History clopidogrel 75 mg PO DAILY@08 04/01/21 04/01/21 04/01/21 History Allergies Allergy/AdvReac Type Severity Reaction Status Date / Time morphine Allergy Unknown Verified 04/01/21 08:20 Current Medications Current Medications Generic Name Dose Route Start Last Admin Trade Name Freq PRN Reason Stop Dose Admin Albuterol/Ipratropium 3 ml 04/01/21 16:00 04/01/21 16:40 Ipratropium-Albuterol 3 Ml Neb INHALATION 3 ml Q4H.RESPIRATORY JUANI Administration PFSH Acute PFSH: Medical History Abdominal aortic aneurysm (AAA) Aortic stenosis, mild Atrial fibrillation Carotid stenosis CHF (congestive heart failure) Chronic kidney disease, stage III (moderate) COPD (chronic obstructive pulmonary disease) D-dimer, elevated Dyslipidemia Elevated lipase Gastric reflux History of colon cancer 2014 Hx of primary malignant neoplasm of urinary bladder Hypercalcemia Hypertension Occlusion of right internal carotid artery Pulmonary emphysema Renal artery stenosis Tobacco abuse Type 2 diabetes mellitus Vitamin D deficiency Surgical History Aortocoronary bypass status History of carotid artery stenosis History of endovascular stent graft for abdominal aortic aneurysm (AAA) History of fracture of right shoulder 3 times surgery- bone repair with screws and anchor History of partial colectomy History of procedure for peripheral vascular disease Right leg History of stent insertion of renal artery Status post four vessel coronary artery bypass (~02/2014) Family History Family/Other Diabetes Hypertension CAD (coronary artery disease) Social History Smoking and tobacco status: current every day smoker Second hand smoke exposure: Yes Smoking risk assessment/counseling performed?: Yes Alcohol intake: current Desire information about alcohol rehabilitation?: No Counseling given: No Desire information about substance/drug rehabilitation?: No Counseling given: No Adopted: No Caregiver/support person: No Lives independently: Yes Household members: spouse Housing: House Marital status: service: No Current occupational status: retired History of recent travel: No Current gender identity: Male Vitals/I&O/Wt Last Vital Signs Temp 97.3 F L 04/01/21 08:11 Pulse 67 04/01/21 16:35 Resp 16 04/01/21 16:35 BP 174/68 04/01/21 13:10 Pulse Ox 95 04/01/21 16:35 04/01/21 04/01/21 04/01/21 06:59 14:59 22:59 Intake Total 255 / 255 Output Total 300 / 300 Balance -45 / -45 Weight last 48 hrs Weight 198 lb Physical Exam Narrative: EXAM NARRATIVE: GENERAL: Patient is alert, awake and oriented x3. [] NECK: No jugular vein distension. [] HEENT: No cyanosis. No icterus. No pallor. [] HEART: Regular S1 and S2. No murmur, rub or gallop. [] LUNGS: Diminished lung sounds bilaterally. ABDOMEN: Soft, nontender and nondistended. Positive bowel sounds. No guarding, rebound or tenderness. [] CENTRAL NERVOUS SYSTEM: Grossly nonfocal. [] EXTREMITIES: Lower extremities with 1+ edema bilaterally. Pulses palpable in the lower extremities, both dorsalis pedis and posterior tibial. [] Data Micro: Micro: Microbiology 04/01/21 08:29 Blood Culture - Pr eliminary Blood SPECIMEN [facility] 04/01/21 08:50 Blood Culture - Pr eliminary Blood SPECIMEN [facility] A&P Assessment and plan (1) Postobstructive pneumonia: Status: Acute (2) Hilar mass: Status: Acute (3) Chest pain: Status: Acute (4) Elevated troponin: Status: Acute (5) Abdominal aortic aneurysm (AAA): Status: Acute (6) Dyslipidemia: Status: Chronic (7) Aortocoronary bypass status: Status: Chronic (8) Hypertension: Status: Chronic (9) Type 2 diabetes mellitus: Status: Chronic Qualifiers: Diabetes mellitus complication status: with hyperglycemia Diabetes mellitus correction insulin use: without terminal manager use Qualified Code(s): E11.65 - Type 2 diabetes mellitus with hyperglycemia Patient has a newly found hilar mass which is concerning for malignancy. Undergoing work-up with pulmonology. Had thoracentesis and may require bronchoscopy later. His chest pain is consistent with stable angina. Will manage medically at this time. We will try to avoid performing any interventions at this time while work-up for hilar mass concerning for malignancy is going on. He does not have NSTEMI or unstable angina. Can obtain limited echocardiogram to reassess LV systolic function again. Appropriate to switch Plavix to aspirin in preparation for bronchoscopy. Continue amlodipine, Imdur and hydralazine at current dose. Will recommend adding losartan 75 mg daily. Uptitrate dose of lasix for 1-2 days to 60mg BID Thank you for involving us in the care of this patient. We will continue to follow. Please call with questions. Coding Level of Care Code Acute Sound Ranging Crewmember for [facility] Fwd Diagnoses Postobstructive pneumonia J18.9 Hilar mass R91.8 Chest pain R07.9 Elevated troponin R77.8 Abdominal aortic aneurysm (AAA) I71.4 Dyslipidemia E78.5 Aortocoronary bypass status Z95.1 Hypertension I10 Type 2 diabetes mellitus E11.65 Diabetes mellitus complication status: with hyperglycemia Diabetes mellitus terminal manager insulin use: without correction use
[2021-04-01] MEDS: FUROsemide 40 mg Tablet PO (17:39)
[2021-04-01] MEDS: isosorbide mononitrate ER 60 mg Tablet PO (17:39)
[2021-04-01] MEDS: potassium chloride oral liq 20 mEq/15 mL UDC 40 MEQ PO ×2 (17:39→22:17)
[2021-04-01] MEDS: docusate sodium 100 mg Capsule PO (17:40)
[2021-04-01] MEDS: famotidine 20 mg Tablet 40 MG PO (17:40)
[2021-04-01] MEDS: carvedilol 6.25 mg Tablet PO (17:40)
[2021-04-01] MEDS: hyDRALAzine 50 mg Tablet 100 MG PO (17:40)
[2021-04-01] MEDS: amlodipine 5 mg Tablet PO (17:40)
[2021-04-01] MEDS: piperacillin-tazobactam 3.375 GM in sodium chloride 0.9% (plus) 50 ML IV ×2 (17:40→22:18)
[2021-04-01] MEDS: heparin 5,000 unit/mL INJ 1 mL 5000 UNIT SUBCUT (17:41)
[2021-04-01 18:13] LABS: Glucose Point of Care 154 mg/dL (70-110)
--- NOTE | 2021-04-01 18:54 | PC.RESP ---
SMOKING CESSATION AND PULMONARY REHAB INFORMATION SENT TO PATIENT.
[2021-04-01 18:58] LABS: Apprearance, Body Fluid CLOUDY; Color, Body Fluid RED
[2021-04-01] MEDS: budesonide 0.5 mg/2 mL Neb INHALATION (19:34)
[2021-04-01 20:32] LABS: Glucose Point of Care 104 mg/dL (70-110)
[2021-04-01] MEDS: fenofibrate 145 mg Tablet PO (22:17)
[2021-04-02] VITALS (23 sets, daily range): BP systolic 104–172; BP diastolic 56–73; PULSE 51–64; RESP 16–95; TEMP 36.6–37.1; O2SAT 92–95
[2021-04-02] MEDS: ipratropium-albuterol 3 mL Neb INHALATION ×5 (03:34→20:24)
[2021-04-02] MEDS: FUROsemide 40 mg Tablet PO (04:24)
[2021-04-02] MEDS: heparin 5,000 unit/mL INJ 1 mL 5000 UNIT SUBCUT ×2 (04:26→16:39)
[2021-04-02 05:16] LABS: Basophils % 0.5 %; Eosinophils # 0.1 10^3/uL (0.0-0.8); Eosinophils % 0.9 %; Hematocrit 40.6 % (42.0-52.0); Hemoglobin 12.6 g/dL (11.7-16.6); Lymphocytes # 1.5 10^3/uL (0.8-4.8); Lymphocytes % 18.4 %; Mean Corpuscular Hemoglobin 28.2 pg (28.0-34.0); Mean Corpuscular Volume 90.8 fL (80-94); Mean Platelet Volume 9.9 fL (7.4-10.4); Monocytes # 0.8 10^3/uL (0.2-0.9); Neutrophils # 5.57 10^3/uL (1.8-7.7); Neutrophils % 69.9 %; Nucleated Red Blood Cells % 0 %; Platelet Count 246 10^3/cmm (130-400); Red Blood Count 4.47 10^6/uL (4.1-5.3); Red Cell Distribution Width 16.1 % (12.1-15.1)
[2021-04-02 05:34] LABS: Alanine Aminotransferase 11 U/L (0-41); Albumin Level 3.5 g/dL (3.5-5.2); Alkaline Phosphatase 46 IU/L (40-130); Aspartate Amino Transferase 18 U/L (0-40); Blood Urea Nitrogen 21 mg/dL (8-23); Calcium 9.6 mg/dL (8.5-10.5); Carbon Dioxide 28 mmol/L (22-29); Chloride 99 mmol/L (98-107); Globulin 2.9 g/dL (1.3-4.6); Glucose 119 mg/dL (65-115); Magnesium 2.3 mg/dL (1.7-2.3); Osmolality Calculated 288 mOsm/kg (285-295); Sodium 137 mmol/L (136-145); Total Protein 6.4 g/dL (6.6-8.7)
[2021-04-02 05:41] LABS: Anion Gap 13.8 (5-19); Potassium 3.8 mmol/L (3.5-5.1)
[2021-04-02 06:45] LABS: Glucose Point of Care 117 mg/dL (70-110)
[2021-04-02] MEDS: piperacillin-tazobactam 3.375 GM in sodium chloride 0.9% (plus) 50 ML IV ×3 (06:56→23:27)
[2021-04-02] MEDS: budesonide 0.5 mg/2 mL Neb INHALATION ×2 (08:35→20:24)
--- NOTE | 2021-04-02 08:46 | PM.PN ---
Subjective Subjective: Interval history: Max reports he feels much better than yesterday. Less short of breath. He underwent a thoracentesis yesterday for therapeutic and diagnostic purposes. 700 cc was removed. He denies any chest discomfort overnight. Medications: Reviewed: Yes Vitals/I&O/Wt Last Vital Signs Temp 97.8 F 04/02/21 08:09 Pulse 61 04/02/21 08:43 Resp 18 04/02/21 08:36 BP 172/71 04/02/21 08:09 Pulse Ox 93 04/02/21 08:36 04/01/21 04/02/21 04/02/21 22:59 06:59 14:59 Intake Total 1010 / 1265 530 / 1795 Output Total 400 / 700 850 / 1550 Balance 610 / 565 -320 / 245 Weight last 48 hrs Weight 89.811 kg Physical Exam Narrative: EXAM NARRATIVE: General exam is a white male with no significant respiratory distress currently. Telemetry overnight showed atrial flutter, with some bradycardia Neck is supple no lymphadenopathy or thyromegaly Cardiovascular irregular, irregular without murmur. I do not auscultate any rub. Lungs diminished breath sounds bilaterally. No crackles Abdomen is soft with positive bowel sounds. No obvious organomegaly Extremities no cyanosis clubbing or edema Data : 04/02/21 04:40 04/02/21 04:40 Micro: Microbiology 04/01/21 15:19 Gram Stain - Final Pleural Fluid 04/01/21 08:29 Blood Culture - Preliminary Blood SPECIMEN COLLECTED 04/01/21 08:50 Blood Culture - Preliminary Blood SPECIMEN COLLECTED A&P Assessment and plan (1) Postobstructive pneumonia: Secondary to hilar mass Continue IV Zosyn Await MRSA PCR Clinically improving, likely from thoracentesis and removal of 700 cc of fluid. This was exudative as expected. Status: Acute (2) Hilar mass: Probable malignancy Pulmonary consult for opinion regarding bronchoscopy. They are hopeful, diagnosis can be made off pleural fluid. Plavix has been discontinued for possible need for bronchoscopy. Aspirin started at 325 mg Status: Acute (3) Chest pain: Patient states his discomfort is consistent with his angina prior bypass surgery past Continue home medications I will ask cardiology to see. From my understanding they may have been planning a nuclear stress test. We will need to coordinate this between subspecialties as Plavix will have to be held for bronchoscopy and biopsy. At this time plan on converting Plavix to aspirin Patient has had no recurrent chest pain. Cardiology consultation is pending. Type II elevation of troponin. This may have been generated secondary to respiratory distress from hypoxia Continue beta-tres, nitrate, amlodipine Status: Acute (4) Hypokalemia due to inadequate potassium intake: Potassium is normal this morning Status: Chronic (5) Type 2 diabetes mellitus: Sliding scale insulin Status: Chronic Qualifiers: Diabetes mellitus computer terminal operator insulin use: without custodial use Diabetes mellitus complication status: with hyperglycemia Qualified Code(s): E11.65 - Type 2 diabetes mellitus with hyperglycemia (6) Atrial fibrillation: Reduce carvedilol to 3.125 mg twice daily. He is significantly bradycardic in the low 40s at times. Status: Acute Additional A&P Information Constipation. Colace added. He has had a bowel movement. COPD. Pulmonary toilet. Budesonide twice daily. Will likely need home oxygen evaluation prior to discharge. History of chronic kidney disease 0.8 avoid renal toxic medication History of systolic CHF, currently compensated. BNP lower than usual.. Continue home medications. Recent last echo demonstrated EF of 40 to 45% and 3/4 diastolic dysfunction with mild aortic stenosis December 2020 Multiple other medical problems as outlined in past medical history Full code Heparin for DVT prophylaxis Attestations Medical Necessity Statement*: Needs continued hospitalization for treatment of postobstructive pneumonia, cardiology evaluation for chest discomfort. Coding Level of Care Code Acute Glass Decorator for [facility] Fwd Diagnoses Postobstructive pneumonia J18.9 Hilar mass R91.8 Chest pain R07.9 Hypokalemia due to inadequate potassium intake E87.6 Type 2 diabetes mellitus E11.65 Diabetes mellitus computer terminal operator insulin use: without custodial use Diabetes mellitus complication status: with hyperglycemia Atrial fibrillation I48.91
[2021-04-02] MEDS: potassium chloride oral liq 20 mEq/15 mL UDC 40 MEQ PO ×3 (09:29→21:27)
[2021-04-02] MEDS: isosorbide mononitrate ER 60 mg Tablet PO ×2 (09:29→16:38)
[2021-04-02] MEDS: famotidine 20 mg Tablet 40 MG PO ×2 (09:29→16:38)
[2021-04-02] MEDS: aspirin 325 mg EC Tablet PO (09:29)
[2021-04-02] MEDS: docusate sodium 100 mg Capsule PO ×2 (09:29→16:38)
[2021-04-02] MEDS: carvedilol 3.125 mg Tablet PO ×2 (09:30→16:38)
[2021-04-02] MEDS: hyDRALAzine 50 mg Tablet 100 MG PO ×3 (09:30→18:45)
[2021-04-02] MEDS: amlodipine 5 mg Tablet PO ×2 (09:30→18:45)
--- NOTE | 2021-04-02 10:19 | USCV_ITS ---
Bernie, Max Age: 76 Gender: M : 1945 Exam Date: 04/02/2021 15:42 Ordering Phys: Benitez Sarmiento MD Technologist: Radha Bazan [place] [facility] [place]: chest pain BP: 157 / 73 HR: 52 Rhythm: Sinus Technical Quality: Adequate MEASUREMENTS (Male / Female) Normal Values 2D ECHO LV Diastolic Diameter PLAX 4.1 cm 4.2 - 5.9 / 3.9 - 5.3 cm LV Systolic Diameter PLAX 3.3 cm IVS Diastolic Thickness 2.3 cm 0.6 - 1.0 / 0.6 - 0.9 cm IVS Systolic Thickness 1.9 cm LVPW Diastolic Thickness 1.3 cm 0.6 - 1.0 / 0.6 - 0.9 cm LVPW Systolic Thickness 1.0 cm RV Chamber Size 3.9 cm LVOT Diameter 2.0 cm LV Ejection Fraction 2D Teich 40.2 % LV Ejection Fraction MOD 2C 8.6 % LV Ejection Fraction 2C AL 13.6 % LA Diameter 3.7 cm LA Width 5.0 cm LA Height 4.9 cm RA Width 4.2 cm RA Height 4.2 cm Aorta at Sinotubular Diameter 2.0 cm M-MODE LV Diastolic Diameter MM 4.3 cm 4.2 - 5.9 / 3.9 - 5.3 cm LV Systolic Diameter MM 3.4 cm LV Ejection Fraction MM Teich 42.5 % IVS Diastolic Thickness MM 1.5 cm 0.6 - 1.0 / 0.6 - 0.9 cm IVS Systolic Thickness MM 1.4 cm LVPW Diastolic Thickness MM 1.3 cm 0.6 - 1.0 / 0.6 - 0.9 cm LVPW Systolic Thickness MM 1.1 cm Aortic Annulus Diameter 3.1 cm LA Ao Ratio MM 1.3 MV E Point Septal Separation 0.8 cm FINDINGS Left Ventricle Normal LV size with a diminished ejection fraction of 40%. Diffuse hypokinesia of the left ventricle. Right Ventricle Normal right ventricular size and systolic function. Right Atrium Normal right atrial size. Left Atrium Mildly increased left atrial size. Mitral Valve Thickened mitral valve. Mild to moderatemitral annular calcification. Aortic Valve Thickened aortic valve. Tricuspid Valve Structurally normal tricuspid valve without significant stenosis or regurgitation. Pulmonary artery systolic pressure is normal. Pulmonic Valve Structurally normal pulmonic valve without significant stenosis. There is no pulmonic regurgitation. Pericardium Normal pericardium without effusion. Aorta Normal ascending aorta dimension. CONCLUSIONS Normal LV size with a diminished ejection fraction of 40%. Diffuse hypokinesia of the left ventricle Mildly increased left atrial size. Thickened mitral valve. Mild to moderatemitral annular calcification. Structurally normal tricuspid valve without significant stenosis or regurgitation. Pulmonary artery systolic pressure is normal. No significant pulmonic regurgitation There is no pericardial effusion. There are no intracardiac masses. Compared to the study from 01/03/2021, there may not be a significant change Dr Magnus Narayan MD [facility] (Electronically Signed) Final Date: 02 Apr 2021 23:41 S
--- NOTE | 2021-04-02 11:55 | P.PN_ITS ---
Subjective Subjective: Interval history: Patient is doing well. No chest pain. Breathing has improves since thorcentesis Vitals/I&O/Wt Last Vital Signs Temp 97.8 F 04/02/21 08:09 Pulse 60 04/02/21 11:40 Resp 95 H 04/02/21 11:34 BP 172/71 04/02/21 08:09 Pulse Ox 93 04/02/21 08:36 04/01/21 04/02/21 04/02/21 22:59 06:59 14:59 Intake Total 1010 / 1265 530 / 1795 50 / 50 Output Total 400 / 700 850 / 1550 500 / 500 Balance 610 / 565 -320 / 245 -450 / -450 Weight last 48 hrs Weight 198 lb Physical Exam Narrative: EXAM NARRATIVE: GENERAL: Patient is alert, awake and oriented x3. [] NECK: No jugular vein distension. [] HEENT: No cyanosis. No icterus. No pallor. [] HEART: Regular S1 and S2. No murmur, rub or gallop. [] LUNGS: Diminished lung sounds bilaterally. ABDOMEN: Soft, nontender and nondistended. Positive bowel sounds. No guarding, rebound or tenderness. [] CENTRAL NERVOUS SYSTEM: Grossly nonfocal. [] EXTREMITIES: Lower extremities with 1+ edema bilaterally. Pulses palpable in the lower extremities, both dorsalis pedis and posterior tibial. [] Data : 04/02/21 04:40 04/03/21 04:54 Micro: Microbiology 04/01/21 18:19 Gram Stain - Final Sputum - Expectorated Sputum 04/01/21 08:29 Blood Culture - Preliminary Blood NEGATIVE TO DATE 04/01/21 08:50 Blood Culture - Preliminary Blood NEGATIVE TO DATE 04/01/21 15:19 Gram Stain - Final Pleural Fluid A&P Assessment and plan (1) Postobstructive pneumonia: Status: Acute (2) Hilar mass: Status: Acute (3) Chest pain: Status: Acute (4) Elevated troponin: Status: Acute (5) Abdominal aortic aneurysm (AAA): Status: Acute (6) Dyslipidemia: Status: Chronic (7) Aortocoronary bypass status: Status: Chronic (8) Hypertension: Status: Chronic (9) Type 2 diabetes mellitus: Status: Chronic Qualifiers: Diabetes mellitus long-term insulin use: without terminal makeup operator use Diabetes mellitus complication status: with hyperglycemia Qualified Code(s): E11.65 - Type 2 diabetes mellitus with hyperglycemia Patient has a newly found hilar mass which is concerning for malignancy. Undergoing work-up with pulmonology. Had thoracentesis and may require bronchoscopy later. His chest pain is consistent with stable angina. Will manage medically at this time. We will try to avoid performing any int erventions at this time while work-up for hilar mass concerning for malignancy is going on. He does not have NSTEMI or unstable angina. Limited echo shows LV systolic function has not changed since last echo in December Appropriate to switch Plavix to aspirin in preparation for bronchoscopy. Continue amlodipine, Imdur and hydralazine at current dose. Losartan started Lasix uptitrated, watch renal function closely. Thank you for involving us in the care of this patient. We will continue to fol low. Please call with questions. Attestations Medical Necessity Statement*: Care expected to cross 2 midnights Coding Level of Care Code Acute Assistant Tennis Professional for [facility] Fwd Diagnoses Postobstructive pneumonia J18.9 Hilar mass R91.8 Chest pain R07.9 Elevated troponin R77.8 Abdominal aortic aneurysm (AAA) I71.4 Dyslipidemia E78.5 Aortocoronary bypass status Z95.1 Hypertension I10 Type 2 diabetes mellitus E11.65 Diabetes mellitus long-term insulin use: without terminal makeup operator use Diabetes mellitus complication status: with hyperglycemia
[2021-04-02 12:06] LABS: Glucose Point of Care 98 mg/dL (70-110)
[2021-04-02] MEDS: losartan 50 mg Tablet PO (12:36)
--- NOTE | 2021-04-02 13:29 | PC.OT ---
OT NOTE: OT EVALUATION ORDERS RECEIVED. OT SCREEN COMPLETED. PATIENT DOES NOT NEED ANY ASSISTANCE WITH ADLS. NO FURTHER SKILLED OT REQUIRED AT THIS TIME.
[2021-04-02] MEDS: FUROsemide 40 mg Tablet 60 MG PO (16:39)
[2021-04-02 16:51] LABS: Glucose Point of Care 112 mg/dL (70-110)
--- NOTE | 2021-04-02 19:55 | PC.NURSE ---
PTS BLOOD PRESSURE HAS BEEN KIND OF SOFT TODAY. THIS EVENING THIS NURSE CHECKED PT'S BLOOD PRESSURE MANUALLY. BLOOD PRESSURE WAS 104/56. HEART RATE RUNNING BETWEEN 48-50. THE DOCTOR WAS NOTIFIED OF THESE FINDINGS. DOCTOR WAS NOTIFIED DUE TO A SCHEDULED DOSE OF HYDRALAZINE 100 MG PO AND AMLODIPINE 5MG PO. THE DOCTOR SAID TO GO AHEAD AND GIVE BOTH MEDICATIONS. BOTH MEDICATIONS WERE ADMINISTERED. PT IS DOING FINE. WILL CONTINUE TO MONITOR. REPORT GIVEN TO LABORATORY ANALYST.
[2021-04-02 20:31] LABS: Glucose Point of Care 116 mg/dL (70-110)
[2021-04-02] MEDS: fenofibrate 145 mg Tablet PO (21:27)
[2021-04-03] VITALS (11 sets, daily range): BP systolic 106–131; BP diastolic 64–72; PULSE 53–66; RESP 14–18; TEMP 36.6–36.7; O2SAT 92–96
[2021-04-03] MEDS: ipratropium-albuterol 3 mL Neb INHALATION ×2 (00:51→08:26)
[2021-04-03] MEDS: heparin 5,000 unit/mL INJ 1 mL 5000 UNIT SUBCUT (03:52)
[2021-04-03] MEDS: FUROsemide 40 mg Tablet 60 MG PO (03:57)
[2021-04-03] MEDS: piperacillin-tazobactam 3.375 GM in sodium chloride 0.9% (plus) 50 ML IV (05:58)
[2021-04-03 06:25] LABS: Glucose Point of Care 107 mg/dL (70-110)
[2021-04-03 06:32] LABS: Anion Gap 14.3 (5-19); Blood Urea Nitrogen 27 mg/dL (8-23); Calcium 9.6 mg/dL (8.5-10.5); Carbon Dioxide 27 mmol/L (22-29); Chloride 100 mmol/L (98-107); Glucose 101 mg/dL (65-115); Osmolality Calculated 289 mOsm/kg (285-295); Potassium 4.3 mmol/L (3.5-5.1); Sodium 137 mmol/L (136-145)
[2021-04-03] MEDS: budesonide 0.5 mg/2 mL Neb INHALATION (08:26)
[2021-04-03] MEDS: isosorbide mononitrate ER 60 mg Tablet PO (09:02)
[2021-04-03] MEDS: potassium chloride oral liq 20 mEq/15 mL UDC 40 MEQ PO (09:02)
[2021-04-03] MEDS: carvedilol 3.125 mg Tablet PO (09:02)
[2021-04-03] MEDS: hyDRALAzine 50 mg Tablet 100 MG PO (09:02)
[2021-04-03] MEDS: famotidine 20 mg Tablet 40 MG PO (09:02)
[2021-04-03] MEDS: losartan 50 mg Tablet PO (09:02)
[2021-04-03] MEDS: amlodipine 5 mg Tablet PO (09:02)
[2021-04-03] MEDS: aspirin 325 mg EC Tablet PO (09:02)
[2021-04-03] MEDS: docusate sodium 100 mg Capsule PO (09:02)
--- NOTE | 2021-04-03 10:34 | P.DS_ITS ---
Discharge Providers Date of Admission: 04/01/21 13:44 Date of Discharge: April 03, 2021 Attending Provider at Admission: Benitez Sarmiento MD Attending Provider at Discharge: Benitez Sarmiento MD Primary Care Provider: KASHMIR Krueger Diagnoses at Discharge Discharge Diagnosis (1) Postobstructive pneumonia: Status: Acute (2) Hilar mass: Status: Acute (3) Chest pain: Status: Acute (4) Elevated troponin: Status: Acute (5) Abdominal aortic aneurysm (AAA): Status: Acute (6) Dyslipidemia: Status: Chronic (7) Aortocoronary bypass status: Status: Chronic (8) Hypertension: Status: Chronic (9) Type 2 diabetes mellitus: Status: Chronic Qualifiers: Diabetes mellitus intermediate insulin use: without intermediate use Diabetes mellitus complication status: with hyperglycemia Qualified Code(s): E11.65 - Type 2 diabetes mellitus with hyperglycemia Reason for Visit Reason for Visit: HEART ISSUES Hospital Course Hospital Course Zak is a 76-year-old white male who presented to the emergency department with complaints of chest discomfort. EKG was not diagnostic. Troponin was elevated but did not have significant delta. Potassium was noted to be low. Chest x-ray demonstrated right-sided pneumonia and CT scan chest abdomen pelvis demonstrated likely metastatic lung cancer. Small pleural effusion was also noted on the right with likely pleural implants. He was placed in the hospital and received IV antibiotics for postobstructive pneumonia. Potassium was supplemented. Limited echocardiogram was performed demonstrating an EF of about 40%, no significant change from last echo with diffuse hypokinesia. No significant pericardial effusion. Pulmonary was consulted secondary to his lung mass and they performed a thoracentesis demonstrated an exudative effusion. A cell block will be made from the fluid obtained to try to achieve a diagnosis. Cardiology also saw the patient secondary to chest pain. Considering his diagnosis of likely lung cancer, adjustment of medications occurred for hypertension, fluid overload. He was also changed from Plavix to aspirin for likely future procedures. He tolerated all this without difficulty. He felt much better on the fifth, on room air and was able to ambulate around the room. He wished to go home and this was arranged with close follow-up. He will need a BMP in 3 days for recheck of his creatinine which cardiology has agreed to follow. He will follow-up with his primary care provider as well as pulmonary for close follow-up of his newly diagnosed lung mass, likely representing metastatic lung cancer. All of this was explained in detail to the patient and his family. Physical Exam Narrative: EXAM NARRATIVE: General exam is no apparent distress Neck supple no lymphadenopathy Cardiovascular regular rate and rhythm Lungs distant sounds. A few faint crackles right lung Abdomen is soft positive bowel sounds Extremities no cyanosis clubbing or edema Discharge Data Data Completed and Pending: Completed Studies During Hospitalization Category Date Time Status CT chest abd pel w con* Urgent Cat Scan 04/01/21 08:44 Completed XR chest 1V pola ble [id number] Stat Exams 04/01/21 08:20 Completed XR chest 1V pola ble [id number] Stat Exams 04/01/21 15:36 Completed CV echo limited [id number] Routine Ultrasound 04/02/21 10:19 Completed Pending at discharge Category Date Time Status Blood Culture Sta t Lab 04/01/21 08:29 Results Body Fluid Cultur e & GS Routine Lab 04/01/21 15:19 Results Mycobacteria, Cul ture w/Fluor Routi ne Lab 04/01/21 15:19 Received Sputum Culture an d Gram Stain Stat Lab 04/01/21 18:19 Results Cytology [PTH] Ro utine Pth 04/01/21 15:58 Received Labs from last 24 hours 04/03/21 04/03/21 04/02/21 06:23 04:54 19:57 Sodium 137 Potassium 4.3 Chloride 100 Carbon Dioxide 27 Anion Gap 14.3 BUN 27 H Creatinine 2.2 H GFR Calculation Not Reportable Glucose 101 POC Glucose 107 116 H Calculated Osmolal ity 289 Calcium 9.6 04/02/21 04/02/21 16:00 12:00 Sodium Potassium Chloride Carbon Dioxide Anion Gap BUN Creatinine GFR Calculation Glucose POC Glucose 112 H 98 Calculated Osmolal ity Calcium Vitals: Last Vital Signs Temp 97.9 F 04/03/21 08:00 Pulse 64 04/03/21 08:34 Resp 18 04/03/21 08:28 BP 131/71 04/03/21 09:02 Pulse Ox 95 04/03/21 08:28 Discharge Plan Discharge Patient Disposition: Home Condition: Stable Prescriptions: New losartan 25 mg tablet 25 mg PO DAILY Qty: 30 RF: 0 aspirin 325 mg Tablet,Delayed Release (Dr/Ec) 325 mg PO DAILY Qty: 30 RF: 0 carvedilol 3.125 mg Tablet 3.125 mg PO BID Qty: 60 RF: 0 levofloxacin 750 mg tablet 750 mg PO DAILY 7 Days Qty: 7 RF: 0 Continued nitroglycerin [Nitrostat] 0.4 mg tablet, sublingual 0.4 mg SUBLINGUAL Q5M PRN (Reason: chest pain) Qty: 25 RF: 5 cholecalciferol (vitamin D3) 125 mcg (5,000 unit) capsule 125 mcg PO DAILY@1700 Qty: 90 RF: 0 Pepcid 40 mg tablet 40 mg PO BID@08,17 Qty: 60 RF: 2 Tricor 145 mg tablet 145 mg PO DAILY@22 Qty: 30 RF: 2 furosemide 40 mg tablet 40 mg PO Q12H Qty: 60 RF: 2 isosorbide mononitrate 60 mg tablet extended release 24 hr 60 mg PO BID@08,17 Qty: 60 RF: 2 budesonide-formoterol [Symbicort] 160-4.5 mcg/actuation HFA aerosol inhaler 2 puff INHALATION Q12H Qty: 10.2 RF: 2 albuterol sulfate 2.5 mg /3 mL (0.083 %) solution for nebulization 2.5 mg inhalation Q4H PRN (Reason: shortness of breath or wheezing) Qty: 75 RF: 2 Tradjenta 5 mg tablet 5 mg PO DAILY Qty: 30 RF: 2 potassium chloride 20 mEq/15 mL liquid 40 meq PO TID Qty: 1500 RF: 2 hydralazine 100 mg tablet 100 mg PO TID@08,15,18 Qty: 270 RF: 3 amlodipine 5 mg tablet 5 mg PO BID@08,19 RF: 0 Discontinued metolazone 2.5 mg tablet 2.5 mg PO DAILY PRN (Reason: edema) Qty: 14 RF: 0 carvedilol 6.25 mg tablet 6.25 mg PO BID Qty: 180 RF: 3 clopidogrel 75 mg tablet 75 mg PO DAILY@08 RF: 0 Discharge Orders: Discharge Order (Routine); Ordered 04/03/21 Ordered By: Benitez Sarmiento Referrals: Glenys Portillo FNP-C [Primary Care Provider] - 04/08/21 2:20 pm Corrina Cabrera FNP [Nurse Practitioner] - 7-10 days Francisco Celestin MD [Physician] - Discharge Diet: Cardiac Discharge Activity: Increase activity as tolerated Patient Instructions: Opioid Safety Activity Restrictions/Additional Instructions: Take all medicine as prescribed BMP through cardiology clinic 3 days for recheck of creatinine after adjustment of medications in hospital Follow-up with pulmonary next week, primary care provider 3 to 5 days, cardiology 1 week Discharge Attestations Time Spent in Discharge Care*: greater than 30 min Status at Discharge: Cognitive status at discharge: cognitively intact , Behavioral status at discharge: cooperative , Quality Metrics Clinical Quality Measures During this hospital stay, did patient experience: None Coding Level of Care Code Acute g FW DC note Diagnoses Postobstructive pneumonia J18.9 Hilar mass R91.8 Chest pain R07.9 Elevated troponin R77.8 Abdominal aortic aneurysm (AAA) I71.4 Dyslipidemia E78.5 Aortocoronary bypass status Z95.1 Hypertension I10 Type 2 diabetes mellitus E11.65 Diabetes mellitus intermediate insulin use: without intermediate use Diabetes mellitus complication status: with hyperglycemia
--- NOTE | 2021-04-03 10:40 | P.PN_ITS ---
Subjective Subjective: Interval history: Patient is doing well. He denies any complaints of chest pain, shortness of breath or palpitations. Vitals/I&O/Wt Last Vital Signs Temp 97.9 F 04/03/21 08:00 Pulse 64 04/03/21 08:34 Resp 18 04/03/21 08:28 BP 131/71 04/03/21 09:02 Pulse Ox 95 04/03/21 08:28 04/02/21 04/03/21 04/03/21 22:59 06:59 14:59 Intake Total 400 / 690 530 / 1220 530 / 530 Output Total 1350 / 1850 Balance 400 / 190 -820 / -630 530 / 530 Physical Exam Narrative: EXAM NARRATIVE: GENERAL: Patient is alert, awake and oriented x3. [] NECK: No jugular vein distension. [] HEENT: No cyanosis. No icterus. No pallor. [] HEART: Regular S1 and S2. No murmur, rub or gallop. [] LUNGS: Diminished lung sounds bilaterally. ABDOMEN: Soft, nontender and nondistended. Positive bowel sounds. No guarding, rebound or tenderness. [] CENTRAL NERVOUS SYSTEM: Grossly nonfocal. [] EXTREMITIES: Lower extremities with 1+ edema bilaterally. Pulses palpable in the lower extremities, both dorsalis pedis and posterior tibial. [] Data : 04/02/21 04:40 04/03/21 04:54 Micro: Microbiology 04/01/21 18:19 Gram Stain - Final Sputum - Expectorated Sputum Sputum Culture - Preliminary 04/01/21 15:19 Gram Stain - Final Pleural Fluid Body Fluid Culture - Preliminary 04/01/21 18:00 MRSA Culture - Final Nose 04/01/21 08:29 Blood Culture - Preliminary Blood NEGATIVE TO DATE 04/01/21 08:50 Blood Culture - Preliminary Blood NEGATIVE TO DATE A&P Assessment and plan (1) Postobstructive pneumonia: Status: Inactive (2) Hilar mass: Status: Inactive (3) Chest pain: Status: Resolved (4) Elevated troponin: Status: Resolved (5) Abdominal aortic aneurysm (AAA): (6) Dyslipidemia: (7) Aortocoronary bypass status: (8) Hypertension: (9) Type 2 diabetes mellitus: Qualifiers: Diabetes mellitus detention insulin use: without detention use Diabetes mellitus complication status: with hyperglycemia Qualified Code(s): E11.65 - Type 2 diabetes mellitus with hyperglycemia Patient has a newly found hilar mass which is concerning for malignancy. Undergoing work-up with pulmonology. Had thoracentesis and may require bronchoscopy later. His chest pain is consistent with stable angina. Will manage medically at this time. We will try to avoid performing any interventions at this time while work-up for hilar mass concerning for malignancy is going on. He does not have NSTEMI or unstable angina. Limited echo shows LV systolic function has not changed since last echo in December Continue aspirin Continue amlodipine, Imdur and hydralazine at current dose. Losartan started Patient wants to be discharged today. He appears close to euvolemic and is on room air. Thank you for involving us in the care of this patient. Patient is stable to be discharged from cardiology standpoint. Please call with questions. Attestations Medical Necessity Statement*: Care expected to cross 2 midnights. 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
[2021-04-03 11:58] LABS: Glucose Point of Care 108 mg/dL (70-110)
--- NOTE | 2021-04-03 13:20 | PC.NURSE ---
PT HAS DONE WELL FOR ME TODAY. NO COMPLAINTS OF PAIN. NO COMPLAINTS OF CHEST PAIN. PT HAS BEEN UP AMBULATING AND HAS DONE WELL. PT WILL DISCHARGE TODAY PER MD. DISCHARGE PAPERWORK GONE OVER WITH PT. ALL QUESTIONS ANSWERED. IV WAS REMOVED. PT TOLERATED WELL. CATHETER TIP INTACT. PT WAS WHEELED OUT BY THIS NURSE. WAS PRESENT. PT SAFELY DISCHARGED FROM THIS HOSPITAL AT 13:04.
== END 2021-04-03 15:03 | disposition home health service (06) | DRG 194 ==
LOC: ER 08:55 → MEDSURG 12:26
PROVIDERS: Internal Medicine Critical Care Medicine; Nurse Practitioner Family; Admitting Provider Internal Medicine; Emergency Provider Family Medicine; PCP Nurse Practitioner; Visit Provider Internal Medicine
DX: J18.9 Pneumonia, unspecified organism (principal); J91.0 Malignant pleural effusion; C78.00 Secondary malignant neoplasm of unspecified lung; I13.0 Hypertensive heart and chronic kidney disease with heart failure and stage 1 through stage 4 chronic kidney disease, or unspecified chronic kidney disease; I50.22 Chronic systolic (congestive) heart failure; K59.00 Constipation, unspecified; I35.0 Nonrheumatic aortic (valve) stenosis; I48.91 Unspecified atrial fibrillation; I65.21 Occlusion and stenosis of right carotid artery; N18.30 Chronic kidney disease, stage 3 unspecified; E11.22 Type 2 diabetes mellitus with diabetic chronic kidney disease; E11.65 Type 2 diabetes mellitus with hyperglycemia; J43.9 Emphysema, unspecified; E78.5 Hyperlipidemia, unspecified; K21.9 Gastro-esophageal reflux disease without esophagitis; Z85.038 Personal history of other malignant neoplasm of large intestine; Z85.51 Personal history of malignant neoplasm of bladder; I70.1 Atherosclerosis of renal artery; E55.9 Vitamin D deficiency, unspecified; I25.10 Atherosclerotic heart disease of native coronary artery without angina pectoris; Z95.5 Presence of coronary angioplasty implant and graft; Z90.49 Acquired absence of other specified parts of digestive tract; E11.51 Type 2 diabetes mellitus with diabetic peripheral angiopathy without gangrene; Z98.62 Peripheral vascular angioplasty status; F17.210 Nicotine dependence, cigarettes, uncomplicated; E87.6 Hypokalemia; Z79.51 Long term (current) use of inhaled steroids; I25.2 Old myocardial infarction; I25.5 Ischemic cardiomyopathy
CPT/HCPCS: 36415; 36416; 71045; 71260; 74177; 80048; 80053; 80500; 81003; 82945; 82962; 83615; 83735; 83880; 83986; 84157; 84484; 85025; 87015; 87040; 87070; 87075; 87116; 87205; 87206; 87641; 87801; 88112; 88305; 89050; 93005; 93308; 94640; 96365; 96366; 96367; 96372; 96375; 97161; 99291; J1644; J1815; J1956; J2543; J3480; J7626; Q9967

== ENCOUNTER 2021-04-09 08:40 | Outpatient (CLI) | payer MEDICARE, SELFPAY ==
[2021-04-09 11:08] LABS: Basophils # 0.1 10^3/uL (0.0-0.1); Basophils % 0.6 %; Eosinophils # 0.1 10^3/uL (0.0-0.8); Eosinophils % 1.2 %; Hematocrit 39.2 % (42.0-52.0); Hemoglobin 12.5 g/dL (11.7-16.6); Lymphocytes # 1.7 10^3/uL (0.8-4.8); Lymphocytes % 18.2 %; Mean Corpuscular HGB Conc 31.9 g/dL (30.0-36.0); Mean Corpuscular Hemoglobin 28.8 pg (28.0-34.0); Mean Corpuscular Volume 90.3 fL (80-94); Mean Platelet Volume 9.9 fL (7.4-10.4); Monocytes % 10.1 %; Neutrophils # 6.61 10^3/uL (1.8-7.7); Neutrophils % 69.2 %; Nucleated Red Blood Cells % 0 %; Platelet Count 262 10^3/cmm (130-400); Red Blood Count 4.34 10^6/uL (4.1-5.3); Red Cell Distribution Width 16.5 % (12.1-15.1); White Blood Count 9.6 10^3/uL (4.0-10.0)
[2021-04-09 11:43] LABS: Alanine Aminotransferase 9 U/L (0-41); Albumin Level 3.6 g/dL (3.5-5.2); Alkaline Phosphatase 45 IU/L (40-130); Aspartate Amino Transferase 19 U/L (0-40); Blood Urea Nitrogen 67 mg/dL (8-23); Calcium 10.1 mg/dL (8.5-10.5); Carbon Dioxide 26 mmol/L (22-29); Chloride 92 mmol/L (98-107); Globulin 3.3 g/dL (1.3-4.6); Glucose 97 mg/dL (65-115); Osmolality Calculated 291 mOsm/kg (285-295); Sodium 131 mmol/L (136-145); Thyroid Stimulating Hormone 3.33 uIU/mL (0.27-4.20); Total Bilirubin 0.5 mg/dL (0.15-1.2); Total Protein 6.9 g/dL (6.6-8.7)
[2021-04-09 11:56] LABS: Anion Gap 18.2 (5-19); Potassium 5.2 mmol/L (3.5-5.1)
--- NOTE | 2021-04-09 17:28 | ONC CON_ITS ---
Dr. Schaefer New Patient Note Patient: Zak Gibbs Unit #: [id number]: 1945 Dicatated By: Jus Schaefer M.D.Date of Visit: April 09, 2021 Onc MED New Patient/Consult Referring Physician: Dr. SHANDA CELESTIN M.D. Chief Complaint: Lung cancer. 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 He had presented with gradually worsening shortness of breath over a period of a year or so. Chest x-ray on 04/01/2021 showed prominent right basilar consolidation consistent with pneumonia. Also noted was right pulmonary hilar prominence with right hilar mass not excluded. Further evaluation with CT scans of the chest, abdomen, and pelvis showed mass with adjacent satellite lesions involving a large portion of the right lower lobe with contiguous extension into the mediastinum, consistent with neoplasm. Fluid and soft tissue nodularity was noted to extend along the right major fissure. There was associated right supraclavicular, anterior mediastinal, right paratracheal, right hilar, precarinal, and subcarinal adenopathy. Also noted were pleural-based soft tissue masses and nodularity consistent with pleural involvement, most significantly in the right middle lobe, and there was an additional right middle lobe soft tissue mass measuring 2.9 x 2.4 cm. Enlarging right celiac axis lymph nodes were suspicious for metastatic disease. Bilateral adrenal nodules appeared stable compared to a prior study in 2018. Severe atrophy of the right kidney also appeared stable. He was seen by Dr. Celestin and he underwent right-sided thoracentesis under ultrasound guidance. The pleural fluid cytology was reported to be positive for small cell carcinoma. He is seen now for further management of the lung cancer. He has multiple underlying medical illnesses including hypertension, hyperlipidemia, type 2 diabetes, chronic kidney disease, coronary artery disease with ischemic cardiomyopathy, carotid stenosis, peripheral arterial disease, and COPD. He has been showing significant decline in his general condition. He is very weak generally and he has virtually no activity. His ECOG score is 3. Appetite is poor. His weight is down 25 pounds. He does not have fever or night sweats. He has shortness of breath and he also has cough productive of white or yellow sputum. He is having pain on the right side of his chest. He has not been having hemoptysis. He complains that his stomach feels queasy. He has had ongoing problems with constipation. Bladder function has been okay. He has chronic pain in his back and he also has pain in his knees and elbows. He does not complain of headache or. He does report having numbness/tingling. Past Medical History: His medical history includes abdominal aortic aneurysm, aortic stenosis, atrial fibrillation, carotid stenosis, chronic kidney disease, chronic obstructive pulmonary disease, coronary artery disease with ischemic cardiomyopathy, dyslipidemia, gastroesophageal reflux disease, history of bladder cancer, hypertension, peripheral arterial disease, type II diabetes, and history of colon cancer in 2014. Past Surgical History: His surgical/procedural history includes renal artery stent, right lower extremity arterial bypass procedures x 3, right shoulder surgery x 3, TURBT for superficial bladder cancer in 2019, redo coronary artery bypass graft in 2016, right hemicolectomy for colon cancer in 2012, quadruple coronary artery bypass in 2011, endovascular repair of abdominal aortic aneurysm in 2011, and left carotid endarterectomy in 2005. Medications: Albuterol Sulfate ((2.5 mg/3ml) 0.083%) Nebulization solution Inhalation 8x/d, amLODIPine Besylate (5 mg) Tablet Oral b.i.d., Aspirin (325 mg) Tablet, enteric coated Oral daily, Budesonide-Formoterol Fumarate (160-4.5 mcg/act) Aerosol Inhalation b.i.d., Cholecalciferol (125 mcg ) Tablet Oral daily, Coreg (3.125 mg) Tablet Oral b.i.d., Famotidine (40 mg) Tablet Oral b.i.d., Fenofibrate (145 mg) Tablet Oral at bedtime, Furosemide (40 mg) Tablet Oral b.i.d., hydrALAZINE HCl (50 mg) Tablet Oral b.i.d., Isosorbide Mononitrate ER (60 mg) Tablet SR 24 HR Oral b.i.d., Klor-Con M10 2 (10 meq) Tablet, controlled release Oral b.i.d., linaGLIPtin (5 mg) Tablet Oral daily, Losartan Potassium (25 mg) Tablet Oral daily Allergies: Morphine Sulfate Social History: Mr. Gibbs is . He has a history of smoking for 68 years previously in the range of 2 to 2-1/2 packs of cigarettes daily. He has cut down to 1 pack/day. He currently does not drink alcohol. He has had some alcohol use in the remote past, but never heavy. Family History: Father of heart disease at age 76. Mother had diabetes and of heart attack at age 62. A brother of throat cancer at age 50. A sister at age 48 from a blood clot in her lung. Review Of Symptoms: Constitutional - He is very weak generally and he has very limited activity. Appetite is poor. His weight is down 25 pounds. He does not have fever or night sweats. ECOG score is 3, Eyes - No change in vision, ENMT - No hearing loss or tinnitus. He as some sinus drainage. No mouth sores. No sore throat or difficulty swallowing, Hematologic/Lymphatic - He has easy bruising, Respiratory - He has shortness of breath. He has cough productive of white or yellow sputum. He has pain on the right side of the chest. No hemoptysis, Cardiovascular - No angina pain. No palpitations, Gastrointestinal - He complains that his stomach feels queasy. He has acid reflux. He has constipation. No blood in the stool or black stools, Genitourinary (M) - No dysuria or hematuria. No urinary frequency. No urgency or incontinence, Musculoskeletal - He has pain in his knees and elbows and he has lower back pain, Integumentary - No skin rash or other skin changes, Neurologic - No headache or dizziness. He has numbness/tingling. No other focal neurologic symptoms, Psychiatric - No anxiety or depression. He is having difficulty sleeping. Vital Signs: Performed on April 09, 2021 10:42: 10, 8, 34.43 (HIGH), 1.96 sq.m, 64 in, 94 % (LOW), 56 /min (LOW), 20 /min, 104/54 mm(hg), 97.0 F (LOW), and 200.6 lbs (HIGH). Physical Examination: Constitutional - He appears generally weak, Eyes - Sclerae nonicteric. Conjunctivae clear, ENMT - No lesions noted in the oral cavity, Neck - No mass or thyromegaly, Hematologic/Lymphatic - I am not able to palpate any cervical, clavicular, or axillary adenopathy, Respiratory - Lungs show markedly diminished breath sounds on the right. They are mildly decreased on the left, Cardiovascular - Heart rhythm is irregular. There is a II/ systolic murmur. There is no gallop or rub noted, Abdomen - Soft. Liver and spleen are not enlarged. There is no abdominal mass or ascites noted and there is no inguinal adenopathy, Back/Spine - No spine or CVA tenderness noted, Extremities - Mild lower extremity edema, worse on the right. I am not able to palpate pedal pulses, Integumentary - No rashes. No suspicious skin lesions noted, Neurologic - No focal neurologic deficits noted. Problem List: 1. Small cell carcinoma involving the lower lobe of the right lung. By clinical evaluation he has extensive stage disease, TNM stage IVB (T3, N2, M1c). He has very poor performance status. 2. Hypertension. 3. Hyperlipidemia. 4. Type 2 diabetes. 5. Chronic kidney disease with history of renal artery stenosis. 6. Coronary artery disease with ischemic cardiomyopathy. 7. Atrial fibrillation. 8. Carotid stenosis. 9. Peripheral arterial disease. 10. COPD. 11. GERD. 12. History of superficial bladder cancer. 13. History of colon cancer. 14. Status post endovascular repair of abdominal aortic aneurysm. 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 By clinical evaluation he has extensive stage disease, TNM stage IVB (T3, N2, M1c). He has very poor performance status. The CT findings were reviewed with the patient and his , and I discussed the pathology results and clinical implications. He has small cell carcinoma of the right lung with extensive stage disease. We discussed the fact that his disease is inoperable and incurable, but that it can potentially respond to chemotherapy and/or radiation. He has not completed his staging evaluation, but as his overall condition has declined significantly, I think that he does need to start treatment as soon as possible. As such, he will have baseline laboratory studies done today and he will be scheduled to return tomorrow to begin a course of chemotherapy with carboplatin/etoposide. With extensive stage disease, he also may be eligible for concurrent immunotherapy with atezolizumab, but that will be subject to verification of insurance coverage. In the meantime, I will go ahead and schedule him to complete staging with head MRI and PET/CT. Signed By: Jus Schaefer M.D. <<Signature on File>>
== END 2021-04-09 08:41 | disposition home or self-care (01) ==
PROVIDERS: PCP Nurse Practitioner; Visit Provider Internal Medicine Medical Oncology
DX: C34.31 Malignant neoplasm of lower lobe, right bronchus or lung (principal); I10 Essential (primary) hypertension; E78.5 Hyperlipidemia, unspecified; E11.59 Type 2 diabetes mellitus with other circulatory complications; I25.10 Atherosclerotic heart disease of native coronary artery without angina pectoris; I42.9 Cardiomyopathy, unspecified; E11.22 Type 2 diabetes mellitus with diabetic chronic kidney disease; N18.9 Chronic kidney disease, unspecified; I48.20 Chronic atrial fibrillation, unspecified; I65.23 Occlusion and stenosis of bilateral carotid arteries; I73.9 Peripheral vascular disease, unspecified; J44.9 Chronic obstructive pulmonary disease, unspecified; K21.9 Gastro-esophageal reflux disease without esophagitis; Z85.038 Personal history of other malignant neoplasm of large intestine; Z85.51 Personal history of malignant neoplasm of bladder; Z79.899 Other long term (current) drug therapy
CPT/HCPCS: 36415; 80053; 84443; 85025; 99205

== ENCOUNTER 2021-04-09 18:59 | Inpatient (IN) | payer MEDICARE, SELFPAY ==
[2021-04-09] VITALS (8 sets, daily range): BP systolic 112–167; BP diastolic 57–109; PULSE 49–78; RESP 17–28; TEMP 36.6; O2SAT 93–97; BMI 26.8
--- NOTE | 2021-04-09 19:06 | XRR_ITS ---
PROCEDURE INFORMATION: Exam: XR Chest Exam date and time: 04/09/2021 7:18 PM Age: 76 years old Clinical indication: Cough and shortness of breath and other: Weakness; Prior surgery; Surgery type: Open heart x2 TECHNIQUE: Imaging protocol: XR of the chest. Views: 1 view. COMPARISON: CR XR chest 1V portable [id number] 04/01/2021 4:54 PM FINDINGS: Infiltrate within the right lower lobe is not significantly changed. The left lung remains clear. There is no pleural effusion or pneumothorax. The heart size is stable. The patient is status post coronary artery bypass graft surgery. XR/XR chest 1V portable [id number] IMPRESSION: Right lower lobe infiltrates not significantly changed.
--- NOTE | 2021-04-09 19:07 | ECG_ITS ---
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 Measurements Intervals [place] Rate: 55 P: MN: QRS: -41 QRSD: 158 T: 129 QT: 476 QTc: 456 Interpretive Statements ATRIAL FIBRILLATION WITH SLOW VENTRICULAR RESPONSE LEFT AXIS DEVIATION [QRS AXIS < -30] INTRAVENTRICULAR CONDUCTION DELAY [130+ ms QRS DURATION] LATERAL MYOCARDIAL INFARCTION , OF INDETERMINATE AGE [40+ ms Q WAVE AND/OR ST/T ABNORMALITY IN I/aVL/V5/V6] Compared to ECG 04/01/2021 12:24:30 Left-axis deviation now present Myocardial infarct finding still present Electronically Signed On 04-10-2021 18:25:43 CDT by Lauren Thomas M.D. [id number]
--- NOTE | 2021-04-09 20:32 | CTR_ITS ---
PROCEDURE INFORMATION: Exam: CT Abdomen And Pelvis Without Contrast Exam date and time: 04/09/2021 8:33 PM Age: 76 years old Clinical indication: Condition or disease; Cancer; Other: Lung; Prior surgery; Surgery type: Colon, appy, aaa; Additional info: H/o lung cancer. Now acute renal failure. Mets? TECHNIQUE: Imaging protocol: Computed tomography of the abdomen and pelvis without contrast. Radiation optimization: All CT scans at this facility use at least one of these dose optimization techniques: automated exposure control; mA and/or kV adjustment per patient size (includes targeted exams where dose is matched to clinical indication); or iterative reconstruction. COMPARISON: CT chest abd pel w con* 04/01/2021 9:54 AM RADIATION DOSE METRICS: Total DLP (mGy-cm): 1223.58 FINDINGS: There is infiltrate within the right lung base with a right pleural effusion. There are degenerative changes of the spine. There are degenerative changes of both hips. There is no liver mass. There is no intrahepatic biliary dilatation. Gallstones are seen within the gallbladder. The pancreas is unremarkable. The spleen is unremarkable. There is no adrenal mass. The right kidney is atrophic. Calcifications are seen within the right renal parenchyma. There is a hyperdense cyst within the midpole of the right kidney measuring 13 mm. Several complex cysts are seen within the left kidney as well, the largest in the lower pole measuring 3.9 cm. There is no hydronephrosis. There appears to have been stent graft repair involving the abdominal aorta. There is no evidence for leak. The IVC is normal in caliber. There is no retroperitoneal adenopathy. There is no mesenteric adenopathy. The stomach is unremarkable. The small bowel loops in the upper abdomen are nondistended with no bowel wall thickening. The colonic structures within the upper abdomen are normal in caliber with no bowel wall thickening. There is a fat containing umbilical hernia. Within the pelvis:The patient is status post appendectomy. The bladder is unremarkable. The prostate gland and seminal vesicles are normal. There is no free fluid within the pelvis. There is no inguinal adenopathy. There is no pelvic adenopathy. There is aneurysmal dilatation of the right common femoral artery. The the rectosigmoid colon is decompressed. CT/CT abdomen pelvis wo con [id number] IMPRESSION: 1. Infiltrate within the right lower lobe with right pleural effusion. 2. Stent graft repair surgery of the abdominal aorta extending into the common iliac arteries. 3. Cholelithiasis. 4. 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 5. No evidence for bowel obstruction or bowel wall thickening. 6. Atrophic right kidney. Complex bilateral renal cysts. 7. Overall, no significant change since the old exam. Radiation Dose CTDIVOL = (mGy): DLP = 1223.58 (mGy-cm)
[2021-04-09 20:34] LABS: Basophils # 0.1 10^3/uL (0.0-0.1); Basophils % 0.5 %; Eosinophils # 0.1 10^3/uL (0.0-0.8); Eosinophils % 0.9 %; Hematocrit 40.1 % (42.0-52.0); Hemoglobin 12.5 g/dL (11.7-16.6); Lymphocytes # 1.9 10^3/uL (0.8-4.8); Lymphocytes % 19.7 %; Mean Corpuscular HGB Conc 31.2 g/dL (30.0-36.0); Mean Corpuscular Hemoglobin 28.5 pg (28.0-34.0); Mean Corpuscular Volume 91.6 fL (80-94); Mean Platelet Volume 9.7 fL (7.4-10.4); Monocytes # 0.9 10^3/uL (0.2-0.9); Monocytes % 9.6 %; Neutrophils # 6.44 10^3/uL (1.8-7.7); Neutrophils % 68.4 %; Nucleated Red Blood Cells % 0 %; Platelet Count 269 10^3/cmm (130-400); Red Blood Count 4.38 10^6/uL (4.1-5.3); Red Cell Distribution Width 16.4 % (12.1-15.1); White Blood Count 9.4 10^3/uL (4.0-10.0)
[2021-04-09 20:51] LABS: Alanine Aminotransferase 8 U/L (0-41); Albumin Level 3.6 g/dL (3.5-5.2); Alkaline Phosphatase 43 IU/L (40-130); Anion Gap 19.2 (5-19); Aspartate Amino Transferase 17 U/L (0-40); Blood Urea Nitrogen 63 mg/dL (8-23); Carbon Dioxide 25 mmol/L (22-29); Chloride 94 mmol/L (98-107); Globulin 2.7 g/dL (1.3-4.6); Glucose 96 mg/dL (65-115); Osmolality Calculated 294 mOsm/kg (285-295); Potassium 5.2 mmol/L (3.5-5.1); Sodium 133 mmol/L (136-145); Total Bilirubin 0.5 mg/dL (0.15-1.2); Total Protein 6.3 g/dL (6.6-8.7)
[2021-04-09 20:53] LABS: Troponin(5th) Baseline 73 ng/L (0-15)
--- NOTE | 2021-04-09 21:02 | W.ED.GENADLT ---
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 He also has chronic medical history A. fib, CHF, COPD, aortic stenosis, CABG, CKD. This was a new patient to Dr. Schaefer today who sent him to the ER for evaluation as he has increased creatinine. He is currently being treated for pneumonia and is on his last day of oral antibiotics. Associated symptoms: Deny chest pain, confusion, dyspnea (Chronic and unchanged shortness of breath.), headache(s), rash or palpitations Review of Systems General: Reports: 10 or more systems reviewed and unremarkable except in HPI and below Const: Denies: fatigue Eyes: Denies: change in vision, blurry vision or eye redness ENMT: Denies: throat pain, swelling of lips/tongue, ear or mastoid pain or nasal congestion Card: Denies: chest pain, palpitations, irregular heart rhythm, edema, dyspnea on exertion or orthopnea Resp: Denies: dyspnea (Chronic and unchanged shortness of breath.), productive cough or non-productive cough GI: Denies: abdominal pain, diarrhea or GI cramping : Denies: flank pain, urinary frequency or urinary urgency Musc: Denies: neck pain, back pain, extremity pain, joint pain, joint redness, limited range of motion or muscle weakness Skin/Breast: Denies: rash, pruritus, erythema, skin pain or skin tenderness Neuro: Denies: headache(s), numbness in extremities, weakness in extremities, sensory changes, difficulty walking, dizziness, confusion or Slurred speech present Psych: Denies: anxiety or depression Endo: Denies: polyuria All/Imm: Denies: urticaria, throat swelling or tongue swelling PFSH ED PFSH: Medical History Abdominal aortic aneurysm (AAA) Aortic stenosis, mild Atrial fibrillation Carotid stenosis CHF (congestive heart failure) Chronic kidney disease, stage III (moderate) COPD (chronic obstructive pulmonary disease) D-dimer, elevated Dyslipidemia Elevated lipase Gastric reflux History of colon cancer 2014 Hx of primary malignant neoplasm of urinary bladder Hypercalcemia Hypertension Occlusion of right internal carotid artery Pulmonary emphysema Renal artery stenosis Tobacco abuse Type 2 diabetes mellitus Vitamin D deficiency Surgical History Aortocoronary bypass status History of carotid artery stenosis History of endovascular stent graft for abdominal aortic aneurysm (AAA) History of fracture of right shoulder 3 times surgery- bone repair with screws and anchor History of partial colectomy History of procedure for peripheral vascular disease Right leg History of stent insertion of renal artery Status post four vessel coronary artery bypass (~02/2014) Family History Family/Other Diabetes Hypertension CAD (coronary artery disease) Social History Smoking and tobacco status: current every day smoker Second hand smoke exposure: Yes Smoking risk assessment/counseling performed?: Yes Alcohol intake: current Desire information about alcohol rehabilitation?: No Counseling given: No Desire information about substance/drug rehabilitation?: No Counseling given: No Adopted: No Caregiver/support person: No Lives independently: Yes Household members: spouse Housing: House Marital status: service: No Current occupational status: retired History of recent travel: No Current gender identity: Male Physical Exam Const: COMMON NORMALS: no acute distress, average body habitus, patient oriented x3, no limitations, healthy appearing, alert and well nourished GENERAL APPEARANCE: cooperative, comfortable, well kempt and well developed ORIENTATION/CONSCIOUSNESS: Yes awake, Yes oriented to person, Yes oriented to place and Yes oriented to time HENMT: COMMON NORMALS: normocephalic, external ears normal and Normal external nose present HEAD & SCALP: normal to inspection and normocephalic NOSE: Normal external nose present EXTERNAL EAR: Yes external ears normal MOUTH: Normal oral and palatal mucosa present THROAT: posterior oropharynx normal Eye: COMMON NORMALS: Equal, round and reactive pupils present and EOMs intact bilaterally GENERAL EYE: appearance normal, both eyes and all related structures PUPIL: Yes Equal, round and reactive pupils present Neck/C-Spine: COMMON NORMALS: full ROM, no lymphadenopathy, no meningeal signs and no JVD GENERAL: Yes normal visual inspection Lymph: LYMPHATIC: no lymphadenopathy noted Chest: COMMONS NORMALS: normal inspection of the chest and normal palpation of entire chest wall Resp: COMMON NORMALS: normal respiratory effort, No retractions, No use of accessory muscles, clear to auscultation bilaterally and percussion normal EFFORT & INSPECTION: Yes able to speak in complete sentences AUSCULTATION: clear to auscultation bilaterally and diminished lung sounds PERCUSSION: percussion normal Cardio: COMMON NORMALS: no JVD, regular rate, regular rhythm, S1 normal heart sound present, S2 normal heart sound present and Peripheral pulses 2+ throughout RATE: regular rate RHYTHM: regular rhythm HEART SOUNDS: S1 normal heart sound present and S2 normal heart sound present PERIPHERAL PULSES: Peripheral pulses 2+ throughout GI: COMMON NORMALS: Normal to inspection, nondistended, normoactive bowel sounds present, Soft to palpation, non-tender and no masses INSPECTION: Yes normal to inspection PALPATION: Yes Soft to palpation : COMMON NORMALS: Yes no CVA tenderness BLADDER/KIDNEY EXAM: Yes no CVA tenderness Back/Pelvis: COMMON NORMALS: no CVA tenderness, thoracic and lumbar spine normal to inspection, no thoracic nor lumbar tenderness and thoraco-lumbar ROM normal Extremity: COMMON NORMALS: normal to inspection, full ROM, capillary refill normal, no joint enlargement and no pedal edema GENERAL: Yes normal exam except as noted Neuro: COMMON NORMALS: patient oriented x3, CN's II-XII intact bilaterally, moves all extremities, no focal motor deficits, no sensory deficits noted and gait normal SENSORIUM/ORIENTATION: Yes alert, Yes oriented to person, Yes oriented to place and Yes oriented to time MENINGEAL SIGNS: Yes no meningeal signs Psych: COMMON NORMALS: mental status grossly normal, Normal thought process present, cooperative, normal affect and speech normal APPEARANCE: Yes well kempt ATTITUDE: Yes calm SPEECH: Yes normal speech THOUGHT PROCESS: Normal thought process present Skin: COMMON NORMALS: no rashes or lesions noted NARRATIVE SKIN EXAM: Mild peripheral edema 1+ to 2+ in his lower extremities bilaterally. GENERAL SKIN EXAM: no rashes or lesions noted Course Vital Signs: Vital signs: Vital Signs Temperature 97.8 F 04/09/21 19:44 Pulse Rate 49 L 04/09/21 20:30 Respiratory Rate 21 H 04/09/21 20:30 Blood Pressure 122/57 04/09/21 20:30 Pulse Oximetry 95 04/09/21 20:30 MDM - General Adult MDM Narrative: Medical decision making narrative: The patient came to the ER for acute renal failure of unknown cause. He is likely over hydrated related to his chronic CHF. He also has CT evidence of chronic kidney disease and cysts. He was given 40 of Lasix and admitted to the hospitalist Dr. Seth who accepts care Lab Data: Labs: Lab Results 04/09/21 04/09/21 04/09/21 Range/Units 20:20 20:20 20:20 WBC 9.4 (4.0-10.0) 10^3/ uL RBC 4.38 (4.1-5.3) 10^6/u L Hgb 12.5 (11.7-16.6) g/dL Hct 40.1 L (42.0-52.0) % MCV 91.6 (80-94) fL MCH 28.5 (28.0-34.0) pg MCHC 31.2 (30.0-36.0) g/dL RDW 16.4 H (12.1-15.1) % Plt Count 269 (130-400) 10^3/c mm MPV 9.7 (7.4-10.4) fL Neut % (Auto) 68.4 % Lymph % (Auto) 19.7 % Haines % (Auto) 9.6 % Eos % (Auto) 0.9 % Baso % (Auto) 0.5 % Neut # (Auto) 6.44 (1.8-7.7) 10^3/u L Lymph # (Auto) 1.9 (0.8-4.8) 10^3/u L Haines # (Auto) 0.9 (0.2-0.9) 10^3/u L Eos # (Auto) 0.1 (0.0-0.8) 10^3/u L Baso # (Auto) 0.1 (0.0-0.1) 10^3/u L Nucleated RBC % (a uto) 0 % Nucleated RBCs # 0.0 /100WBC Sodium 133 L (136-145) mmol/L Potassium 5.2 H (3.5-5.1) mmol/L Chloride 94 L (98-107) mmol/L Carbon Dioxide 25 (22-29) mmol/L Anion Gap 19.2 H (5-19) BUN 63 H (8-23) mg/dL Creatinine 4.6 H (0.7-1.2) mg/dL GFR Calculation Not Reportable Glucose 96 (65-115) mg/dL Calculated Osmolal ity 294 (285-295) mOsm/k g Calcium 10.0 (8.5-10.5) mg/dL Total Bilirubin 0.5 (0.15-1.2) mg/dL AST 17 (0-40) U/L ALT 8 (0-41) U/L Alkaline Phosphata se 43 (40-130) IU/L Troponin T Baselin e 73 H (0-15) ng/L Total Protein 6.3 L (6.6-8.7) g/dL Albumin 3.6 (3.5-5.2) g/dL Globulin 2.7 (1.3-4.6) g/dL Discharge Plan Discharge Patient Disposition: Admitted As Inpatient Clinical Impression: Acute renal failure, CHF (congestive heart failure), Lung cancer Condition: Stable Coding Level of Care Code ED Manufacturing Quality Technician for Katherine Orr
[2021-04-09] MEDS: sodium polystyrene sulfonate 15 gm/60 mL Btl PO (21:07)
--- NOTE | 2021-04-09 21:11 | PC.NURSE ---
Fluids not given due to patient having congestive heart failure. Physician approved.
--- NOTE | 2021-04-09 21:12 | PM.HP ---
Providers/Chief Complaint Primary Care Provider: MOON Krueger-C Chief Complaint: kidney issues/dr sarbjit hidalgo History of Present Illness Zak Gibbs is a 76 year old male who was diagnosed with small cell carcinoma of the right lower lobe stage IV, has significant comorbid conditions including A. fib, aortic stenosis, COPD, CABG type 2 diabetes colon cancer, bladder cancer, ischemic cardiomyopathy EF 40 to 45% grade 3 diastolic dysfunction, chronic renal disease, history of renal artery stenosis presented today from Dr. Schaefer's clinic for worsening creatinine. He went to Dr. Ibarra clinic today for initiation of chemotherapy however today's lab revealed creatinine of 4.6, prior creatinine was 2.2. Patient is stating that he has been experiencing shortness of breath on mild activities, also endorsing orthopnea and PND does not use oxygen at home, still smoking a few cigarettes a day, has not noticed any fever, chest pain, dysuria or bowel movement changes. He lives with his . He has used Levaquin for pneumonia treatment. He takes Lasix twice a day, endorsing adequate urine output. Diagnostics in the ER revealed normal hemodynamics, CBC normal, BMP shows hyperkalemia 5.2 creatinine 4.6, no acidosis troponin 73 EKG showing atrial flutter slow ventricular response, chest x-ray consistent with right lower lobe pneumonia Review of Systems Const: Reports: chills, body aches and fatigue; Denies: fever(s) Eyes: Denies: change in vision ENMT: Denies: throat pain Card: Reports: swelling of feet/ankles, dyspnea on exertion and orthopnea; Denies: chest pain Resp: Reports: dyspnea and non-productive cough GI: Denies: abdominal pain : Denies: flank pain Musc: Reports: muscle cramps Skin/Breast: Denies: rash Neuro: Denies: headache(s) Psych: Denies: anxiety Endo: Denies: polyuria David/Lymph: Denies: easy bruising All/Imm: Denies: urticaria Medications/Allergies Home Medications Medication Instructions Recorded Confirmed Last Taken Type nitroglycerin 0.4 mg sublingual 0.4 mg SUBLINGUAL Q5M PRN #25 tab 02/02/20 04/08/21 03/31/21 Rx tablet albuterol sulfate 2.5 mg INHALATION Q4H PRN #75 ml 01/21/21 04/09/21 Unknown Rx budesonide-formoterol HFA 160 2 puff INHALATION Q12H #10.2 gm 01/21/21 04/08/21 03/31/21 Rx mcg-4.5 mcg/actuation aerosol inhaler furosemide 40 mg tablet 40 mg PO Q12H #60 tab 01/21/21 04/08/21 04/01/21 Rx linagliptin 5 mg tablet 5 mg PO DAILY #30 tab 02/21/21 04/08/21 Unknown Rx amlodipine 5 mg PO BID@08,19 04/01/21 04/08/21 04/01/21 History carvedilol 3.125 mg PO BID #60 tab 04/03/21 04/08/21 Unknown Rx levofloxacin 750 mg PO DAILY 7 Days #7 tab 04/03/21 04/08/21 Unknown Rx losartan 25 mg PO DAILY #30 tab 04/03/21 04/08/21 Unknown Rx hydralazine 50 mg tablet 50 mg PO Q12H #60 tab 04/08/21 04/08/21 Unknown Rx potassium chloride 10 mEq 20 meq PO BID #120 tab 04/08/21 04/08/21 Unknown Rx tablet,extended release(part/cryst) wheelchair #1 ea 04/08/21 04/08/21 Unknown Rx Pepcid 40 mg PO BID 04/09/21 04/09/21 04/09/21 18:00 History Tricor 145 mg PO BEDTIME 04/09/21 04/09/21 04/09/21 18:00 History aspirin 325 mg PO QAM 04/09/21 04/09/21 04/09/21 History cholecalciferol (vitamin D3) 125 mcg PO DAILY 04/09/21 04/09/21 04/09/21 History isosorbide mononitrate 60 mg PO BID 04/09/21 04/09/21 04/09/21 18:00 History Allergies Allergy/AdvReac Type Severity Reaction Status Date / Time morphine Allergy Unknown Verified 04/09/21 21:15 PFSH Acute PFSH: Medical History Abdominal aortic aneurysm (AAA) Aortic stenosis, mild Atrial fibrillation Bradycardia, sinus Carotid stenosis CHF (congestive heart failure) Chronic kidney disease, stage III (moderate) COPD (chronic obstructive pulmonary disease) D-dimer, elevated Dyslipidemia Elevated lipase Gastric reflux Hilar mass History of colon cancer 2014 Hx of primary malignant neoplasm of urinary bladder Hypercalcemia Hypertension Occlusion of right internal carotid artery Postobstructive pneumonia Pulmonary emphysema Renal artery stenosis Tobacco abuse Type 2 diabetes mellitus Vitamin D deficiency Surgical History Aortocoronary bypass status History of carotid artery stenosis History of endovascular stent graft for abdominal aortic aneurysm (AAA) History of fracture of right shoulder 3 times surgery- bone repair with screws and anchor History of partial colectomy History of procedure for peripheral vascular disease Right leg History of stent insertion of renal artery Status post four vessel coronary artery bypass (~02/2014) Family History Family/Other Diabetes Hypertension CAD (coronary artery disease) Social History Smoking and tobacco status: current every day smoker Second hand smoke exposure: Yes Smoking risk assessment/counseling performed?: Yes Alcohol intake: current Desire information about alcohol rehabilitation?: No Counseling given: No Desire information about substance/drug rehabilitation?: No Counseling given: No Adopted: No Caregiver/support person: No Lives independently: Yes Household members: spouse Housing: House Marital status: service: No Current occupational status: retired History of recent travel: No Current gender identity: Male Vitals/I&O/Wt Last Vital Signs Temp 97.8 F 04/09/21 19:44 Pulse 49 L 04/09/21 20:30 Resp 21 H 04/09/21 20:30 BP 122/57 04/09/21 20:30 Pulse Ox 95 04/09/21 20:30 Weight last 48 hrs Weight 94.801 kg Physical Exam Narrative: EXAM NARRATIVE: Very pleasant cooperative elderly male In semi-Espinal position saturating well on room air Heart rate 56 atrial flutter on telemetry Variable S1-S2 with active signs of heart failure however no prominent JVD lower extremity 1+ pitting edema bilaterally Bronchial breathing right side as compared to left with positive egophony, no active wheezing or crackles Abdomen soft, tympanic, nontender bowel sound present Awake alert oriented x3 GCS 15 No joint swelling Appropriate mood and affect Data : 04/09/21 20:20 04/09/21 20:20 A&P Assessment and plan (1) Acute worsening of stage 3 chronic kidney disease: Status: Acute (2) Acute exacerbation of congestive heart failure: Status: Acute (3) Hyperkalemia: Status: Acute (4) Lung cancer: Status: Acute (5) Atrial fibrillation: Status: Acute Additional A&P Information Acute on chronic kidney disease stage III Acute worsening of creatinine, his baseline creatinine seems to be around 1.7-2 He has used Levaquin, takes losartan, has mild congestive heart failure signs, history of ischemic cardiomyopathy I would transition from Lasix to Bumex, monitor urine output and correlate with creatinine, he has history of aortic stenosis would only use 1 mg of Bumex for now which will be given to his home dose of Lasix Right kidney atrophy secondary to renal artery stenosis, left kidney with multiple cysts, Patient is endorsing adequate urine output no dysuria CT abdomen pelvis did not reveal any hydronephrosis Hyperkalemia: No EKG changes, will give 1 dose of calcium gluconate and Kayexalate Hold potassium supplementation and losartan Mild congestive heart failure exacerbation Diastolic dysfunction with aortic stenosis Currently on IV Bumex I would not repeat his echo at this time Small cell lung cancer , Still smoking on daily basis, follows up with Dr. Schaefer, he went to Dr. Schaefer's clinic today for initiation of IV chemotherapy but unfortunately because of high creatinine was sent to the ER Atrial fibrillation with slow ventricular response Hold Coreg for now He takes high-dose aspirin Postobstructive pneumonia Chest x-ray showing right lower lobe pneumonia and a mass No active signs of sepsis, saturating well on room air He finished his Levaquin regimen Hold off on antibiotic Goals of care discussed with the patient: He wants CPR without intubation, please reevaluate in the morning Cardiac diet DVT prophylaxis Heparin Attestations Medical Necessity Statement*: Anticipating stay in the hospital cross more than 2 midnights for SARY and CHF exacerbation Time Spent in Patient Care: (>than 50% of time spent in counselling and/or direct pt care on unit). 40mins Coding Level of Care Code Acute Generator Operator Straight Bevel Gear for Katherine Fwjase Diagnoses Acute worsening of stage 3 chronic kidney disease N18.30 Acute exacerbation of congestive heart failure I50.9 Hyperkalemia E87.5 Lung cancer C34.90 Atrial fibrillation I48.91
[2021-04-09] MEDS: FUROsemide 10 mg/mL SDV 4mL 40 MG IVP (22:00)
--- NOTE | 2021-04-09 22:30 | ECG_ITS ---
[facility] Test Date: 2021-04-09 Pat Name: Zak Gibbs Department: Room: Gender: Male Operations Officer Afloat: : 1945 Requested By: Mark Hagan Order Number: [id number] Alcazar MD: Lauren Thomas M.D. Measurements Intervals [place] Rate: 56 P: UT: QRS: -46 QRSD: 158 T: 128 QT: 466 QTc: 450 Interpretive Statements ATRIAL FIBRILLATION WITH SLOW VENTRICULAR RESPONSE INTRAVENTRICULAR CONDUCTION DELAY [130+ ms QRS DURATION] PROBABLE LATERAL MYOCARDIAL INFARCTION , OF INDETERMINATE AGE [35 ms Q WAVE IN I/aVL/V5/V6] Compared to ECG 04/09/2021 20:27:15 Left-axis deviation no longer present Myocardial infarct finding still present Electronically Signed On 04-10-2021 18:27:46 CDT by Lauren Thomas M.D. [email or web address]
[2021-04-09 22:47] LABS: Troponin 5 2HR 61.08 ng/L (0-15)
[2021-04-09 22:57] LABS: NT Pro B Type Natriuretic Pept 6186 pg/mL (0-450)
[2021-04-10] VITALS (8 sets, daily range): BP systolic 101–146; BP diastolic 54–78; PULSE 53–64; RESP 16–18; TEMP 36.4–37.1; O2SAT 91–95
[2021-04-10] MEDS: hyDRALAzine 50 mg Tablet PO ×2 (00:31→12:09)
[2021-04-10] MEDS: heparin 5,000 unit/mL INJ 1 mL 5000 UNIT SUBCUT ×3 (00:31→15:56)
[2021-04-10] MEDS: aspirin 325 mg EC Tablet PO (05:44)
[2021-04-10 06:31] LABS: Basophils # 0.1 10^3/uL (0.0-0.1); Basophils % 0.8 %; Eosinophils # 0.1 10^3/uL (0.0-0.8); Eosinophils % 0.7 %; Hematocrit 36.7 % (42.0-52.0); Hemoglobin 11.5 g/dL (11.7-16.6); Lymphocytes # 1.6 10^3/uL (0.8-4.8); Lymphocytes % 21.2 %; Mean Corpuscular HGB Conc 31.3 g/dL (30.0-36.0); Mean Corpuscular Hemoglobin 28.3 pg (28.0-34.0); Mean Corpuscular Volume 90.2 fL (80-94); Mean Platelet Volume 9.8 fL (7.4-10.4); Monocytes # 0.8 10^3/uL (0.2-0.9); Monocytes % 10.8 %; Neutrophils # 4.83 10^3/uL (1.8-7.7); Nucleated Red Blood Cells % 0 %; Platelet Count 251 10^3/cmm (130-400); Red Blood Count 4.07 10^6/uL (4.1-5.3); Red Cell Distribution Width 16.4 % (12.1-15.1); White Blood Count 7.3 10^3/uL (4.0-10.0)
[2021-04-10 06:39] LABS: Glucose Point of Care 109 mg/dL (70-110)
[2021-04-10 06:54] LABS: Anion Gap 15.4 (5-19); Blood Urea Nitrogen 63 mg/dL (8-23); Calcium 9.3 mg/dL (8.5-10.5); Carbon Dioxide 27 mmol/L (22-29); Chloride 97 mmol/L (98-107); Glucose 88 mg/dL (65-115); Osmolality Calculated 297 mOsm/kg (285-295); Potassium 4.4 mmol/L (3.5-5.1); Sodium 135 mmol/L (136-145)
[2021-04-10] MEDS: isosorbide mononitrate ER 60 mg Tablet PO ×2 (08:06→17:59)
[2021-04-10] MEDS: famotidine 20 mg Tablet 40 MG PO (08:06)
[2021-04-10] MEDS: bumetanide 0.25 mg/mL SDV 4 mL 1 MG IV (08:06)
[2021-04-10] MEDS: amlodipine 5 mg Tablet PO (08:06)
--- NOTE | 2021-04-10 09:12 | P.PN_ITS ---
Subjective Subjective: Interval history: States he is not feeling any different. Wondering about going home. Denies any pain or discomfort. Denies chest pain or pressure. Does get some dyspnea on exertion. Denies any orthopnea, cannot lie completely flat. Gets leg swelling which gets somewhat better at night. Denies shortness of breath at rest. Feels shortness of breath may be mostly rel ated to his lung cancer. He is aware of having atrophic right kidney, states that that has happened probably about a year ago. States stent graft repair of abdominal aortic aneurysm worse done around 2011. He is aware of congestive heart failure. Vitals/I&O/Wt Last Vital Signs Temp 98.6 F 04/10/21 03:33 Pulse 57 L 04/10/21 03:33 Resp 17 04/10/21 03:33 BP 115/57 04/10/21 03:33 Pulse Ox 92 04/10/21 03:33 04/09/21 04/10/21 04/10/21 22:59 06:59 14:59 Intake Total 480 / 480 Output Total 1100 / 1100 Balance -1100 / -1100 480 / 480 Weight last 48 hrs Weight 94.801 kg Physical Exam Const: COMMON NORMALS: no acute distress and patient oriented x3 GENERAL APPEARANCE: frail appearing OTHER: Sitting up in chair HENMT: COMMON NORMALS: oropharynx normal Neck/C-Spine: COMMON NORMALS: no JVD Resp: COMMON NORMALS: normal respiratory effort and clear to auscultation bilaterally AUSCULTATION: clear to auscultation bilaterally Cardio: COMMON NORMALS: no JVD, regular rhythm, S1 normal heart sound present, S2 normal heart sound present and No murmurs present (Cardio) RHYTHM: regular rhythm HEART SOUNDS: S1 normal heart sound present and S2 normal heart sound present GI: COMMON NORMALS: Normal to inspection, nondistended, normoactive bowel sounds present, Soft to palpation and non-tender PALPATION: Yes Soft to palpation Extremity: COMMON NORMALS: no joint enlargement GENERAL: Yes edema (2+ localized above ankles) Neuro: COMMON NORMALS: patient oriented x3 and moves all extremities Skin: COMMON NORMALS: no rashes or lesions noted GENERAL SKIN EXAM: no rashes or lesions noted OTHER: Thin, fragile Data : 04/10/21 06:13 04/10/21 06:13 A&P Assessment and plan (1) Acute worsening of stage 3 chronic kidney disease: Losartan, TriCor on hold. For now is continued on diuretics. Overall does not have symptoms of severe CHF, does have 2+ lower extremity edema, is not orthopneic. He is also on amlodipine which may be contributing. Dyspnea on exertion, but some of this may be related to lung cancer as well. Diuretic has been deescalated somewhat to Bumex 1 mg once a day. Obtain urine studies, urinalysis, urine creatinine, urine urea. Discussed with nephrology, appreciate consultation, we will also obtain renal Doppler. Status: Acute (2) Acute exacerbation of congestive heart failure: Mild if any, as above. Hold losartan for now. Hold TriCor. Cont ASA, carvedilol, Imdur, hydralazine. Status: Acute (3) Hyperkalemia: Improved. Hold losartan. Potassium supplement. Status: Acute (4) Lung cancer: Resume follow-up with oncology after discharge. Status: Acute (5) Atrial fibrillation: Resume Coreg. Aspirin. Status: Acute Additional A&P Information Postobstructive pneumonia Chest x-ray showing right lower lobe pneumonia and a mass No active signs of sepsis, saturating well on room air He finished his Levaquin regimen Hold off on antibiotic Goals of care discussed with the patient: He wants CPR without intubation, please reevaluate in the morning Cardiac diet DVT prophylaxis Heparin Attestations Medical Necessity Statement*: Continue admission for assessment of management of acute kidney injury on chronic kidney disease in setting of congestive heart failure, lung cancer. Coding Level of Care Code Acute Poured Wall Foreman for [facility] Fwd Exam Comprehensive Diagnoses Acute worsening of stage 3 chronic kidney disease N18.30 Acute exacerbation of congestive heart failure I50.9 Hyperkalemia E87.5 Lung cancer C34.90 Atrial fibrillation I48.91
[2021-04-10 10:10] LABS: Creatine Phosphokinase 24 U/L (39-308)
[2021-04-10 11:31] LABS: Glucose Point of Care 121 mg/dL (70-110)
[2021-04-10 12:18] LABS: Add Urine Microscopic? NO; Charge for UA Resulting for Rev
[2021-04-10 12:25] LABS: Bilirubin Urine Neg (Negative); Blood Urine Neg (Negative); Glucose Urine UA Norm (Normal); Ketones Urine Negative (Negative); Leukocyte Esterase Urine Negative (Negative); Nitrate Urine Negative (Negative); Protein Urine Neg (Negative); Specific Gravity, Urine 1.005 (1.005-1.030); Urine Appearance Clear (CLEAR); Urine Color Yellow (Yellow); Urobilinogen Urine Norm (Negative); pH Urine 6.5 (5-7)
[2021-04-10 12:47] LABS: Urine Creatinine 61 mg/dL (39-259)
--- NOTE | 2021-04-10 14:23 | PM.CONSULT ---
Providers/Reason For Consult Consulting Physican/Specialty*: Nephrology Reason for Consult*: SARY Attending Physician: Jhonathan Bowman Primary Care Provider: KASHMIR Krueger History of Present Illness History of Present Illness Thank you for consultation, today I had the pleasure of reviewing this 76 year-old male for evaluation of acute renal insufficiency. He was recently hospitalized between 04/01/2021 and 04/03/2021, with newly diagnosed metastatic lung cancer. This is identified on a CT scan with intravenous contrast performed on admission. Limited echocardiogram also performed ejection fraction of 40% with diffuse hypokinesis. His outpatient diuretics were continued, and he was subsequently discharged with close follow-up from oncology. He subsequently saw Dr. Jus Schaefer on 04/09/2021 where he it was noted that he has stage IVB (T3, N2, M1c) small cell lung cancer. He was scheduled to receive combination therapy with carboplatin/etoposide, however, outpatient labs identified an elevation in serum creatinine of 4.6 and subsequently he he was referred to our facility for evaluation management. It is noted that during his recent hospitalization he was also initiated on losartan for the reduced ejection fraction. Otherwise he reports no other new additional medications including anti-inflammatory medications, proton pump inhibitors etc. He reports no new symptoms, and is relatively symptom-free. He is passing his urine without any obstructive symptoms. No extremity edema, shortness of breath or dyspnea on exertion or other symptoms of hypervolemia. He denies any overt uremic symptoms. Hemodynamics have been robust following hospitalization. He has a baseline serum creatinine of 2.2 mg/dL, previously he did follow with Dr. Sheth, however has not followed with him or his nurse practitioner for a number of years. Review of Systems Narrative: ROS - 12 point review of systems completed per HPI and subjective assessment, this includes Constitutional: No weakness, fatigue Respiratory: No SOB on exertion, comfortable at rest CardioVasc: No chest pain, palpitations Gastrointestinal: No nausea, no vomiting Neurological: No seizures, no AMS Derm: No new rashes, lesions or wounds Immunological: No seasonal and no food allergies Meds/Allergies Home Medications and Allergies Home Medications Medication Instructions Recorded Confirmed Last Taken Type nitroglycerin 0.4 mg sublingual 0.4 mg SUBLINGUAL Q5M PRN #25 tab 02/02/20 04/09/21 03/31/21 Rx tablet albuterol sulfate 2.5 mg INHALATION Q4H PRN #75 ml 01/21/21 04/09/21 Unknown Rx budesonide-formoterol HFA 160 2 puff INHALATION Q12H #10.2 gm 01/21/21 04/09/21 03/31/21 Rx mcg-4.5 mcg/actuation aerosol inhaler furosemide 40 mg tablet 40 mg PO Q12H #60 tab 01/21/21 04/09/21 04/09/21 18:00 Rx linagliptin 5 mg tablet 5 mg PO DAILY #30 tab 02/21/21 04/09/21 04/09/21 Rx amlodipine 5 mg PO DAILY 04/01/21 04/09/21 04/09/21 18:30 History carvedilol 3.125 mg PO BID #60 tab 04/03/21 04/09/21 04/09/21 18:30 Rx levofloxacin 750 mg PO DAILY 7 Days #7 tab 04/03/21 04/09/21 04/09/21 Rx losartan 25 mg PO DAILY #30 tab 04/03/21 04/09/21 04/09/21 Rx hydralazine 50 mg tablet 50 mg PO Q12H #60 tab 04/08/21 04/09/21 04/09/21 18:00 Rx 50 mg potassium chloride 10 mEq 20 meq PO BID #120 tab 04/08/21 04/09/21 04/09/21 18:00 Rx tablet,extended release(part/cryst) wheelchair #1 ea 04/08/21 04/09/21 Unknown Rx Pepcid 40 mg PO BID 04/09/21 04/09/21 04/09/21 18:00 History Tricor 145 mg PO BEDTIME 04/09/21 04/09/21 04/09/21 18:00 History aspirin 325 mg PO QAM 04/09/21 04/09/21 04/09/21 History cholecalciferol (vitamin D3) 125 mcg PO DAILY 04/09/21 04/09/21 04/09/21 History isosorbide mononitrate 60 mg PO BID 04/09/21 04/09/21 04/09/21 18:00 History Allergies Allergy/AdvReac Type Severity Reaction Status Date / Time morphine Allergy Unknown Verified 04/09/21 21:15 Current Medications Current Medications Generic Name Dose Route Start Last Admin Trade Name Amalia PRN Reason Stop Dose Admin Amlodipine Besylate 5 mg 04/10/21 09:00 04/10/21 08:06 Amlodipine 5 Mg Tablet PO 5 mg DAILY JUANI Administration Aspirin 325 mg 04/10/21 06:00 04/10/21 05:44 Aspirin 325 Mg Ec Tablet PO 325 mg QAM JUANI Administration Bumetanide 1 mg 04/10/21 09:00 04/10/21 08:06 Bumetanide 0.25 Mg/Ml Sdv 4 Ml IV 1 mg DAILY JUANI Administration Famotidine 40 mg 04/10/21 09:00 04/10/21 08:06 Famotidine 20 Mg Tablet PO 40 mg DAILY JUANI Administration Heparin Sodium (Beef Lung) 5,000 unit 04/09/21 23:51 04/10/21 08:06 Heparin 5,000 Unit/Ml Inj 1 Ml SUBCUT 5,000 unit Q8H JUANI Administration Hydralazine HCl 50 mg 04/09/21 23:51 04/10/21 12:09 Hydralazine 50 Mg Tablet PO 50 mg Q12H JUANI Administration Insulin Aspart 0 unit 04/10/21 08:00 04/10/21 11:18 Insulin Aspart 100 Unit/1 Ml SUBCUT Not Given WM&BEDTIME JUANI Protocol Isosorbide Mononitrate 60 mg 04/10/21 09:00 04/10/21 08:06 Isosorbide Mononitrate Er 60 Mg Tablet PO 60 mg BID JUANI Administration PFSH Acute PFSH: Medical History Abdominal aortic aneurysm (AAA) Aortic stenosis, mild Atrial fibrillation Bradycardia, sinus Carotid stenosis CHF (congestive heart failure) Chronic kidney disease, stage III (moderate) COPD (chronic obstructive pulmonary disease) D-dimer, elevated Dyslipidemia Elevated lipase Gastric reflux Hilar mass History of colon cancer 2014 Hx of primary malignant neoplasm of urinary bladder Hypercalcemia Hypertension Occlusion of right internal carotid artery Postobstructive pneumonia Pulmonary emphysema Renal artery stenosis Tobacco abuse Type 2 diabetes mellitus Vitamin D deficiency Surgical History Aortocoronary bypass status History of carotid artery stenosis History of endovascular stent graft for abdominal aortic aneurysm (AAA) History of fracture of right shoulder 3 times surgery- bone repair with screws and anchor History of partial colectomy History of procedure for peripheral vascular disease Right leg History of stent insertion of renal artery Status post four vessel coronary artery bypass (~02/2014) Family History Family/Other Diabetes Hypertension CAD (coronary artery disease) Social History Smoking and tobacco status: current every day smoker Second hand smoke exposure: Yes Smoking risk assessment/counseling performed?: Yes Alcohol intake: current Desire information about alcohol rehabilitation?: No Counseling given: No Desire information about substance/drug rehabilitation?: No Counseling given: No Adopted: No Caregiver/support person: No Lives independently: Yes Household members: spouse Housing: House Marital status: service: No Current occupational status: retired History of recent travel: No Current gender identity: Male Vitals/I&O/Wt Last Vital Signs Temp 97.5 F L 04/10/21 12:00 Pulse 53 L 04/10/21 12:00 Resp 18 04/10/21 12:00 BP 101/54 04/10/21 12:00 Pulse Ox 91 04/10/21 12:00 04/09/21 04/10/21 04/10/21 22:59 06:59 14:59 Intake Total 720 / 720 Output Total 1100 / 1100 Balance -1100 / -1100 720 / 720 Weight last 48 hrs Weight 94.801 kg Physical Exam Narrative: EXAM NARRATIVE: Constitutional: Awake, comfortable HEENT: Wet mucosa, no jvp, non icteric Lungs: Bilaterally clear without discernible wheeze, rales in all lung zones CVS: S1 S2, no murmurs Abdo: Soft, BS ok Ext 4: Minimal edema, peripheral perfusion with no cyanosis Neurological: Grossly non-focal A&P Additional A&P Information 1. Acute on chronic kidney disease 2 possibilities here, either we are now seeing the tail end of acute kidney damage from the administration of intravenous contrast that he received back on 04/01/2021, or, more likely, this is decreased glomerular pressure from losartan in the setting of underlying renovascular disease. We do know that he is got significant vascular disease in his abdomen having had a abdominal aortic endograft previously placed. Fortunately we are already seeing an improvement in his renal function, from a creatinine of 4.6 down to 4.3 mg/dL. Continue to hold ARB, judicious use of diuretics, avoid any further administration of intravenous contrast Further diagnostics to include renal artery Doppler, fractional excretion of urea are sent and pending, will get uric acid although I doubt she will lysis syndrome. No need for any additional IV fluid Strict ins and outs Avoid the usual nephrotoxic agents Dose medications for GFR less than 15. 2. Chemistry currently looks relatively well balanced with minor aberration, continue to monitor closely during hospitalization. 3. Hypertension Blood pressure currently looks well controlled on combination medication including amlodipine, hydralazine, isosorbide mononitrate, Bumex, carvedilol we will continue to monitor hemodynamics closely during hospitalization. 4. Recent diagnosis of stage IVb small cell lung cancer. We will need expeditious follow-up with Dr. Jus Schaefer following hospitalization for continuation of chemotherapy. I would like to thank Dr Bowman for this consultation, as always it is a pleasure to follow these patients with you. Artem Ying MD Nephrology [phone] Patient seen and examined via telemedicine, with the assistance of the bedside RN > 25 min spent in evaluation and mgmt of patient Consult Attestations Medical Necessity Statement: Eval for SARY Coding Level of Care Code Acute Finishing Lab Technician for [facility]
[2021-04-10 17:34] LABS: Glucose Point of Care 99 mg/dL (70-110)
[2021-04-10] MEDS: carvedilol 3.125 mg Tablet PO (17:59)
--- NOTE | 2021-04-10 18:50 | PC.RESP ---
Smoking Cessation information sent to patient.
[2021-04-10 19:19] LABS: Urea Nitrogen,Urine Random 409 mg/dL
[2021-04-10 20:36] LABS: Glucose Point of Care 108 mg/dL (70-110)
[2021-04-11] VITALS (9 sets, daily range): BP systolic 100–127; BP diastolic 52–69; PULSE 52–89; RESP 18–20; TEMP 36.4–36.9; O2SAT 91–97
[2021-04-11] MEDS: heparin 5,000 unit/mL INJ 1 mL 5000 UNIT SUBCUT ×2 (00:37→08:23)
[2021-04-11] MEDS: hyDRALAzine 50 mg Tablet PO ×2 (00:37→08:23)
[2021-04-11 05:26] LABS: Basophils # 0.1 10^3/uL (0.0-0.1); Basophils % 0.7 %; Eosinophils # 0.1 10^3/uL (0.0-0.8); Eosinophils % 1.1 %; Hematocrit 39.2 % (42.0-52.0); Hemoglobin 12.4 g/dL (11.7-16.6); Lymphocytes # 1.9 10^3/uL (0.8-4.8); Lymphocytes % 25.2 %; Mean Corpuscular HGB Conc 31.6 g/dL (30.0-36.0); Mean Corpuscular Hemoglobin 28.4 pg (28.0-34.0); Mean Corpuscular Volume 89.9 fL (80-94); Mean Platelet Volume 9.5 fL (7.4-10.4); Monocytes # 0.7 10^3/uL (0.2-0.9); Monocytes % 8.9 %; Neutrophils # 4.78 10^3/uL (1.8-7.7); Neutrophils % 63.4 %; Nucleated Red Blood Cells % 0 %; Platelet Count 261 10^3/cmm (130-400); Red Blood Count 4.36 10^6/uL (4.1-5.3); White Blood Count 7.5 10^3/uL (4.0-10.0)
[2021-04-11] MEDS: aspirin 325 mg EC Tablet PO (05:29)
[2021-04-11 05:45] LABS: Anion Gap 15.3 (5-19); Blood Urea Nitrogen 54 mg/dL (8-23); Calcium 9.6 mg/dL (8.5-10.5); Carbon Dioxide 27 mmol/L (22-29); Chloride 94 mmol/L (98-107); Glucose 114 mg/dL (65-115); Osmolality Calculated 290 mOsm/kg (285-295); Potassium 4.3 mmol/L (3.5-5.1); Sodium 132 mmol/L (136-145)
[2021-04-11 06:39] LABS: Glucose Point of Care 106 mg/dL (70-110)
--- NOTE | 2021-04-11 07:00 | USCV_ITS ---
Bernie, Max Age: 76 Gender: M : 1945 Exam Date: 04/11/2021 06:19 Ordering Phys: Jhonathan Bowman MD Technologist: Ex[place] [facility] [place]: SARY Aortic Velocity @ SMA (cm/s) 66.5 RIGHT KIDNEY LEFT KIDNEY Velocity (cm/s) Velocity (cm/s) Sys/Morales Sys/Morales Resistive Index Resistive Index 60.2 / 19.6 0.67 Proximal Renal Artery 51.9 / 11.1 0.79 84.0 / 22.9 0.73 Mid Renal Artery 42.6 / 12.8 0.70 71.7 / 19.8 0.72 Distal Renal Artery 49.6 / 13.4 0.73 76.3 / 18.3 0.76 Hilar 33.7 / 2.6 0.92 55.0 / 12.2 0.78 Upper Pole 19.8 / 5.8 0.70 29.6 / 6.6 0.78 Mid Pole 30.1 / 5.2 0.83 25.0 / 10.5 0.58 Lower Pole 25.0 / 5.8 0.77 1.30 Renal Aortic Ratio 0.78 Accleration Index (cm/sec2) 237.00 Hilar 375.00 358.00 Upper Pole 292.00 147.00 Mid Pole 271.00 161.00 Lower Pole 297.00 81.8 Kidney Length (mm) 11.0 FINDINGS Non diagnostic evaluation of the renal arteries. The aorta is not visualized adequately for doppler evaluation. The doppler velocities in the right kidney do not correlate with the renal atrophy and severe proximal artery calcification. Poor doppler evaluation of the left kidney. CONCLUSIONS Non diagnostic exam of the renal arteries. Technically poor quality exam. Dr. Nicole Bravo DO (Electronically Signed) Final Date: 11 Apr 2021 08:25 S
[2021-04-11] MEDS: amlodipine 5 mg Tablet PO (08:23)
[2021-04-11] MEDS: carvedilol 3.125 mg Tablet PO (08:23)
[2021-04-11] MEDS: isosorbide mononitrate ER 60 mg Tablet PO (08:23)
[2021-04-11] MEDS: famotidine 20 mg Tablet 40 MG PO (08:23)
[2021-04-11] MEDS: bumetanide 0.25 mg/mL SDV 4 mL 1 MG IV (09:08)
[2021-04-11 09:54] LABS: Uric Acid 12.5 mg/dL (3.4-7.0)
[2021-04-11 11:58] LABS: Glucose Point of Care 130 mg/dL (70-110)
--- NOTE | 2021-04-11 12:48 | PM.PN ---
Subjective Subjective: Interval history: feels much better, anxious for discharge. states he weighs himself QAM and can adjust furosemide has seen category specialist as outpatient in past Medications: Reviewed: Yes Vitals/I&O/Wt Last Vital Signs Temp 98.1 F 04/11/21 10:00 Pulse 89 04/11/21 10:00 Resp 18 04/11/21 10:00 BP 100/52 04/11/21 10:00 Pulse Ox 94 04/11/21 10:00 04/10/21 04/11/21 04/11/21 22:59 06:59 14:59 Intake Total 600 / 1320 860 / 860 Output Total 500 / 500 250 / 750 Balance 100 / 820 -250 / 570 860 / 860 Weight last 48 hrs Weight 94.801 kg Physical Exam Const: COMMON NORMALS: no acute distress GENERAL APPEARANCE: cooperative Extremity: GENERAL: No edema Data : 04/11/21 05:08 04/11/21 05:08 CT Abd/Pel: Radiologist's impression: 1. Infiltrate within the right lower lobe with right pleural effusion. 2. Stent graft repair surgery of the abdominal aorta extending into the common iliac arteries. 3. Cholelithiasis. 4. 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 5. No evidence for bowel obstruction or bowel wall thickening. 6. Atrophic right kidney. Complex bilateral renal cysts. 7. Overall, no significant change since the old exam. A&P Additional A&P Information 1. Acute kidney injury, improving. Chronic kidney disease, baseline serum Cr approx 2 mg/dL. Atrophic right kidney possibly due to renal artery disease. 2. CHF, compensated 3. Metastatic small cell lung cancer 4. Mild hyponatremia 5. Hyperuricemia Recommend: Discontinue amlodipine. Do not resume ARB or ACEi. Close outpatient follow-up with consideration to begin allopurinol. Attestations Medical Necessity Statement*: per primary service Time Spent in Patient Care: 16 - 35 minutes Coding Level of Care Code Acute Learning And Development Coordinator for [facility]
--- NOTE | 2021-04-11 21:26 | PM.DCS ---
Discharge Providers Date of Admission: 04/09/21 21:13 Date of Discharge: April 11, 2021 Attending Provider at Admission: Pancho Seth MD Attending Provider at Discharge: Jhonathan Bowman Primary Care Provider: KASHMIR Krueger Diagnoses at Discharge Discharge Diagnosis (1) Acute worsening of stage 3 chronic kidney disease: Status: Acute (2) Acute exacerbation of congestive heart failure: Status: Acute (3) Hyperkalemia: Status: Inactive (4) Lung cancer: Status: Inactive (5) Atrial fibrillation: Status: Acute Reason for Visit Reason for Visit: kidney issues/dr schaffer ref Hospital Course Hospital Course Pleasant 76-year-old gentleman with 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 Losartan was held, diuretic was deescalated to Bumex 1 mg daily. No obstructive pathology seen on CT abdomen pelvis. Noted atrophic right kidney which she is aware, states has known this for at least about a year. 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 Of note he had recently completed course of Levaquin for pneumonia, with visibility of infiltrate right lower lobe. He has had no respiratory complaints during the hospitalization. Overall he is feeling good, at his usual baseline. Due to aortic stent graft he was additionally assessed by renal Doppler ultrasound, however, due to technical difficulty study could not be adequately interpreted. With adjustment of his medications, de-escalation of diuretic acute kidney injury was improving, with creatinine decreased down to 3.6. As he was otherwise doing well, he requested to return home today to follow-up with outpatient sap manager whom he is referred. Losartan is held at discharge. Blood pressure somewhat soft, in the low 100s, due to which amlodipine is discontinued as well. He continues on his cardiac medications including hydralazine, Imdur, carvedilol, however, please reassess blood pressures in office, and it may be that these medications may need to be further de-escalate, to avoid contributing to kidney injury from hypotension. Physical Exam Narrative: EXAM NARRATIVE: at bedside. Const: COMMON NORMALS: no acute distress and patient oriented x3 GENERAL APPEARANCE: frail appearing OTHER: Sitting up in chair HENMT: COMMON NORMALS: oropharynx normal Neck/C-Spine: COMMON NORMALS: no JVD Resp: COMMON NORMALS: normal respiratory effort and clear to auscultation bilaterally AUSCULTATION: clear to auscultation bilaterally Cardio: COMMON NORMALS: no JVD, regular rhythm, S1 normal heart sound present, S2 normal heart sound present and No murmurs present (Cardio) RHYTHM: regular rhythm HEART SOUNDS: S1 normal heart sound present and S2 normal heart sound present GI: COMMON NORMALS: Normal to inspection, nondistended, normoactive bowel sounds present, Soft to palpation and non-tender PALPATION: Yes Soft to palpation Extremity: COMMON NORMALS: no joint enlargement GENERAL: Yes edema (2+ localized above ankles) Neuro: COMMON NORMALS: patient oriented x3 and moves all extremities Skin: COMMON NORMALS: no rashes or lesions noted GENERAL SKIN EXAM: no rashes or lesions noted OTHER: Thin, fragile Discharge Data Data Completed and Pending: Completed Studies During Hospitalization Category Date Time Status CT abdomen pelvis wo con [id number] Urge nt Cat Scan 04/09/21 20:32 Completed XR chest 1V pola ble [id number] Urgent Exams 04/09/21 19:06 Completed CV renal doppler [id number] Routine Ultrasound 04/11/21 07:00 Completed Labs from last 24 hours 04/11/21 04/11/21 04/11/21 10:54 06:29 05:08 WBC RBC Hgb Hct MCV MCH MCHC RDW Plt Count MPV Neut % (Auto) Lymph % (Auto) [place] % (Auto) Eos % (Auto) Baso % (Auto) Neut # (Auto) Lymph # (Auto) [place] # (Auto) Eos # (Auto) Baso # (Auto) Nucleated RBC % (a uto) Nucleated RBCs # Sodium Potassium Chloride Carbon Dioxide Anion Gap BUN Creatinine GFR Calculation Glucose POC Glucose 130 H 106 Calculated Osmolal ity Uric Acid 12.5 H Calcium 04/11/21 04/11/21 05:08 05:08 WBC 7.5 RBC 4.36 Hgb 12.4 Hct 39.2 L MCV 89.9 MCH 28.4 MCHC 31.6 RDW 16.0 H Plt Count 261 MPV 9.5 Neut % (Auto) 63.4 Lymph % (Auto) 25.2 [place] % (Auto) 8.9 Eos % (Auto) 1.1 Baso % (Auto) 0.7 Neut # (Auto) 4.78 Lymph # (Auto) 1.9 [place] # (Auto) 0.7 Eos # (Auto) 0.1 Baso # (Auto) 0.1 Nucleated RBC % (a uto) 0 Nucleated RBCs # 0.0 Sodium 132 L Potassium 4.3 Chloride 94 L Carbon Dioxide 27 Anion Gap 15.3 BUN 54 H Creatinine 3.6 H GFR Calculation Not Reportable Glucose 114 POC Glucose Calculated Osmolal ity 290 Uric Acid Calcium 9.6 Vitals: Last Vital Signs Temp 97.7 F 04/11/21 14:00 Pulse 56 L 04/11/21 14:00 Resp 18 04/11/21 14:00 BP 117/69 04/11/21 14:00 Pulse Ox 94 04/11/21 14:00 Discharge Plan Discharge Patient Disposition: Home Condition: Stable Prescriptions: Continued nitroglycerin [Nitrostat] 0.4 mg tablet, sublingual 0.4 mg SUBLINGUAL Q5M PRN (Reason: chest pain) Qty: 25 RF: 5 budesonide-formoterol [Symbicort] 160-4.5 mcg/actuation HFA aerosol inhaler 2 puff INHALATION Q12H Qty: 10.2 RF: 2 albuterol sulfate 2.5 mg /3 mL (0.083 %) solution for nebulization 2.5 mg inhalation Q4H PRN (Reason: shortness of breath or wheezing) Qty: 75 RF: 2 potassium chloride 10 mEq tablet,ER particles/crystals 20 meq PO BID Qty: 120 RF: 2 hydralazine 50 mg tablet 50 mg PO Q12H Qty: 60 RF: 2 (DME) wheelchair See Rx Instructions .Route .MEDSUPPLY Qty: 1 RF: 0 Tradjenta 5 mg tablet 5 mg PO DAILY Qty: 30 RF: 2 Pepcid 40 mg tablet 40 mg PO BID RF: 0 isosorbide mononitrate 60 mg tablet extended release 24 hr 60 mg PO BID RF: 0 aspirin 325 mg tablet,delayed release (DR/EC) 325 mg PO QAM RF: 0 cholecalciferol (vitamin D3) 125 mcg (5,000 unit) capsule 125 mcg PO DAILY RF: 0 Tricor 145 mg tablet 145 mg PO BEDTIME RF: 0 carvedilol 3.125 mg Tablet 3.125 mg PO BID Qty: 60 RF: 0 levofloxacin 750 mg tablet 750 mg PO DAILY 7 Days Qty: 7 RF: 0 Changed furosemide 40 mg tablet 40 mg PO DAILY Qty: 60 RF: 2 Discontinued amlodipine 5 mg tablet 5 mg PO DAILY RF: 0 losartan 25 mg tablet 25 mg PO DAILY Qty: 30 RF: 0 Discharge Orders: Discharge Order (Routine); Ordered 04/11/21 Ordered By: Jhonathan Bowman Referrals: [facility] [Outside] Glenys Portillo FNP-C [Primary Care Provider] - 04/18/21 11:00 am () Jus Schaffer MD [Hospitalist] - 04/15/21 8:30 am ([facility] will call you with an appointment.) Discharge Diet: Cardiac Discharge Activity: Increase activity as tolerated Patient Instructions: Acute Kidney Injury (GEN), How to Take a Blood Pressure (GEN), Hyperkalemia (GEN), Opioid Safety Activity Restrictions/Additional Instructions: Please follow-up with your primary care doctor to reassess regarding acute kidney injury. Please discuss with them referral to follow-up with kidney specialist. Please discuss with them also repeat study of renal arteries since ultrasound while in the hospital was not of good quality and did not allow for good assessment. Consideration may be given to repeat ultrasound or MRI. Due to kidney injury losartan for now is discontinued. Please discuss with your primary care provider regarding pneumonia and follow-up with them to ensure resolution. Please follow-up with your oncologist in office. Please discuss with your primary care provider that for now your losartan has been discontinued. Please have them follow-up your potassium level which was high in the hospital. Please monitor your blood pressures 3 times daily. Her blood pressures are on the soft side due to this losartan, amlodipine are now discontinued. In case your blood pressures continue to be soft, some of your other medications doses may need to be decreased as well. Discharge Attestations Time Spent in Discharge Care*: greater than 30 min Status at Discharge: Cognitive status at discharge: cognitively intact, Behavioral status at discharge: cooperative, Quality Metrics Clinical Quality Measures During this hospital stay, did patient experience: None Coding Level of Care Code Acute Chg FW DC note Diagnoses Acute worsening of stage 3 chronic kidney disease N18.30 Acute exacerbation of congestive heart failure I50.9 Hyperkalemia E87.5 Lung cancer C34.90 Atrial fibrillation I48.91
== END 2021-04-11 14:35 | disposition home health service (06) | DRG 291 ==
LOC: ER 21:41 → MEDSURG 23:20
PROVIDERS: Emergency Medicine; Admitting Provider Internal Medicine; Emergency Provider Family Medicine; PCP Nurse Practitioner; Visit Provider Internal Medicine
DX: I13.0 Hypertensive heart and chronic kidney disease with heart failure and stage 1 through stage 4 chronic kidney disease, or unspecified chronic kidney disease (principal); I50.33 Acute on chronic diastolic (congestive) heart failure; J18.9 Pneumonia, unspecified organism; N17.9 Acute kidney failure, unspecified; C34.31 Malignant neoplasm of lower lobe, right bronchus or lung; Q61.02 Congenital multiple renal cysts; N18.30 Chronic kidney disease, stage 3 unspecified; E11.22 Type 2 diabetes mellitus with diabetic chronic kidney disease; I48.91 Unspecified atrial fibrillation; I35.0 Nonrheumatic aortic (valve) stenosis; J43.9 Emphysema, unspecified; I25.10 Atherosclerotic heart disease of native coronary artery without angina pectoris; Z95.5 Presence of coronary angioplasty implant and graft; Z85.038 Personal history of other malignant neoplasm of large intestine; Z85.51 Personal history of malignant neoplasm of bladder; I25.5 Ischemic cardiomyopathy; F17.210 Nicotine dependence, cigarettes, uncomplicated; Z87.01 Personal history of pneumonia (recurrent); E87.5 Hyperkalemia; E78.5 Hyperlipidemia, unspecified; Z79.51 Long term (current) use of inhaled steroids; I72.4 Aneurysm of artery of lower extremity; N26.1 Atrophy of kidney (terminal); I70.1 Atherosclerosis of renal artery; Z90.49 Acquired absence of other specified parts of digestive tract; E55.9 Vitamin D deficiency, unspecified; K21.9 Gastro-esophageal reflux disease without esophagitis
CPT/HCPCS: 36415; 36416; 71045; 74176; 80048; 80053; 81003; 82550; 82570; 82962; 83880; 84443; 84484; 84540; 84550; 85025; 93005; 93975; 96361; 96372; 96374; 99205; 99285; J1644; J1940; J3490; Q3014

== ENCOUNTER 2021-04-15 06:09 | Outpatient (CLI) | payer MEDICARE, SELFPAY ==
[2021-04-15 09:30] LABS: Basophils # 0.1 10^3/uL (0.0-0.1); Basophils % 0.5 %; Eosinophils % 0.3 %; Hematocrit 39.1 % (42.0-52.0); Hemoglobin 12.4 g/dL (11.7-16.6); Lymphocytes # 1.9 10^3/uL (0.8-4.8); Lymphocytes % 18.8 %; Mean Corpuscular HGB Conc 31.7 g/dL (30.0-36.0); Mean Corpuscular Hemoglobin 28.5 pg (28.0-34.0); Mean Corpuscular Volume 89.9 fL (80-94); Mean Platelet Volume 10.3 fL (7.4-10.4); Monocytes # 0.8 10^3/uL (0.2-0.9); Monocytes % 7.8 %; Neutrophils # 7.08 10^3/uL (1.8-7.7); Neutrophils % 71.8 %; Nucleated Red Blood Cells % 0 %; Platelet Count 261 10^3/cmm (130-400); Red Blood Count 4.35 10^6/uL (4.1-5.3); Red Cell Distribution Width 16.1 % (12.1-15.1); White Blood Count 9.9 10^3/uL (4.0-10.0)
[2021-04-15 09:48] LABS: Alanine Aminotransferase 6 U/L (0-41); Albumin Level 3.7 g/dL (3.5-5.2); Alkaline Phosphatase 35 IU/L (40-130); Aspartate Amino Transferase 17 U/L (0-40); Blood Urea Nitrogen 37 mg/dL (8-23); Calcium 9.9 mg/dL (8.5-10.5); Carbon Dioxide 25 mmol/L (22-29); Chloride 98 mmol/L (98-107); Glucose 102 mg/dL (65-115); Osmolality Calculated 291 mOsm/kg (285-295); Sodium 136 mmol/L (136-145); Total Bilirubin 0.5 mg/dL (0.15-1.2); Total Protein 6.7 g/dL (6.6-8.7)
[2021-04-15] MEDS: sodium chloride 0.9% 250 ML IV (10:30)
[2021-04-15] MEDS: ondansetron 2 mg/ML SDV 2 mL 8 MG IVP (10:30)
== END 2021-04-15 06:10 | disposition home or self-care (01) ==
LOC: ONCMED 06:11
PROVIDERS: PCP Nurse Practitioner; Visit Provider Nurse Practitioner
DX: Z51.12 Encounter for antineoplastic immunotherapy (principal); Z51.11 Encounter for antineoplastic chemotherapy; C34.31 Malignant neoplasm of lower lobe, right bronchus or lung; J44.9 Chronic obstructive pulmonary disease, unspecified; Z79.899 Other long term (current) drug therapy
CPT/HCPCS: 80053; 85025; 96367; 96413; 96417; J1100; J2405; J7040; J7050; J9045; J9173; J9181

== ENCOUNTER 2021-04-16 09:04 | Outpatient (CLI) | payer MEDICARE, SELFPAY ==
[2021-04-16] MEDS: sodium chloride 0.9% 250 ML IV (10:09)
[2021-04-16] MEDS: ondansetron 2 mg/ML SDV 2 mL 8 MG IVP (10:09)
== END 2021-04-16 09:05 | disposition home or self-care (01) ==
LOC: ONCMED 09:06
PROVIDERS: PCP Nurse Practitioner; Visit Provider Internal Medicine Medical Oncology
DX: Z51.11 Encounter for antineoplastic chemotherapy (principal); C34.31 Malignant neoplasm of lower lobe, right bronchus or lung; J44.9 Chronic obstructive pulmonary disease, unspecified; Z79.899 Other long term (current) drug therapy
CPT/HCPCS: 96367; 96413; J1100; J2405; J7040; J7050; J9181

== ENCOUNTER 2021-04-17 06:20 | Outpatient (CLI) | payer MEDICARE, SELFPAY ==
[2021-04-17] MEDS: palonosetron 0.25 mg/5 mL SDV IVP (10:08)
[2021-04-17] MEDS: sodium chloride 0.9% 250 ML IV (10:36)
== END 2021-04-17 06:21 | disposition home or self-care (01) ==
LOC: ONCMED 06:22
PROVIDERS: PCP Nurse Practitioner; Visit Provider Internal Medicine Medical Oncology
DX: Z51.11 Encounter for antineoplastic chemotherapy (principal); C34.31 Malignant neoplasm of lower lobe, right bronchus or lung; J44.9 Chronic obstructive pulmonary disease, unspecified; Z79.899 Other long term (current) drug therapy
CPT/HCPCS: 96367; 96413; J1100; J2469; J7040; J7050; J9181

== ENCOUNTER → 2021-04-18 11:42 | Outpatient (BNVA) | payer MEDICARE, SELFPAY | PROVIDERS: PCP Nurse Practitioner; Visit Provider Nurse Practitioner | DX: I10 Essential (primary) hypertension (principal); C34.31 Malignant neoplasm of lower lobe, right bronchus or lung; N18.30 Chronic kidney disease, stage 3 unspecified | CPT/HCPCS: 80048; 85025 ==

== ENCOUNTER 2021-04-23 04:20 | Outpatient (CLI) | payer MEDICARE, SELFPAY ==
[2021-04-23 18:14] LABS: Basophils % 1.7 %; Hematocrit 35.6 % (42.0-52.0); Lymphocytes % 83.8 %; Mean Corpuscular HGB Conc 30.9 g/dL (30.0-36.0); Mean Corpuscular Hemoglobin 28.8 pg (28.0-34.0); Mean Corpuscular Volume 93.2 fL (80-94); Mean Platelet Volume 10.1 fL (7.4-10.4); Monocytes % 2.6 %; Neutrophils % 10.2 %; Nucleated Red Blood Cells % 0 %; Platelet Count 136 10^3/cmm (130-400); Red Blood Count 3.82 10^6/uL (4.1-5.3); Red Cell Distribution Width 15.8 % (12.1-15.1); White Blood Count 1.2 10^3/uL (4.0-10.0)
[2021-04-23 18:32] LABS: Alanine Aminotransferase < 5 U/L (0-41); Albumin Level 3.1 g/dL (3.5-5.2); Alkaline Phosphatase 29 IU/L (40-130); Anion Gap 9.6 (5-19); Aspartate Amino Transferase 22 U/L (0-40); Blood Urea Nitrogen 45 mg/dL (8-23); Calcium 8.8 mg/dL (8.5-10.5); Carbon Dioxide 35 mmol/L (22-29); Chloride 96 mmol/L (98-107); Globulin 2.8 g/dL (1.3-4.6); Glucose 92 mg/dL (65-115); Osmolality Calculated 295 mOsm/kg (285-295); Potassium 3.6 mmol/L (3.5-5.1); Sodium 137 mmol/L (136-145); Total Bilirubin 0.5 mg/dL (0.15-1.2); Total Protein 5.9 g/dL (6.6-8.7)
[2021-04-23 18:35] LABS: Neutrophils # 0.12 10^3/uL (1.8-7.7)
== END 2021-04-23 04:21 | disposition home or self-care (01) ==
LOC: ONCMED 04-24 10:43
PROVIDERS: PCP Nurse Practitioner; Visit Provider Internal Medicine Medical Oncology
DX: C34.31 Malignant neoplasm of lower lobe, right bronchus or lung (principal)
CPT/HCPCS: 80053; 85025